=== PATIENT | male | born 1955 | race Two or more races ===

== ENCOUNTER 2020-08-28 10:47 | Inpatient (IN) | payer MEDICAID, OTHER ==
[~2020-08-28] VITALS: Ht 154.9 cm; Wt 74.6 kg
[2020-08-28 11:59] LABS: Basophils # (auto) 0 10 ^3/uL (0-0.2); Basophils % (auto) 0.2 % (0.0-2.0); Eosinophils # (auto) 0 10 ^3/uL (0-0.8); Hematocrit 36.6 % (41.0-53.0); Hemoglobin 12.1 g/dL (13.5-17.5); Lymphocytes # (auto) 1.6 10 ^3/uL (0.4-5.4); Lymphocytes % (auto) 12.2 % (10.0-50.0); Mean Corpuscular Hemoglobin 29.2 pg (28.0-32.0); Mean Corpuscular Volume 88.5 fL (80.0-100.0); Monocytes # (auto) 0.2 10 ^3/uL (0-1.3); Monocytes % (auto) 1.3 % (0.0-12.0); Neutrophils % (auto) 86.3 % (37.0-80.0); Nucleated Red Blood Cells % 0.2 %; Platelet Count (auto) 250 10^3/uL (140-450); Red Blood Cells 4.14 10^6/uL (4.5-5.90); Red Cell Distribution Width 15.2 % (11.8-14.3); White Blood Cell 12.8 10^3/uL (4.4-10.8)
[2020-08-28] MEDS ORDERED: SODIUM CHLORIDE 0.9% 1,000 ML IV ONE (12:00)
[2020-08-28 12:18] LABS: INR 1.02 (0.9-1.15); Partial Thromboplastin Time 34.2 sec (23.0-31.2)
[2020-08-28 12:20] LABS: Albumin 1.3 g/dL (3.4-5.0); BUN/Creatinine Ratio 12.6; Calcium 7.9 mg/dL (8.5-10.1); Potassium 3.5 mmol/L (3.5-5.1)
[2020-08-28 12:25] LABS: Lactic Acid w/Reflex 5.8 mmol/L (0.4-2.0)
[2020-08-28 12:27] LABS: Bilirubin, Total 0.4 mg/dL (0.2-1.0); Total Protein 6.3 g/dL (6.4-8.2)
[2020-08-28] MEDS ORDERED: DexAMETHasone SOD PHOS 10MG/1ML VIAL INJ IV ONE (12:45)
[2020-08-28] MEDS ORDERED: AZITHROMYCIN 500MG/ 250ML 250 ML IV ONE (12:45)
[2020-08-28] MEDS ORDERED: HYDROcodone-ACET 5/325MG TAB PO PRN (14:00)
[2020-08-28] MEDS ORDERED: NITROGLYCERIN 0.4 MG SL TAB SL PRN (14:00)
[2020-08-28] MEDS ORDERED: MORPHINE SULF INJ 2 MG/ML SYRINGE 1ML IV PRN ×2 (14:00)
[2020-08-28] MEDS ORDERED: ONDANSETRON HCL 4 MG/2 ML VIAL IV PRN (14:00)
[2020-08-28] MEDS ORDERED: DEXTROSE (50%) 50ML SYRG IV PRN (14:00)
[2020-08-28] MEDS ORDERED: REMDESIVIR PER PHARMACY 0 ML IV SCH (14:00)
[2020-08-28] MEDS ORDERED: ACETAMINOPHEN 500 MG TAB PO PRN (14:00)
[2020-08-28] MEDS ORDERED: FUROSEMIDE 40 MG/4 ML VIAL IV ONE (14:15)
[2020-08-28 14:40] LABS: HDL Cholesterol 54 mg/dL (40-59); LDL Cholesterol 130 mg/dL (< 100); Lactate Dehydrogenase 641 U/L (87-241); Triglycerides 334 mg/dL (< 150)
[2020-08-28 14:51] LABS: CRP High Sensitivity > 19.0 mg/dL (< 0.3)
[2020-08-28 14:53] LABS: Cholesterol 248 mg/dL (< 200)
[2020-08-28] MEDS: ACCU-CHEK COMFORT CURVE STRIP VI SCH ×2 (16:55→21:57)
[2020-08-28] MEDS: InsuLIN REG 1unit/0.01ml Soln (100units/ml) SC SCH ×2 (17:26→21:57)
[2020-08-28] MEDS: BUDESONIDE (INHALATION) 180 MCG IH IN SCH (22:00)
[2020-08-29] MEDS: BUDESONIDE (INHALATION) 180 MCG IH IN SCH ×2 (06:20→18:44)
[2020-08-29] MEDS: ACCU-CHEK COMFORT CURVE STRIP VI SCH ×4 (06:26→22:00)
[2020-08-29] MEDS: InsuLIN REG 1unit/0.01ml Soln (100units/ml) SC SCH ×4 (06:26→22:00)
[2020-08-29 06:42] LABS: Basophils # (auto) 0 10 ^3/uL (0-0.2); Basophils % (auto) 0.2 % (0.0-2.0); Eosinophils # (auto) 0 10 ^3/uL (0-0.8); Hematocrit 36.6 % (41.0-53.0); Hemoglobin 11.7 g/dL (13.5-17.5); Lymphocytes % (auto) 7.7 % (10.0-50.0); Mean Corpuscular Hemoglobin 28.7 pg (28.0-32.0); Mean Corpuscular Hgb Conc. 32.1 g/dL (32.0-36.0); Mean Corpuscular Volume 89.4 fL (80.0-100.0); Monocytes # (auto) 0.2 10 ^3/uL (0-1.3); Monocytes % (auto) 1.4 % (0.0-12.0); Neutrophils # (auto) 11.7 10 ^3/uL (1.6-8.6); Neutrophils % (auto) 90.7 % (37.0-80.0); Platelet Count (auto) 245 10^3/uL (140-450); Red Blood Cells 4.09 10^6/uL (4.5-5.90); Red Cell Distribution Width 15.7 % (11.8-14.3); White Blood Cell 12.9 10^3/uL (4.4-10.8)
[2020-08-29 07:15] LABS: BUN/Creatinine Ratio 17.5; Bilirubin, Total 0.4 mg/dL (0.2-1.0); Calcium 8.3 mg/dL (8.5-10.1); Total Protein 6.5 g/dL (6.4-8.2)
[2020-08-29 07:21] LABS: Albumin 1.1 g/dL (3.4-5.0)
[2020-08-29 07:23] LABS: Potassium 4.3 mmol/L (3.5-5.1)
[2020-08-29] MEDS ORDERED: cefTRIAXone 1GM/50ML D5W 50 ML IV SCH (09:00)
[2020-08-29] MEDS: ZINC SULFATE 220mg CAP or TAB PO SCH (10:45)
[2020-08-29] MEDS: DexAMETHasone SOD PHOS 10MG/1ML VIAL INJ IV SCH (10:45)
[2020-08-29] MEDS: CHOLECALCIFEROL (VITD3) 2,000 UNIT CAP/TAB PO SCH (10:46)
[2020-08-29] MEDS: ENOXAPARIN SOD 80 MG/0.8ML SYRINGE SC SCH (10:46)
[2020-08-29] MEDS: ASCORBIC ACID 1,000 MG TAB PO SCH (10:46)
[2020-08-29] MEDS: FAMOTIDINE 20 MG TAB PO SCH (10:46)
[2020-08-29] MEDS ORDERED: METF-371 PO (13:47)
[2020-08-29] MEDS ORDERED: LOSA-69 PO (13:47)
[2020-08-29] MEDS ORDERED: HYDR25TA5 PO (13:47)
[2020-08-29 14:36] LABS: Urine Bacteria FEW /hpf (None Seen); Urine Blood TRACE /uL (Negative); Urine Specific Gravity 1.012 (1.001-1.035); Urine Sperm PRESENT /hpf (None Seen); Urine WBC <1 /hpf (0 - 3)
[2020-08-29] MEDS ORDERED: REMDESIVIR 200 MG in NS 210ml LOADING DOSE ADULT IV ONE (15:00)
[2020-08-29 15:03] LABS: Amphetamine Screen, Urine NEGATIVE (NEGATIVE); Barbiturate Scree,Urine NEGATIVE (NEGATIVE); Benzodiazephine Screen, Urine NEGATIVE (NEGATIVE); Cannabinoid Screen, Urine NEGATIVE (NEGATIVE); Cocaine Screen, Urine NEGATIVE (NEGATIVE); Opiate Scree,Urine NEGATIVE (NEGATIVE); Phencyclidine Screen, Urine NEGATIVE (NEGATIVE)
[2020-08-29 15:06] LABS: Alcohol, Urine < 3.0 mg/dL (0-10)
[2020-08-29] MEDS: PIPERACILLIN-TAZOB 2.25GM 50 ML IV SCH (19:09)
[2020-08-29] MEDS: INSULIN LANTUS (GLARGINE) 1 /0.01ml (100units/ml) SC SCH (22:00)
[2020-08-29] MEDS: ATORVASTATIN 20 MG TAB PO SCH (22:00)
[2020-08-29] MEDS: METOPROLOL TARTRATE 25 MG TAB PO SCH (22:00)
[2020-08-30] MEDS: PIPERACILLIN-TAZOB 2.25GM 50 ML IV SCH ×4 (00:22→19:30)
[2020-08-30] MEDS: BUDESONIDE (INHALATION) 180 MCG IH IN SCH ×2 (06:08→21:56)
[2020-08-30] MEDS: InsuLIN REG 1unit/0.01ml Soln (100units/ml) SC SCH ×4 (06:12→22:00)
[2020-08-30] MEDS: ACCU-CHEK COMFORT CURVE STRIP VI SCH ×4 (06:13→22:00)
[2020-08-30 06:29] LABS: Basophils # (auto) 0 10 ^3/uL (0-0.2); Basophils % (auto) 0.2 % (0.0-2.0); Eosinophils # (auto) 0 10 ^3/uL (0-0.8); Hemoglobin 11.9 g/dL (13.5-17.5); Lymphocytes # (auto) 0.7 10 ^3/uL (0.4-5.4); Lymphocytes % (auto) 4.7 % (10.0-50.0); Mean Corpuscular Hemoglobin 28.8 pg (28.0-32.0); Mean Corpuscular Hgb Conc. 32.2 g/dL (32.0-36.0); Mean Corpuscular Volume 89.4 fL (80.0-100.0); Monocytes # (auto) 0.2 10 ^3/uL (0-1.3); Monocytes % (auto) 1.5 % (0.0-12.0); Neutrophils # (auto) 14.1 10 ^3/uL (1.6-8.6); Neutrophils % (auto) 93.6 % (37.0-80.0); Nucleated Red Blood Cells % 0.1 %; Platelet Count (auto) 276 10^3/uL (140-450); Red Blood Cells 4.14 10^6/uL (4.5-5.90); Red Cell Distribution Width 15.4 % (11.8-14.3); White Blood Cell 15.1 10^3/uL (4.4-10.8)
[2020-08-30 06:41] LABS: Lactic Acid w/Reflex 3.2 mmol/L (0.4-2.0)
[2020-08-30 06:45] LABS: Potassium 3.8 mmol/L (3.5-5.1)
[2020-08-30 06:58] LABS: BUN/Creatinine Ratio 21.9; Bilirubin, Total 0.2 mg/dL (0.2-1.0); Calcium 8.3 mg/dL (8.5-10.1); Magnesium 2.8 mg/dL (1.6-2.6); Total Protein 6.4 g/dL (6.4-8.2)
[2020-08-30 07:29] LABS: Albumin 0.9 g/dL (3.4-5.0)
[2020-08-30] MEDS: DexAMETHasone SOD PHOS 10MG/1ML VIAL INJ IV SCH (10:27)
[2020-08-30] MEDS: ZINC SULFATE 220mg CAP or TAB PO SCH (10:27)
[2020-08-30] MEDS: METOPROLOL TARTRATE 25 MG TAB PO SCH ×2 (10:27→22:00)
[2020-08-30] MEDS: ASCORBIC ACID 1,000 MG TAB PO SCH (10:28)
[2020-08-30] MEDS: ENOXAPARIN SOD 80 MG/0.8ML SYRINGE SC SCH (10:28)
[2020-08-30] MEDS: FAMOTIDINE 20 MG TAB PO SCH (10:28)
[2020-08-30] MEDS: CHOLECALCIFEROL (VITD3) 2,000 UNIT CAP/TAB PO SCH (10:28)
[2020-08-30] MEDS: REMDESIVIR 100 MG in SODIUM CHL 0.9% 250 ML IV SCH (15:00)
[2020-08-30] MEDS: INSULIN LANTUS (GLARGINE) 1 /0.01ml (100units/ml) SC SCH (22:00)
[2020-08-30] MEDS: ATORVASTATIN 20 MG TAB PO SCH (22:00)
[2020-08-31] MEDS: PIPERACILLIN-TAZOB 2.25GM 50 ML IV SCH ×4 (00:07→18:00)
[2020-08-31] MEDS ORDERED: LORazepam 2MG/ML-1ML VIAL IV ONE ×2 (05:15→12:30)
[2020-08-31] MEDS ORDERED: LORazepam 2MG/ML-1ML VIAL ONE (05:18)
[2020-08-31] MEDS: InsuLIN REG 1unit/0.01ml Soln (100units/ml) SC SCH ×4 (06:27→22:39)
[2020-08-31] MEDS: ACCU-CHEK COMFORT CURVE STRIP VI SCH ×4 (06:27→22:37)
[2020-08-31 06:53] LABS: Basophils # (auto) 0 10 ^3/uL (0-0.2); Basophils % (auto) 0.3 % (0.0-2.0); Eosinophils # (auto) 0 10 ^3/uL (0-0.8); Hematocrit 33.2 % (41.0-53.0); Hemoglobin 10.5 g/dL (13.5-17.5); Lymphocytes # (auto) 0.4 10 ^3/uL (0.4-5.4); Lymphocytes % (auto) 3.2 % (10.0-50.0); Mean Corpuscular Hgb Conc. 31.7 g/dL (32.0-36.0); Mean Corpuscular Volume 88.3 fL (80.0-100.0); Monocytes # (auto) 0.3 10 ^3/uL (0-1.3); Monocytes % (auto) 2.4 % (0.0-12.0); Neutrophils # (auto) 12.3 10 ^3/uL (1.6-8.6); Neutrophils % (auto) 94.1 % (37.0-80.0); Nucleated Red Blood Cells % 0.3 %; Platelet Count (auto) 279 10^3/uL (140-450); Red Blood Cells 3.76 10^6/uL (4.5-5.90); White Blood Cell 13.1 10^3/uL (4.4-10.8)
[2020-08-31 07:24] LABS: Potassium 3.6 mmol/L (3.5-5.1)
[2020-08-31 07:46] LABS: BUN/Creatinine Ratio 26.1; Calcium 8.1 mg/dL (8.5-10.1); Phosphorus 3.9 mg/dL (2.5-4.90)
[2020-08-31] MEDS: BUDESONIDE (INHALATION) 180 MCG IH IN SCH ×2 (08:20→22:00)
[2020-08-31] MEDS: METOPROLOL TARTRATE 25 MG TAB PO SCH ×2 (10:00→22:00)
[2020-08-31] MEDS: ENOXAPARIN SOD 80 MG/0.8ML SYRINGE SC SCH (10:00)
[2020-08-31] MEDS: FAMOTIDINE 20 MG TAB PO SCH (10:00)
[2020-08-31] MEDS: DexAMETHasone SOD PHOS 10MG/1ML VIAL INJ IV SCH (10:00)
[2020-08-31] MEDS: ASCORBIC ACID 1,000 MG TAB PO SCH (10:00)
[2020-08-31] MEDS: ZINC SULFATE 220mg CAP or TAB PO SCH (10:00)
[2020-08-31] MEDS: CHOLECALCIFEROL (VITD3) 2,000 UNIT CAP/TAB PO SCH (10:00)
[2020-08-31] MEDS ORDERED: HALOPERIDOL LACTATE 5 MG/ML INJ VIAL IM ONE (12:30)
[2020-08-31] MEDS ORDERED: ETOMIDATE (2MG/ML) 20ML VIAL IV ONE ×2 (13:14→13:30)
[2020-08-31] MEDS ORDERED: MIDAZOLAM DRIP 50 mg/50mL 50 ML IV ONE ×2 (13:16→13:49)
[2020-08-31 13:35] VITALS: BP 148/96
[2020-08-31] MEDS ORDERED: PROPOFOL 100 ML IV ONE (13:38)
[2020-08-31] MEDS: fentaNYL Drip 2500mCg/250mlNS 250 ML IV SCH (14:00)
[2020-08-31] MEDS ORDERED: REMDESIVIR PER PHARMACY 0 ML IV SCH (14:00)
[2020-08-31] MEDS: MIDAZOLAM DRIP 50 mg/50mL 50 ML IV SCH (14:10)
[2020-08-31] MEDS: PROPOFOL 100 ML IV SCH (14:42)
[2020-08-31] MEDS: REMDESIVIR 100 MG in SODIUM CHL 0.9% 250 ML IV SCH (15:00)
[2020-08-31 18:44] VITALS: BP 133/86
[2020-08-31] MEDS ORDERED: NOREPINEPHRINE 8 MG/250ML KIT 250 ML IV ONE (19:28)
[2020-08-31] MEDS: NOREPINEPHRINE 8 MG/250ML KIT 250 ML IV SCH (19:52)
[2020-08-31] MEDS: INSULIN LANTUS (GLARGINE) 1 /0.01ml (100units/ml) SC SCH (22:38)
[2020-08-31] MEDS: ATORVASTATIN 20 MG TAB PO SCH (22:39)
[2020-09-01] VITALS (17 sets, daily range): BP systolic 91–136; BP diastolic 52–71
[2020-09-01] MEDS: PIPERACILLIN-TAZOB 2.25GM 50 ML IV SCH ×4 (01:00→17:52)
[2020-09-01 03:29] LABS: Urine Bacteria NONE SEEN /hpf (None Seen); Urine Blood 3+ /uL (Negative); Urine Hyaline Cast FEW /lpf (0 - 2); Urine Mucus FEW (None Seen); Urine Specific Gravity 1.019 (1.001-1.035); Urine WBC 28 /hpf (0 - 3)
[2020-09-01 03:35] LABS: Protein, Urine 571.6 mg/dL (0.0-11.9)
[2020-09-01 06:04] LABS: Basophils # (auto) 0 10 ^3/uL (0-0.2); Basophils % (auto) 0.3 % (0.0-2.0); Eosinophils # (auto) 0 10 ^3/uL (0-0.8); Hematocrit 32.3 % (41.0-53.0); Hemoglobin 10.3 g/dL (13.5-17.5); Lymphocytes # (auto) 0.7 10 ^3/uL (0.4-5.4); Lymphocytes % (auto) 5.2 % (10.0-50.0); Mean Corpuscular Hemoglobin 28.5 pg (28.0-32.0); Mean Corpuscular Hgb Conc. 32.1 g/dL (32.0-36.0); Monocytes # (auto) 0.4 10 ^3/uL (0-1.3); Monocytes % (auto) 3.1 % (0.0-12.0); Neutrophils # (auto) 11.4 10 ^3/uL (1.6-8.6); Neutrophils % (auto) 91.4 % (37.0-80.0); Nucleated Red Blood Cells % 0.3 %; Platelet Count (auto) 265 10^3/uL (140-450); Red Blood Cells 3.63 10^6/uL (4.5-5.90); Red Cell Distribution Width 15.1 % (11.8-14.3); White Blood Cell 12.5 10^3/uL (4.4-10.8)
[2020-09-01 06:22] LABS: Potassium 4.2 mmol/L (3.5-5.1)
[2020-09-01 06:29] LABS: Calcium 7.7 mg/dL (8.5-10.1)
[2020-09-01] MEDS: ACCU-CHEK COMFORT CURVE STRIP VI SCH ×4 (06:53→22:51)
[2020-09-01] MEDS: InsuLIN REG 1unit/0.01ml Soln (100units/ml) SC SCH ×4 (06:54→23:02)
[2020-09-01] MEDS ORDERED: Glucerna 1.2 Cal 1Liter BOTTLE GT SCH (09:15)
[2020-09-01] MEDS: BUDESONIDE (INHALATION) 180 MCG IH IN SCH (09:30)
[2020-09-01] MEDS: ASCORBIC ACID 1,000 MG TAB PO SCH (10:00)
[2020-09-01] MEDS: CHOLECALCIFEROL (VITD3) 2,000 UNIT CAP/TAB PO SCH (10:00)
[2020-09-01] MEDS: ZINC SULFATE 220mg CAP or TAB PO SCH (10:00)
[2020-09-01] MEDS: PANTOPRAZOLE 40 MG/10 ML VIAL INJ IV SCH (10:00)
[2020-09-01] MEDS: DexAMETHasone SOD PHOS 10MG/1ML VIAL INJ IV SCH (10:00)
[2020-09-01] MEDS: ENOXAPARIN SOD 80 MG/0.8ML SYRINGE SC SCH (10:00)
[2020-09-01] MEDS: MIDAZOLAM DRIP 50 mg/50mL 50 ML IV SCH ×2 (14:00→18:27)
[2020-09-01] MEDS: fentaNYL Drip 2500mCg/250mlNS 250 ML IV SCH (14:00)
[2020-09-01] MEDS: PROPOFOL 100 ML IV SCH (14:30)
[2020-09-01] MEDS: ATORVASTATIN 20 MG TAB PO SCH (22:57)
[2020-09-01] MEDS: INSULIN LANTUS (GLARGINE) 1 /0.01ml (100units/ml) SC SCH (23:03)
[2020-09-02 02:55] VITALS: BP 99/54
[2020-09-02] MEDS: MIDAZOLAM DRIP 50 mg/50mL 50 ML IV SCH (04:08)
[2020-09-02 05:11] LABS: Urine Amorphous Crystal MOD /hpf (None Seen); Urine Bacteria MANY /hpf (None Seen); Urine Blood 3+ /uL (Negative); Urine Mucus MODERATE (None Seen); Urine Specific Gravity 1.022 (1.001-1.035); Urine WBC 11 /hpf (0 - 3)
[2020-09-02 05:32] LABS: Protein, Urine 689.3 mg/dL (0.0-11.9)
[2020-09-02] MEDS: PIPERACILLIN-TAZOB 2.25GM 50 ML IV SCH ×4 (06:00→17:26)
[2020-09-02 06:20] VITALS: BP 95/56
[2020-09-02] MEDS: ACCU-CHEK COMFORT CURVE STRIP VI SCH ×4 (06:42→22:28)
[2020-09-02] MEDS: InsuLIN REG 1unit/0.01ml Soln (100units/ml) SC SCH ×4 (06:48→22:28)
[2020-09-02] MEDS: NOREPINEPHRINE 8 MG/250ML KIT 250 ML IV SCH ×2 (06:54→19:45)
[2020-09-02] MEDS: ENOXAPARIN SOD 80 MG/0.8ML SYRINGE SC SCH (09:02)
[2020-09-02] MEDS: PANTOPRAZOLE 40 MG/10 ML VIAL INJ IV SCH (09:02)
[2020-09-02] MEDS: DexAMETHasone SOD PHOS 10MG/1ML VIAL INJ IV SCH (09:02)
[2020-09-02] MEDS: ZINC SULFATE 220mg CAP or TAB PO SCH (09:18)
[2020-09-02] MEDS: CHOLECALCIFEROL (VITD3) 2,000 UNIT CAP/TAB PO SCH (09:18)
[2020-09-02] MEDS: ASCORBIC ACID 1,000 MG TAB PO SCH (09:18)
[2020-09-02 09:19] LABS: Hematocrit 33.4 % (41.0-53.0); Hemoglobin 10.6 g/dL (13.5-17.5); Mean Corpuscular Hemoglobin 28.5 pg (28.0-32.0); Mean Corpuscular Hgb Conc. 31.8 g/dL (32.0-36.0); Mean Corpuscular Volume 89.7 fL (80.0-100.0); Platelet Count (auto) 302 10^3/uL (140-450); Red Blood Cells 3.72 10^6/uL (4.5-5.90); Red Cell Distribution Width 15.3 % (11.8-14.3); White Blood Cell 18.7 10^3/uL (4.4-10.8)
[2020-09-02 09:40] LABS: Calcium 7.5 mg/dL (8.5-10.1); Potassium 4.1 mmol/L (3.5-5.1)
[2020-09-02 09:41] LABS: Basophils % (manual) 0 (0.0-2.0); Blast Cells 0; Eosinophils % (manual) 0 (0-7); Metamyelocytes % 0; Myelocytes % 0; Promyelocytes % 0; Reactive Lymphocytes 0
[2020-09-02 09:42] LABS: BUN/Creatinine Ratio 21.1
[2020-09-02] MEDS ORDERED: ACETAMINOPHEN 650 mg PER 20.3 mL UD ONE (09:56)
[2020-09-02 10:17] LABS: Band Neutrophils % (manual) 2; Lymphocytes % (manual) 12 (10.0-50.0); Monocytes % (manual) 1 (0-12)
[2020-09-02] MEDS: ACETAMINOPHEN 650 mg PER 20.3 mL UD PO PRN (10:26)
[2020-09-02 13:10] VITALS: BP 127/62
[2020-09-02] MEDS: fentaNYL Drip 2500mCg/250mlNS 250 ML IV SCH (14:00)
[2020-09-02] MEDS: PROPOFOL 100 ML IV SCH (14:30)
[2020-09-02] MEDS ORDERED: SODIUM CHLORIDE 0.9% 1,000 ML IV ONE (15:45)
[2020-09-02] MEDS ORDERED: REMDESIVIR PER PHARMACY 0 ML IV SCH (16:00)
[2020-09-02] MEDS: DOPamine 1600MCG/ML D5W 250 ML IV SCH (16:43)
[2020-09-02] MEDS ORDERED: LINEZOLID 600MG/300ML 300 ML IV ONE (18:00)
[2020-09-02 18:31] VITALS: BP 131/58
[2020-09-02] MEDS: REMDESIVIR 100 MG in SODIUM CHL 0.9% 250 ML IV SCH (20:00)
[2020-09-02] MEDS: INSULIN LANTUS (GLARGINE) 1 /0.01ml (100units/ml) SC SCH (22:28)
[2020-09-02 22:30] VITALS: BP 126/66
[2020-09-03] MEDS: PIPERACILLIN-TAZOB 2.25GM 50 ML IV SCH ×4 (00:13→18:00)
[2020-09-03 01:44] VITALS: BP 113/63
[2020-09-03] MEDS: LINEZOLID 600MG/300ML 300 ML IV SCH ×2 (03:51→16:00)
[2020-09-03 06:05] VITALS: BP 144/72
[2020-09-03 06:11] LABS: Hemoglobin 8.3 g/dL (13.5-17.5)
[2020-09-03 06:13] LABS: Hematocrit 25.6 % (41.0-53.0); Mean Corpuscular Hemoglobin 29.1 pg (28.0-32.0); Mean Corpuscular Hgb Conc. 32.3 g/dL (32.0-36.0); Platelet Count (auto) 308 10^3/uL (140-450); Red Blood Cells 2.84 10^6/uL (4.5-5.90); Red Cell Distribution Width 15.2 % (11.8-14.3); White Blood Cell 13.5 10^3/uL (4.4-10.8)
[2020-09-03 06:22] LABS: Potassium 3.8 mmol/L (3.5-5.1)
[2020-09-03 06:29] LABS: Albumin 1.2 g/dL (3.4-5.0); Bilirubin, Total 0.3 mg/dL (0.2-1.0); Calcium 7.3 mg/dL (8.5-10.1); Magnesium 3.3 mg/dL (1.6-2.6); Total Protein 5.6 g/dL (6.4-8.2)
[2020-09-03 06:35] LABS: INR 1.08 (0.9-1.15)
[2020-09-03] MEDS: ACCU-CHEK COMFORT CURVE STRIP VI SCH ×3 (06:35→17:22)
[2020-09-03] MEDS: InsuLIN REG 1unit/0.01ml Soln (100units/ml) SC SCH ×3 (06:36→17:21)
[2020-09-03 06:44] LABS: Basophils % (manual) 0 (0.0-2.0); Blast Cells 0; Eosinophils % (manual) 0 (0-7); Myelocytes % 0; Promyelocytes % 0; Reactive Lymphocytes 0
[2020-09-03 09:38] LABS: Band Neutrophils % (manual) 5; Lymphocytes % (manual) 11 (10.0-50.0); Metamyelocytes % 2; Monocytes % (manual) 3 (0-12)
[2020-09-03] MEDS: ENOXAPARIN SOD 80 MG/0.8ML SYRINGE SC SCH (10:00)
[2020-09-03] MEDS: PANTOPRAZOLE 40 MG/10 ML VIAL INJ IV SCH (10:00)
[2020-09-03] MEDS: DexAMETHasone SOD PHOS 10MG/1ML VIAL INJ IV SCH (10:00)
[2020-09-03] MEDS: ASCORBIC ACID 1,000 MG TAB PO SCH (10:00)
[2020-09-03] MEDS: CHOLECALCIFEROL (VITD3) 2,000 UNIT CAP/TAB PO SCH (10:00)
[2020-09-03] MEDS: ZINC SULFATE 220mg CAP or TAB PO SCH (10:00)
[2020-09-03 13:22] VITALS: BP 138/71
[2020-09-03] MEDS: fentaNYL Drip 2500mCg/250mlNS 250 ML IV SCH (14:00)
[2020-09-03] MEDS: MIDAZOLAM DRIP 50 mg/50mL 50 ML IV SCH (14:00)
[2020-09-03] MEDS ORDERED: DEXTROSE (50%) 50ML SYRG IV PRN (14:15)
[2020-09-03] MEDS: PROPOFOL 100 ML IV SCH ×3 (14:30→21:00)
[2020-09-03] MEDS: REMDESIVIR 100 MG in SODIUM CHL 0.9% 250 ML IV SCH ×2 (15:00→18:32)
[2020-09-03] MEDS: DOPamine 1600MCG/ML D5W 250 ML IV SCH (16:30)
[2020-09-03 19:30] VITALS: BP 137/70
[2020-09-03] MEDS: INSULIN LANTUS (GLARGINE) 1 /0.01ml (100units/ml) SC SCH (22:00)
[2020-09-03 22:16] VITALS: BP 152/77
[2020-09-04] MEDS: PIPERACILLIN-TAZOB 2.25GM 50 ML IV SCH ×4 (00:12→18:00)
[2020-09-04 02:04] VITALS: BP 127/77
[2020-09-04] MEDS: LINEZOLID 600MG/300ML 300 ML IV SCH ×2 (04:00→20:45)
[2020-09-04] MEDS: ACCU-CHEK COMFORT CURVE STRIP VI SCH ×4 (06:00→17:51)
[2020-09-04] MEDS: InsuLIN REG 1unit/0.01ml Soln (100units/ml) SC SCH ×4 (06:00→17:51)
[2020-09-04] MEDS: PROPOFOL 100 ML IV SCH ×2 (06:53→17:53)
[2020-09-04 07:42] LABS: Hematocrit 33.5 % (41.0-53.0); Hemoglobin 10.8 g/dL (13.5-17.5); Mean Corpuscular Hemoglobin 29.8 pg (28.0-32.0); Mean Corpuscular Hgb Conc. 32.1 g/dL (32.0-36.0); Mean Corpuscular Volume 92.7 fL (80.0-100.0); Platelet Count (auto) 308 10^3/uL (140-450); Red Blood Cells 3.62 10^6/uL (4.5-5.90); Red Cell Distribution Width 15.6 % (11.8-14.3); White Blood Cell 13.2 10^3/uL (4.4-10.8)
[2020-09-04 07:45] VITALS: BP 119/71
[2020-09-04 08:09] LABS: Potassium 3.6 mmol/L (3.5-5.1)
[2020-09-04 08:26] LABS: Albumin 1.1 g/dL (3.4-5.0); BUN/Creatinine Ratio 27.2; Bilirubin, Total 0.3 mg/dL (0.2-1.0); CRP High Sensitivity 4.73 mg/dL (< 0.3); Calcium 7.4 mg/dL (8.5-10.1); Total Protein 5.6 g/dL (6.4-8.2)
[2020-09-04 08:28] LABS: Band Neutrophils % (manual) 0; Basophils % (manual) 0 (0.0-2.0); Blast Cells 0; Myelocytes % 0; Promyelocytes % 0; Reactive Lymphocytes 0
[2020-09-04] MEDS: CHOLECALCIFEROL (VITD3) 2,000 UNIT CAP/TAB PO SCH (10:00)
[2020-09-04] MEDS: ENOXAPARIN SOD 80 MG/0.8ML SYRINGE SC SCH (10:00)
[2020-09-04] MEDS: DexAMETHasone SOD PHOS 10MG/1ML VIAL INJ IV SCH (10:00)
[2020-09-04] MEDS: ZINC SULFATE 220mg CAP or TAB PO SCH (10:00)
[2020-09-04] MEDS: ASCORBIC ACID 1,000 MG TAB PO SCH (10:00)
[2020-09-04] MEDS: PANTOPRAZOLE 40 MG/10 ML VIAL INJ IV SCH (10:00)
[2020-09-04 12:30] LABS: Eosinophils % (manual) 1 (0-7); Lymphocytes % (manual) 5 (10.0-50.0); Metamyelocytes % 2; Monocytes % (manual) 2 (0-12)
[2020-09-04] MEDS: MIDAZOLAM DRIP 50 mg/50mL 50 ML IV SCH (14:00)
[2020-09-04] MEDS: fentaNYL Drip 2500mCg/250mlNS 250 ML IV SCH (14:00)
[2020-09-04] MEDS: REMDESIVIR 100 MG in SODIUM CHL 0.9% 250 ML IV SCH (15:00)
[2020-09-04] MEDS: DOPamine 1600MCG/ML D5W 250 ML IV SCH (16:30)
[2020-09-04 18:20] VITALS: BP 104/60
[2020-09-05] MEDS: ACCU-CHEK COMFORT CURVE STRIP VI SCH ×5 (00:05→23:42)
[2020-09-05] MEDS: PIPERACILLIN-TAZOB 2.25GM 50 ML IV SCH ×5 (00:28→23:42)
[2020-09-05] MEDS: INSULIN LANTUS (GLARGINE) 1 /0.01ml (100units/ml) SC SCH ×2 (00:30→22:00)
[2020-09-05 03:19] VITALS: BP 104/60
[2020-09-05] MEDS: ACETAMINOPHEN 650 mg PER 20.3 mL UD PO PRN ×2 (03:37→04:50)
[2020-09-05] MEDS: LINEZOLID 600MG/300ML 300 ML IV SCH ×2 (04:00→16:00)
[2020-09-05] MEDS: InsuLIN REG 1unit/0.01ml Soln (100units/ml) SC SCH ×5 (06:00→23:41)
[2020-09-05 06:25] LABS: Potassium 3.3 mmol/L (3.5-5.1)
[2020-09-05 06:49] LABS: BUN/Creatinine Ratio 25.9; Bilirubin, Total 0.5 mg/dL (0.2-1.0); Calcium 7.5 mg/dL (8.5-10.1); Total Protein 5.6 g/dL (6.4-8.2)
[2020-09-05 07:02] VITALS: BP 123/60
[2020-09-05] MEDS: ZINC SULFATE 220mg CAP or TAB PO SCH (10:00)
[2020-09-05] MEDS: CHOLECALCIFEROL (VITD3) 2,000 UNIT CAP/TAB PO SCH (10:00)
[2020-09-05] MEDS: ASCORBIC ACID 1,000 MG TAB PO SCH (10:00)
[2020-09-05] MEDS: DexAMETHasone SOD PHOS 10MG/1ML VIAL INJ IV SCH (10:00)
[2020-09-05] MEDS: ENOXAPARIN SOD 80 MG/0.8ML SYRINGE SC SCH (10:00)
[2020-09-05] MEDS: PANTOPRAZOLE 40 MG/10 ML VIAL INJ IV SCH (10:00)
[2020-09-05] MEDS: fentaNYL Drip 2500mCg/250mlNS 250 ML IV SCH (14:00)
[2020-09-05] MEDS: MIDAZOLAM DRIP 50 mg/50mL 50 ML IV SCH (14:00)
[2020-09-05] MEDS: DOPamine 1600MCG/ML D5W 250 ML IV SCH (16:44)
[2020-09-05 18:48] VITALS: BP 128/75
[2020-09-05 22:21] VITALS: BP 152/75
[2020-09-06] MEDS: PROPOFOL 100 ML IV SCH (01:40)
[2020-09-06 01:56] VITALS: BP 132/77
[2020-09-06] MEDS: LINEZOLID 600MG/300ML 300 ML IV SCH ×2 (04:00→17:12)
[2020-09-06 06:01] VITALS: BP 126/71
[2020-09-06 06:03] LABS: Potassium 3.8 mmol/L (3.5-5.1)
[2020-09-06] MEDS: InsuLIN REG 1unit/0.01ml Soln (100units/ml) SC SCH ×3 (06:09→18:39)
[2020-09-06 06:10] LABS: BUN/Creatinine Ratio 28.5; Bilirubin, Total 0.4 mg/dL (0.2-1.0); Calcium 8.1 mg/dL (8.5-10.1); Total Protein 5.5 g/dL (6.4-8.2)
[2020-09-06] MEDS: ACCU-CHEK COMFORT CURVE STRIP VI SCH ×3 (06:22→18:39)
[2020-09-06] MEDS: PIPERACILLIN-TAZOB 2.25GM 50 ML IV SCH ×3 (06:22→18:34)
[2020-09-06] MEDS: CHOLECALCIFEROL (VITD3) 2,000 UNIT CAP/TAB PO SCH (10:45)
[2020-09-06] MEDS: DexAMETHasone SOD PHOS 10MG/1ML VIAL INJ IV SCH (10:45)
[2020-09-06] MEDS: ZINC SULFATE 220mg CAP or TAB PO SCH (10:45)
[2020-09-06] MEDS: ENOXAPARIN SOD 80 MG/0.8ML SYRINGE SC SCH (10:45)
[2020-09-06] MEDS: PANTOPRAZOLE 40 MG/10 ML VIAL INJ IV SCH (10:45)
[2020-09-06] MEDS: ASCORBIC ACID 1,000 MG TAB PO SCH (10:45)
[2020-09-06] MEDS: fentaNYL Drip 2500mCg/250mlNS 250 ML IV SCH (14:00)
[2020-09-06] MEDS: MIDAZOLAM DRIP 50 mg/50mL 50 ML IV SCH (14:00)
[2020-09-06 17:12] VITALS: BP 115/70
[2020-09-06 17:27] VITALS: BP 122/80
[2020-09-06 18:30] VITALS: BP 107/60
[2020-09-06 20:29] VITALS: BP 115/56
[2020-09-06] MEDS: INSULIN LANTUS (GLARGINE) 1 /0.01ml (100units/ml) SC SCH (23:13)
[2020-09-07 01:25] VITALS: BP 117/60
[2020-09-07] MEDS: PIPERACILLIN-TAZOB 2.25GM 50 ML IV SCH ×5 (01:54→23:42)
[2020-09-07] MEDS: InsuLIN REG 1unit/0.01ml Soln (100units/ml) SC SCH ×5 (02:07→23:42)
[2020-09-07] MEDS: LINEZOLID 600MG/300ML 300 ML IV SCH ×2 (04:26→15:37)
[2020-09-07 05:27] LABS: Basophils # (auto) 0 10 ^3/uL (0-0.2); Basophils % (auto) 0.2 % (0.0-2.0); Eosinophils # (auto) 0 10 ^3/uL (0-0.8); Eosinophils % (auto) 0.4 % (0.0-7.0); Hemoglobin 7.3 g/dL (13.5-17.5); Lymphocytes # (auto) 0.5 10 ^3/uL (0.4-5.4); Monocytes # (auto) 0.3 10 ^3/uL (0-1.3); Monocytes % (auto) 2.3 % (0.0-12.0); Nucleated Red Blood Cells % 0.1 %
[2020-09-07 05:31] LABS: Hematocrit 22.2 % (41.0-53.0); Lymphocytes % (auto) 3.8 % (10.0-50.0); Mean Corpuscular Hemoglobin 29.1 pg (28.0-32.0); Mean Corpuscular Hgb Conc. 32.8 g/dL (32.0-36.0); Mean Corpuscular Volume 88.6 fL (80.0-100.0); Neutrophils # (auto) 11.4 10 ^3/uL (1.6-8.6); Neutrophils % (auto) 93.3 % (37.0-80.0); Platelet Count (auto) 383 10^3/uL (140-450); Red Cell Distribution Width 15.2 % (11.8-14.3); White Blood Cell 12.2 10^3/uL (4.4-10.8)
[2020-09-07 05:44] LABS: INR 1.06 (0.9-1.15)
[2020-09-07 05:51] LABS: Anion Gap 9 (5-15); Blood Urea Nitrogen 77 mg/dL (7-18); Calcium 7.6 mg/dL (8.5-10.1); Carbon Dioxide 21 mmol/L (21-32); Chloride 110 mmol/L (98-107); Glucose 281 mg/dL (74-106); Magnesium 3.6 mg/dL (1.6-2.6); Potassium 3.5 mmol/L (3.5-5.1); Sodium 140 mmol/L (136-145)
[2020-09-07 06:00] LABS: GFR African American 35 mL/min; GFR Non-African American 29 mL/min; Lactate Dehydrogenase 387 U/L (87-241)
[2020-09-07] MEDS: ACCU-CHEK COMFORT CURVE STRIP VI SCH ×5 (06:11→23:42)
[2020-09-07 06:15] VITALS: BP 115/58
[2020-09-07 06:32] LABS: CRP High Sensitivity > 19.0 mg/dL (< 0.3)
[2020-09-07] MEDS: ZINC SULFATE 220mg CAP or TAB PO SCH (09:20)
[2020-09-07] MEDS: PANTOPRAZOLE 40 MG/10 ML VIAL INJ IV SCH (09:20)
[2020-09-07] MEDS: DexAMETHasone SOD PHOS 10MG/1ML VIAL INJ IV SCH ×2 (09:20→21:22)
[2020-09-07] MEDS: ENOXAPARIN SOD 80 MG/0.8ML SYRINGE SC SCH (09:21)
[2020-09-07] MEDS: ASCORBIC ACID 1,000 MG TAB PO SCH (09:21)
[2020-09-07] MEDS: CHOLECALCIFEROL (VITD3) 2,000 UNIT CAP/TAB PO SCH (09:21)
[2020-09-07] MEDS: fentaNYL Drip 2500mCg/250mlNS 250 ML IV SCH (12:42)
[2020-09-07] MEDS ORDERED: FUROSEMIDE 40 MG/4 ML VIAL IV ONE (12:45)
[2020-09-07] MEDS ORDERED: POTASSIUM CHL 10 Meq TABLET PO ONE (12:45)
[2020-09-07] MEDS ORDERED: POTASSIUM EFFERVESENT TAB 25 MEQ PO ONE (13:00)
[2020-09-07] MEDS: MIDAZOLAM DRIP 50 mg/50mL 50 ML IV SCH (14:00)
[2020-09-07] MEDS ORDERED: methylPREDNISolone SOD SUCC 40 MG/ML VL IV ONE (17:00)
[2020-09-07] MEDS ORDERED: diphenhdrAMINE HCL 50 MG/1 ML VL IV ONE (17:00)
[2020-09-07] MEDS ORDERED: ACETAMINOPHEN 650 mg PER 20.3 mL UD PO ONE (17:00)
[2020-09-07] MEDS ORDERED: TOCILIZUMAB 400 MG in SODIUM CHL 0.9% 80 ML IV ONE (17:30)
[2020-09-07] MEDS: FUROSEMIDE 40 MG/4 ML VIAL IV SCH (17:33)
[2020-09-07 19:25] VITALS: BP 119/15
[2020-09-07] MEDS: INSULIN LANTUS (GLARGINE) 1 /0.01ml (100units/ml) SC SCH (21:22)
[2020-09-07 22:20] VITALS: BP 151/78
[2020-09-08] MEDS: LINEZOLID 600MG/300ML 300 ML IV SCH ×2 (04:08→17:45)
[2020-09-08 04:21] LABS: Basophils # (auto) 0 10 ^3/uL (0-0.2); Eosinophils # (auto) 0 10 ^3/uL (0-0.8); Lymphocytes # (auto) 0.6 10 ^3/uL (0.4-5.4); Mean Corpuscular Volume 87.8 fL (80.0-100.0); Monocytes # (auto) 0.3 10 ^3/uL (0-1.3); Monocytes % (auto) 2.4 % (0.0-12.0); Neutrophils # (auto) 13.2 10 ^3/uL (1.6-8.6); Neutrophils % (auto) 92.9 % (37.0-80.0); White Blood Cell 14.2 10^3/uL (4.4-10.8)
[2020-09-08 04:24] LABS: Basophils % (auto) 0.3 % (0.0-2.0); Hematocrit 25.7 % (41.0-53.0); Hemoglobin 8.3 g/dL (13.5-17.5); Lymphocytes % (auto) 4.4 % (10.0-50.0); Mean Corpuscular Hemoglobin 28.3 pg (28.0-32.0); Mean Corpuscular Hgb Conc. 32.2 g/dL (32.0-36.0); Platelet Count (auto) 534 10^3/uL (140-450); Red Blood Cells 2.92 10^6/uL (4.5-5.90); Red Cell Distribution Width 15.2 % (11.8-14.3)
[2020-09-08 04:40] LABS: Potassium 3.7 mmol/L (3.5-5.1)
[2020-09-08 04:46] LABS: Albumin 1.3 g/dL (3.4-5.0); Bilirubin, Total 0.3 mg/dL (0.2-1.0); Calcium 7.9 mg/dL (8.5-10.1); Magnesium 3.4 mg/dL (1.6-2.6)
[2020-09-08] MEDS: PIPERACILLIN-TAZOB 2.25GM 50 ML IV SCH ×4 (05:27→22:57)
[2020-09-08] MEDS: FUROSEMIDE 40 MG/4 ML VIAL IV SCH ×2 (05:27→17:45)
[2020-09-08] MEDS: ACCU-CHEK COMFORT CURVE STRIP VI SCH ×4 (06:00→21:05)
[2020-09-08] MEDS: InsuLIN REG 1unit/0.01ml Soln (100units/ml) SC SCH ×4 (06:00→21:04)
[2020-09-08 06:20] VITALS: BP 155/84
[2020-09-08] MEDS ORDERED: ACETAMINOPHEN 650 mg PER 20.3 mL UD PO ONE (08:30)
[2020-09-08] MEDS ORDERED: methylPREDNISolone SOD SUCC 40 MG/ML VL IV ONE (08:30)
[2020-09-08] MEDS ORDERED: diphenhdrAMINE HCL 50 MG/1 ML VL IV ONE (08:30)
[2020-09-08] MEDS: DexAMETHasone SOD PHOS 10MG/1ML VIAL INJ IV SCH ×2 (08:37→20:45)
[2020-09-08] MEDS: ZINC SULFATE 220mg CAP or TAB PO SCH (08:37)
[2020-09-08] MEDS: PANTOPRAZOLE 40 MG/10 ML VIAL INJ IV SCH (08:37)
[2020-09-08] MEDS: ENOXAPARIN SOD 80 MG/0.8ML SYRINGE SC SCH (08:38)
[2020-09-08] MEDS: ASCORBIC ACID 1,000 MG TAB PO SCH (08:38)
[2020-09-08] MEDS: CHOLECALCIFEROL (VITD3) 2,000 UNIT CAP/TAB PO SCH (08:38)
[2020-09-08] MEDS: POTASSIUM EFFERVESENT TAB 25 MEQ PO SCH (08:38)
[2020-09-08] MEDS ORDERED: TOCILIZUMAB 400 MG in SODIUM CHL 0.9% 80 ML IV ONE (09:00)
[2020-09-08] MEDS ORDERED: POTASSIUM CHL 10 Meq TABLET PO SCH (10:00)
[2020-09-08] MEDS: hydrALAZINE HCL 20 MG/ML VL IV PRN ×2 (17:45→22:58)
[2020-09-08] MEDS: INSULIN LANTUS (GLARGINE) 1 /0.01ml (100units/ml) SC SCH (21:03)
[2020-09-09] MEDS: LINEZOLID 600MG/300ML 300 ML IV SCH ×2 (04:08→16:06)
[2020-09-09] MEDS: ACCU-CHEK COMFORT CURVE STRIP VI SCH ×3 (05:52→18:02)
[2020-09-09] MEDS: InsuLIN REG 1unit/0.01ml Soln (100units/ml) SC SCH ×3 (06:04→18:05)
[2020-09-09] MEDS: PIPERACILLIN-TAZOB 2.25GM 50 ML IV SCH ×3 (06:26→17:51)
[2020-09-09] MEDS: FUROSEMIDE 40 MG/4 ML VIAL IV SCH ×2 (06:27→17:51)
[2020-09-09 07:24] LABS: Hemoglobin 9.6 g/dL (13.5-17.5)
[2020-09-09 07:27] LABS: Hematocrit 30.2 % (41.0-53.0); Mean Corpuscular Hemoglobin 27.9 pg (28.0-32.0); Mean Corpuscular Hgb Conc. 31.9 g/dL (32.0-36.0); Mean Corpuscular Volume 87.4 fL (80.0-100.0); Platelet Count (auto) 601 10^3/uL (140-450); Red Blood Cells 3.45 10^6/uL (4.5-5.90); Red Cell Distribution Width 15.1 % (11.8-14.3)
[2020-09-09 07:30] LABS: Basophils % (manual) 0 (0.0-2.0); Blast Cells 0; Eosinophils % (manual) 0 (0-7); Promyelocytes % 0; Reactive Lymphocytes 0
[2020-09-09 08:12] LABS: Potassium 3.5 mmol/L (3.5-5.1)
[2020-09-09 08:16] LABS: BUN/Creatinine Ratio 28.1; Calcium 8.5 mg/dL (8.5-10.1)
[2020-09-09 08:31] LABS: Band Neutrophils % (manual) 4; Lymphocytes % (manual) 14 (10.0-50.0); Metamyelocytes % 3; Monocytes % (manual) 5 (0-12); Myelocytes % 4
[2020-09-09] MEDS: CHOLECALCIFEROL (VITD3) 2,000 UNIT CAP/TAB PO SCH (10:00)
[2020-09-09] MEDS: ASCORBIC ACID 1,000 MG TAB PO SCH (10:00)
[2020-09-09] MEDS: ZINC SULFATE 220mg CAP or TAB PO SCH (10:00)
[2020-09-09] MEDS: POTASSIUM EFFERVESENT TAB 25 MEQ PO SCH (10:00)
[2020-09-09] MEDS: ENOXAPARIN SOD 80 MG/0.8ML SYRINGE SC SCH (10:19)
[2020-09-09] MEDS: PANTOPRAZOLE 40 MG/10 ML VIAL INJ IV SCH (10:19)
[2020-09-09] MEDS: DexAMETHasone SOD PHOS 10MG/1ML VIAL INJ IV SCH (10:19)
[2020-09-09] MEDS ORDERED: FLUCONAZOLE 200MG/100ML 100 ML IV ONE (15:00)
[2020-09-09] MEDS ORDERED: ACETAMINOPHEN 650 mg PER 20.3 mL UD PO ONE (18:30)
[2020-09-09] MEDS ORDERED: diphenhdrAMINE HCL 50 MG/1 ML VL IV ONE (18:30)
[2020-09-09] MEDS ORDERED: methylPREDNISolone SOD SUCC 40 MG/ML VL IV ONE (18:30)
[2020-09-09] MEDS ORDERED: TOCILIZUMAB 400 MG in SODIUM CHL 0.9% 80 ML IV ONE (19:00)
[2020-09-09] MEDS ORDERED: METOPROLOL TARTRATE 25 MG TAB PO SCH (22:00)
[2020-09-09] MEDS ORDERED: ATORVASTATIN 20 MG TAB PO SCH (22:00)
[2020-09-09] MEDS: INSULIN LANTUS (GLARGINE) 1 /0.01ml (100units/ml) SC SCH (22:32)
[2020-09-10] MEDS: PIPERACILLIN-TAZOB 2.25GM 50 ML IV SCH ×3 (00:01→12:00)
[2020-09-10] MEDS: ACCU-CHEK COMFORT CURVE STRIP VI SCH ×5 (00:03→23:18)
[2020-09-10] MEDS: InsuLIN REG 1unit/0.01ml Soln (100units/ml) SC SCH ×5 (00:22→23:18)
[2020-09-10] MEDS: LINEZOLID 600MG/300ML 300 ML IV SCH (03:43)
[2020-09-10] MEDS: FUROSEMIDE 40 MG/4 ML VIAL IV SCH ×2 (05:48→20:30)
[2020-09-10 08:19] LABS: Hemoglobin 10.3 g/dL (13.5-17.5)
[2020-09-10 08:26] LABS: Potassium 3.8 mmol/L (3.5-5.1)
[2020-09-10 08:32] LABS: Hematocrit 32.2 % (41.0-53.0); Mean Corpuscular Hemoglobin 28.2 pg (28.0-32.0); Mean Corpuscular Hgb Conc. 31.9 g/dL (32.0-36.0); Mean Corpuscular Volume 88.3 fL (80.0-100.0); Platelet Count (auto) 687 10^3/uL (140-450); Red Blood Cells 3.64 10^6/uL (4.5-5.90); Red Cell Distribution Width 15.1 % (11.8-14.3)
[2020-09-10 08:47] LABS: Basophils % (manual) 0 (0.0-2.0); Blast Cells 0; Eosinophils % (manual) 0 (0-7); Metamyelocytes % 0; Promyelocytes % 0; Reactive Lymphocytes 0
[2020-09-10 08:52] LABS: BUN/Creatinine Ratio 30.2; Calcium 8.6 mg/dL (8.5-10.1); Magnesium 3.1 mg/dL (1.6-2.6)
[2020-09-10] MEDS ORDERED: DexAMETHasone SOD PHOS 10MG/1ML VIAL INJ IV SCH (10:00)
[2020-09-10] MEDS ORDERED: ASPirin-EC 81 mg tab PO ONE (10:30)
[2020-09-10 12:00] LABS: Band Neutrophils % (manual) 3; Lymphocytes % (manual) 7 (10.0-50.0); Monocytes % (manual) 6 (0-12); Myelocytes % 1
[2020-09-10] MEDS: PANTOPRAZOLE 40 MG/10 ML VIAL INJ IV SCH (12:06)
[2020-09-10] MEDS: FLUCONAZOLE 200MG/100ML 100 ML IV SCH (12:06)
[2020-09-10] MEDS: ENOXAPARIN SOD 80 MG/0.8ML SYRINGE SC SCH (12:07)
[2020-09-10] MEDS: ASCORBIC ACID 1,000 MG TAB PO SCH (12:08)
[2020-09-10] MEDS: POTASSIUM EFFERVESENT TAB 25 MEQ PO SCH (12:08)
[2020-09-10] MEDS: CHOLECALCIFEROL (VITD3) 2,000 UNIT CAP/TAB PO SCH (12:09)
[2020-09-10] MEDS: ZINC SULFATE 220mg CAP or TAB PO SCH (12:09)
[2020-09-10] MEDS ORDERED: CARVEDILOL 12.5 MG TAB PO ONE (15:15)
[2020-09-10] MEDS ORDERED: FLUCONAZOLE 200MG/100ML 100 ML IV ONE (15:30)
[2020-09-10] MEDS: hydrALAZINE HCL 20 MG/ML VL IV PRN (17:00)
[2020-09-10] MEDS: CARVEDILOL 12.5 MG TAB PO SCH (21:27)
[2020-09-10] MEDS: ATORVASTATIN 20 MG TAB PO SCH (21:30)
[2020-09-10] MEDS: INSULIN LANTUS (GLARGINE) 1 /0.01ml (100units/ml) SC SCH (21:34)
[2020-09-10] MEDS ORDERED: METOPROLOL TARTRATE 25 MG TAB PO SCH (22:00)
[2020-09-11] MEDS: FUROSEMIDE 40 MG/4 ML VIAL IV SCH (05:51)
[2020-09-11] MEDS: InsuLIN REG 1unit/0.01ml Soln (100units/ml) SC SCH ×3 (06:18→19:53)
[2020-09-11] MEDS: ACCU-CHEK COMFORT CURVE STRIP VI SCH ×4 (06:18→23:55)
[2020-09-11 06:53] LABS: Hemoglobin 11.3 g/dL (13.5-17.5); Mean Corpuscular Hgb Conc. 32.1 g/dL (32.0-36.0)
[2020-09-11 06:58] LABS: Hematocrit 35.1 % (41.0-53.0); Mean Corpuscular Hemoglobin 28.3 pg (28.0-32.0); Mean Corpuscular Volume 88.1 fL (80.0-100.0); Red Blood Cells 3.99 10^6/uL (4.5-5.90); Red Cell Distribution Width 15.5 % (11.8-14.3); White Blood Cell 16.4 10^3/uL (4.4-10.8)
[2020-09-11 07:11] LABS: Potassium 3.8 mmol/L (3.5-5.1)
[2020-09-11 07:23] LABS: BUN/Creatinine Ratio 34.4; CRP High Sensitivity 1.79 mg/dL (< 0.3); Calcium 8.7 mg/dL (8.5-10.1)
[2020-09-11 08:00] LABS: Platelet Count (auto) 751 10^3/uL (140-450)
[2020-09-11 08:02] LABS: Band Neutrophils % (manual) 0; Basophils % (manual) 0 (0.0-2.0); Blast Cells 0; Eosinophils % (manual) 0 (0-7); Myelocytes % 0; Promyelocytes % 0; Reactive Lymphocytes 0
[2020-09-11 08:30] LABS: Lymphocytes % (manual) 5 (10.0-50.0); Metamyelocytes % 1; Monocytes % (manual) 4 (0-12)
[2020-09-11] MEDS ORDERED: FLUCONAZOLE 200MG/100ML 100 ML IV SCH (10:00)
[2020-09-11] MEDS: PANTOPRAZOLE 40 MG/10 ML VIAL INJ IV SCH (10:00)
[2020-09-11] MEDS: FLUCONAZOLE 200MG/100ML 100 ML IV SCH (10:00)
[2020-09-11] MEDS: ENOXAPARIN SOD 80 MG/0.8ML SYRINGE SC SCH (10:00)
[2020-09-11 14:00] VITALS: BP 133/95
[2020-09-11] MEDS: SOD CHL 0.45% 1,000 ML IV SCH ×2 (14:22→23:56)
[2020-09-11] MEDS: CHOLECALCIFEROL (VITD3) 2,000 UNIT CAP/TAB PO SCH (15:19)
[2020-09-11] MEDS: ASPirin-EC 81 mg tab PO SCH (15:20)
[2020-09-11] MEDS: CARVEDILOL 12.5 MG TAB PO SCH ×2 (15:20→21:36)
[2020-09-11] MEDS: ASCORBIC ACID 1,000 MG TAB PO SCH (15:20)
[2020-09-11] MEDS: ZINC SULFATE 220mg CAP or TAB PO SCH (15:21)
[2020-09-11 17:00] VITALS: BP 122/91
[2020-09-11] MEDS: ATORVASTATIN 20 MG TAB PO SCH (21:36)
[2020-09-11 21:40] VITALS: BP 143/85
[2020-09-11] MEDS: INSULIN LANTUS (GLARGINE) 1 /0.01ml (100units/ml) SC SCH (21:55)
[2020-09-12] MEDS: InsuLIN REG 1unit/0.01ml Soln (100units/ml) SC SCH ×4 (00:01→17:14)
[2020-09-12 05:11] VITALS: BP 136/85
[2020-09-12] MEDS: ACCU-CHEK COMFORT CURVE STRIP VI SCH ×3 (05:50→17:14)
[2020-09-12 06:41] LABS: INR 1.18 (0.9-1.15)
[2020-09-12 06:44] LABS: Hemoglobin 10.9 g/dL (13.5-17.5)
[2020-09-12 06:48] LABS: Hematocrit 34.4 % (41.0-53.0); Mean Corpuscular Hemoglobin 28.3 pg (28.0-32.0); Mean Corpuscular Hgb Conc. 31.7 g/dL (32.0-36.0); Mean Corpuscular Volume 89.3 fL (80.0-100.0); Platelet Count (auto) 605 10^3/uL (140-450); Red Blood Cells 3.86 10^6/uL (4.5-5.90); Red Cell Distribution Width 15.7 % (11.8-14.3); White Blood Cell 13.5 10^3/uL (4.4-10.8)
[2020-09-12 06:54] LABS: Potassium 3.3 mmol/L (3.5-5.1)
[2020-09-12 07:07] LABS: Albumin 1.8 g/dL (3.4-5.0); BUN/Creatinine Ratio 37.7; Bilirubin, Total 0.3 mg/dL (0.2-1.0); Calcium 8.4 mg/dL (8.5-10.1); Magnesium 3.1 mg/dL (1.6-2.6); Total Protein 6.2 g/dL (6.4-8.2)
[2020-09-12 07:31] LABS: Basophils % (manual) 0 (0.0-2.0); Blast Cells 0; Metamyelocytes % 0; Promyelocytes % 0; Reactive Lymphocytes 0
[2020-09-12 07:59] VITALS: BP 128/80
[2020-09-12] MEDS: POTASSIUM CHL 20MEQ/100ML 100 ML IV SCH ×2 (11:04→17:12)
[2020-09-12] MEDS: PANTOPRAZOLE 40 MG/10 ML VIAL INJ IV SCH (11:04)
[2020-09-12] MEDS: FLUCONAZOLE 200MG/100ML 100 ML IV SCH (11:04)
[2020-09-12] MEDS: ZINC SULFATE 220mg CAP or TAB PO SCH (11:04)
[2020-09-12] MEDS: ASPirin-EC 81 mg tab PO SCH (11:05)
[2020-09-12] MEDS: ASCORBIC ACID 1,000 MG TAB PO SCH (11:05)
[2020-09-12] MEDS: CARVEDILOL 12.5 MG TAB PO SCH ×2 (11:05→22:00)
[2020-09-12] MEDS: ENOXAPARIN SOD 80 MG/0.8ML SYRINGE SC SCH (11:06)
[2020-09-12] MEDS: CHOLECALCIFEROL (VITD3) 2,000 UNIT CAP/TAB PO SCH (11:06)
[2020-09-12 12:15] LABS: Band Neutrophils % (manual) 2; Eosinophils % (manual) 1 (0-7); Lymphocytes % (manual) 13 (10.0-50.0); Monocytes % (manual) 4 (0-12); Myelocytes % 2
[2020-09-12 12:38] VITALS: BP 145/89
[2020-09-12 17:00] VITALS: BP 142/80
[2020-09-12] MEDS ORDERED: POTASSIUM CHL 20MEQ/100ML 100 ML IV ONE (17:12)
[2020-09-12] MEDS: SOD CHL 0.45% 1,000 ML IV SCH ×2 (17:13→17:15)
[2020-09-12] MEDS ORDERED: Ensure Enlive Chocolate 8oz Bottle NG SCH (18:00)
[2020-09-12] MEDS: INSULIN LANTUS (GLARGINE) 1 /0.01ml (100units/ml) SC SCH (21:53)
[2020-09-12] MEDS: ENSURE CLEAR Apple 8oz Carton NG SCH (21:54)
[2020-09-12] MEDS: ATORVASTATIN 20 MG TAB PO SCH (21:54)
[2020-09-12 22:00] VITALS: BP 121/78
[2020-09-12] MEDS ORDERED: ENSURE CLEAR Apple 8oz Carton PO SCH (22:00)
[2020-09-13] MEDS: ACCU-CHEK COMFORT CURVE STRIP VI SCH ×4 (00:54→18:00)
[2020-09-13] MEDS: SOD CHL 0.45% 1,000 ML IV SCH ×3 (02:45→15:00)
[2020-09-13] MEDS: InsuLIN REG 1unit/0.01ml Soln (100units/ml) SC SCH ×4 (05:42→18:00)
[2020-09-13 05:56] VITALS: BP 155/97
[2020-09-13] MEDS: ENSURE CLEAR Apple 8oz Carton NG SCH ×4 (06:00→21:26)
[2020-09-13 06:45] LABS: Calcium 7.9 mg/dL (8.5-10.1); Potassium 3.9 mmol/L (3.5-5.1)
[2020-09-13 06:47] LABS: BUN/Creatinine Ratio 38.6
[2020-09-13 07:14] LABS: Basophils # (auto) 0 10 ^3/uL (0-0.2); Eosinophils # (auto) 0.2 10 ^3/uL (0-0.8); Eosinophils % (auto) 1.9 % (0.0-7.0); Hemoglobin 10.9 g/dL (13.5-17.5); Nucleated Red Blood Cells % 0.9 %; Red Cell Distribution Width 15.6 % (11.8-14.3)
[2020-09-13 07:15] LABS: Basophils % (auto) 0.2 % (0.0-2.0); Hematocrit 34.1 % (41.0-53.0); Lymphocytes # (auto) 2.2 10 ^3/uL (0.4-5.4); Lymphocytes % (auto) 17.8 % (10.0-50.0); Mean Corpuscular Hemoglobin 28.8 pg (28.0-32.0); Mean Corpuscular Hgb Conc. 31.9 g/dL (32.0-36.0); Mean Corpuscular Volume 90.3 fL (80.0-100.0); Monocytes # (auto) 0.4 10 ^3/uL (0-1.3); Monocytes % (auto) 3.1 % (0.0-12.0); Neutrophils # (auto) 9.7 10 ^3/uL (1.6-8.6); Platelet Count (auto) 543 10^3/uL (140-450); Red Blood Cells 3.77 10^6/uL (4.5-5.90); White Blood Cell 12.6 10^3/uL (4.4-10.8)
[2020-09-13 08:49] VITALS: BP 154/87
[2020-09-13] MEDS: ZINC SULFATE 220mg CAP or TAB PO SCH (10:00)
[2020-09-13] MEDS: ASPirin-EC 81 mg tab PO SCH (10:00)
[2020-09-13] MEDS: DOPamine 1600MCG/ML D5W 250 ML IV SCH ×2 (10:00→21:31)
[2020-09-13] MEDS: FLUCONAZOLE 200MG/100ML 100 ML IV SCH (12:27)
[2020-09-13] MEDS: CHOLECALCIFEROL (VITD3) 2,000 UNIT CAP/TAB PO SCH (12:29)
[2020-09-13] MEDS: ASCORBIC ACID 1,000 MG TAB PO SCH (12:30)
[2020-09-13] MEDS: CARVEDILOL 12.5 MG TAB PO SCH ×2 (12:31→22:00)
[2020-09-13] MEDS: ENOXAPARIN SOD 80 MG/0.8ML SYRINGE SC SCH (12:32)
[2020-09-13] MEDS: PANTOPRAZOLE 40 MG/10 ML VIAL INJ IV SCH (12:34)
[2020-09-13 13:00] VITALS: BP 154/95
[2020-09-13 16:40] VITALS: BP 126/75
[2020-09-13] MEDS: FREE WATER GT SCH ×2 (18:00→21:26)
[2020-09-13] MEDS: INSULIN LANTUS (GLARGINE) 1 /0.01ml (100units/ml) SC SCH (21:40)
[2020-09-13 22:00] VITALS: BP 139/79
[2020-09-13] MEDS: ATORVASTATIN 20 MG TAB PO SCH (22:00)
[2020-09-14] MEDS: InsuLIN REG 1unit/0.01ml Soln (100units/ml) SC SCH ×5 (00:23→23:22)
[2020-09-14] MEDS: ACCU-CHEK COMFORT CURVE STRIP VI SCH ×5 (00:26→22:00)
[2020-09-14] MEDS: FREE WATER GT SCH ×6 (02:00→23:20)
[2020-09-14] MEDS: SOD CHL 0.45% 1,000 ML IV SCH ×2 (03:30→16:00)
[2020-09-14] MEDS: ENSURE CLEAR Apple 8oz Carton NG SCH ×3 (06:00→22:00)
[2020-09-14 06:23] LABS: Calcium 8.1 mg/dL (8.5-10.1); Potassium 3.2 mmol/L (3.5-5.1)
[2020-09-14 06:27] LABS: BUN/Creatinine Ratio 38.8
[2020-09-14] MEDS: POTASSIUM CHL 20MEQ/100ML 100 ML IV SCH ×2 (08:15→10:15)
[2020-09-14 09:34] VITALS: BP 137/74
[2020-09-14] MEDS: ZINC SULFATE 220mg CAP or TAB PO SCH (10:00)
[2020-09-14] MEDS: ENOXAPARIN SOD 80 MG/0.8ML SYRINGE SC SCH (10:00)
[2020-09-14] MEDS: FLUCONAZOLE 200MG/100ML 100 ML IV SCH (10:00)
[2020-09-14] MEDS: CARVEDILOL 12.5 MG TAB PO SCH ×2 (10:00→23:20)
[2020-09-14] MEDS: CHOLECALCIFEROL (VITD3) 2,000 UNIT CAP/TAB PO SCH (10:00)
[2020-09-14] MEDS: ASCORBIC ACID 1,000 MG TAB PO SCH (10:00)
[2020-09-14] MEDS: PANTOPRAZOLE 40 MG/10 ML VIAL INJ IV SCH (11:00)
[2020-09-14 13:00] VITALS: BP 109/65
[2020-09-14 22:00] VITALS: BP 135/84
[2020-09-14] MEDS: ATORVASTATIN 20 MG TAB PO SCH (23:20)
[2020-09-14] MEDS: INSULIN LANTUS (GLARGINE) 1 /0.01ml (100units/ml) SC SCH (23:21)
[2020-09-15] MEDS: FREE WATER GT SCH ×6 (02:27→22:19)
[2020-09-15] MEDS: SODIUM CHLORIDE 0.9% 1,000 ML IV SCH ×2 (02:59→22:45)
[2020-09-15] MEDS: ACCU-CHEK COMFORT CURVE STRIP VI SCH ×3 (06:00→18:00)
[2020-09-15 06:51] LABS: BUN/Creatinine Ratio 33.3; Calcium 7.6 mg/dL (8.5-10.1); Potassium 3.7 mmol/L (3.5-5.1)
[2020-09-15] MEDS: InsuLIN REG 1unit/0.01ml Soln (100units/ml) SC SCH ×3 (06:51→18:00)
[2020-09-15] MEDS: PANTOPRAZOLE 40 MG/10 ML VIAL INJ IV SCH (08:19)
[2020-09-15] MEDS: ENOXAPARIN SOD 80 MG/0.8ML SYRINGE SC SCH ×2 (08:19→22:19)
[2020-09-15] MEDS: CHOLECALCIFEROL (VITD3) 2,000 UNIT CAP/TAB PO SCH (08:19)
[2020-09-15] MEDS: ASCORBIC ACID 1,000 MG TAB PO SCH (08:19)
[2020-09-15] MEDS: FLUCONAZOLE 200MG/100ML 100 ML IV SCH (08:20)
[2020-09-15] MEDS: ENSURE CLEAR Apple 8oz Carton NG SCH ×4 (08:21→22:19)
[2020-09-15] MEDS: ZINC SULFATE 220mg CAP or TAB PO SCH (08:44)
[2020-09-15] MEDS: CARVEDILOL 12.5 MG TAB PO SCH ×2 (08:47→23:10)
[2020-09-15 09:00] VITALS: BP 104/64
[2020-09-15] MEDS: DOPamine 1600MCG/ML D5W 250 ML IV SCH (11:43)
[2020-09-15 16:00] VITALS: BP 116/62
[2020-09-15] MEDS: ATORVASTATIN 20 MG TAB PO SCH (22:19)
[2020-09-15] MEDS: INSULIN LANTUS (GLARGINE) 1 /0.01ml (100units/ml) SC SCH (22:20)
[2020-09-16 00:21] VITALS: BP 117/75
[2020-09-16] MEDS: ACCU-CHEK COMFORT CURVE STRIP VI SCH ×4 (00:23→18:32)
[2020-09-16] MEDS: InsuLIN REG 1unit/0.01ml Soln (100units/ml) SC SCH ×4 (00:27→18:31)
[2020-09-16] MEDS: SODIUM CHLORIDE 0.9% 1,000 ML IV SCH ×2 (00:40→18:45)
[2020-09-16] MEDS: FREE WATER GT SCH ×6 (02:19→22:00)
[2020-09-16] MEDS: ENSURE CLEAR Apple 8oz Carton NG SCH ×4 (06:15→22:00)
[2020-09-16 07:49] VITALS: BP 116/63
[2020-09-16] MEDS: FLUCONAZOLE 200MG/100ML 100 ML IV SCH (12:36)
[2020-09-16] MEDS: PANTOPRAZOLE 40 MG/10 ML VIAL INJ IV SCH (12:36)
[2020-09-16] MEDS: ENOXAPARIN SOD 80 MG/0.8ML SYRINGE SC SCH ×2 (12:36→22:00)
[2020-09-16] MEDS: ZINC SULFATE 220mg CAP or TAB PO SCH (12:37)
[2020-09-16] MEDS: CARVEDILOL 12.5 MG TAB PO SCH ×2 (12:39→22:00)
[2020-09-16] MEDS: DOPamine 1600MCG/ML D5W 250 ML IV SCH (12:40)
[2020-09-16] MEDS: ASCORBIC ACID 1,000 MG TAB PO SCH (12:40)
[2020-09-16] MEDS: CHOLECALCIFEROL (VITD3) 2,000 UNIT CAP/TAB PO SCH (12:42)
[2020-09-16 15:51] VITALS: BP 92/54
[2020-09-16] MEDS: INSULIN LANTUS (GLARGINE) 1 /0.01ml (100units/ml) SC SCH (22:00)
[2020-09-16] MEDS: ATORVASTATIN 20 MG TAB PO SCH (22:00)
[2020-09-17] VITALS: BP 118/51
[2020-09-17] MEDS: ACCU-CHEK COMFORT CURVE STRIP VI SCH ×4 (00:04→18:00)
[2020-09-17] MEDS: DOPamine 1600MCG/ML D5W 250 ML IV SCH ×2 (00:53→11:43)
[2020-09-17] MEDS: FREE WATER GT SCH ×6 (02:12→22:00)
[2020-09-17] MEDS: InsuLIN REG 1unit/0.01ml Soln (100units/ml) SC SCH ×4 (05:56→18:00)
[2020-09-17] MEDS: ENSURE CLEAR Apple 8oz Carton NG SCH ×4 (06:00→22:00)
[2020-09-17] MEDS ORDERED: SODIUM CHLORIDE 0.9% 1,000 ML IV SCH ×3 (06:00→18:15)
[2020-09-17 06:11] LABS: Basophils # (auto) 0.1 10 ^3/uL (0-0.2); Basophils % (auto) 1.1 % (0.0-2.0); Eosinophils # (auto) 0.3 10 ^3/uL (0-0.8); Eosinophils % (auto) 4.1 % (0.0-7.0); Hemoglobin 8.6 g/dL (13.5-17.5); Lymphocytes # (auto) 1.2 10 ^3/uL (0.4-5.4); Lymphocytes % (auto) 14.5 % (10.0-50.0); Mean Corpuscular Hgb Conc. 33.1 g/dL (32.0-36.0); Mean Corpuscular Volume 90.7 fL (80.0-100.0); Monocytes # (auto) 0.3 10 ^3/uL (0-1.3); Monocytes % (auto) 3.8 % (0.0-12.0); Neutrophils # (auto) 6.5 10 ^3/uL (1.6-8.6); Neutrophils % (auto) 76.5 % (37.0-80.0); Platelet Count (auto) 180 10^3/uL (140-450); Red Blood Cells 2.87 10^6/uL (4.5-5.90); Red Cell Distribution Width 15.9 % (11.8-14.3); White Blood Cell 8.5 10^3/uL (4.4-10.8)
[2020-09-17 06:43] LABS: Potassium 3.2 mmol/L (3.5-5.1)
[2020-09-17 07:45] LABS: Albumin 1.7 g/dL (3.4-5.0); BUN/Creatinine Ratio 21.9; Bilirubin, Total 0.3 mg/dL (0.2-1.0); Calcium 7.3 mg/dL (8.5-10.1); Magnesium 1.5 mg/dL (1.6-2.6); Total Protein 4.6 g/dL (6.4-8.2)
[2020-09-17 08:00] VITALS: BP 111/60
[2020-09-17] MEDS: ENOXAPARIN SOD 80 MG/0.8ML SYRINGE SC SCH (10:00)
[2020-09-17] MEDS: ASCORBIC ACID 1,000 MG TAB PO SCH (11:36)
[2020-09-17] MEDS: ZINC SULFATE 220mg CAP or TAB PO SCH (11:36)
[2020-09-17] MEDS: CARVEDILOL 12.5 MG TAB PO SCH ×2 (11:39→22:00)
[2020-09-17] MEDS: PANTOPRAZOLE 40 MG/10 ML VIAL INJ IV SCH (11:43)
[2020-09-17] MEDS: CHOLECALCIFEROL (VITD3) 2,000 UNIT CAP/TAB PO SCH (11:44)
[2020-09-17] MEDS ORDERED: MAGNESIUM SULFATE 1GM/100ML 100 ML IV ONE (15:15)
[2020-09-17] MEDS ORDERED: SODIUM CHLORIDE 0.9% 500 ML IV ONE (16:15)
[2020-09-17 16:52] LABS: Basophils # (auto) 0.1 10 ^3/uL (0-0.2); Monocytes # (auto) 0.3 10 ^3/uL (0-1.3); Neutrophils # (auto) 5.3 10 ^3/uL (1.6-8.6)
[2020-09-17 16:54] LABS: Eosinophils # (auto) 0.2 10 ^3/uL (0-0.8); Eosinophils % (auto) 3.2 % (0.0-7.0); Hematocrit 20.2 % (41.0-53.0); Lymphocytes % (auto) 14.6 % (10.0-50.0); Mean Corpuscular Hgb Conc. 32.9 g/dL (32.0-36.0); Mean Corpuscular Volume 91.2 fL (80.0-100.0); Monocytes % (auto) 4.1 % (0.0-12.0); Neutrophils % (auto) 77.1 % (37.0-80.0); Nucleated Red Blood Cells % 0.6 %; Platelet Count (auto) 136 10^3/uL (140-450); Red Blood Cells 2.22 10^6/uL (4.5-5.90); Red Cell Distribution Width 16.2 % (11.8-14.3); White Blood Cell 6.8 10^3/uL (4.4-10.8)
[2020-09-17] MEDS ORDERED: POTASSIUM CHL 20 Meq TABLET PO ONE (17:15)
[2020-09-17 17:37] LABS: Hemoglobin 6.6 g/dL (13.5-17.5)
[2020-09-17] MEDS ORDERED: POTASSIUM CHLORIDE 40 MEQ, LIDOCAINE 1% (LOCAL ANESTH.) 4 ML in SODIUM CHL 0.9% 250 ML IV ONE (17:45)
[2020-09-17] MEDS: PANTOPRAZOLE 40mg/50ML NS AE 50 ML IV SCH ×2 (18:02→23:35)
[2020-09-17] MEDS: SODIUM CHLORIDE 0.9% 1,000 ML IV SCH (18:03)
[2020-09-17] MEDS: MAGNESIUM SULFATE 1GM/100ML 100 ML IV SCH ×4 (19:00→23:34)
[2020-09-17] MEDS: ATORVASTATIN 20 MG TAB PO SCH (22:00)
[2020-09-17] MEDS ORDERED: PANTOPRAZOLE 40 MG/10 ML VIAL INJ IV SCH (22:00)
[2020-09-17] MEDS: INSULIN LANTUS (GLARGINE) 1 /0.01ml (100units/ml) SC SCH (22:00)
[2020-09-18] VITALS (8 sets, daily range): BP systolic 96–121; BP diastolic 50–65
[2020-09-18] MEDS: ACCU-CHEK COMFORT CURVE STRIP VI SCH ×4 (00:03→22:14)
[2020-09-18] MEDS: SODIUM CHLORIDE 0.9% 1,000 ML IV SCH ×2 (00:58→08:57)
[2020-09-18] MEDS: FREE WATER GT SCH ×3 (02:00→10:00)
[2020-09-18] MEDS: PANTOPRAZOLE 40mg/50ML NS AE 50 ML IV SCH ×5 (04:40→23:33)
[2020-09-18] MEDS: ENSURE CLEAR Apple 8oz Carton NG SCH ×5 (05:49→22:00)
[2020-09-18] MEDS: InsuLIN REG 1unit/0.01ml Soln (100units/ml) SC SCH ×4 (05:50→22:00)
[2020-09-18] MEDS: ASCORBIC ACID 1,000 MG TAB PO SCH (10:00)
[2020-09-18] MEDS: CHOLECALCIFEROL (VITD3) 2,000 UNIT CAP/TAB PO SCH (10:00)
[2020-09-18] MEDS: ZINC SULFATE 220mg CAP or TAB PO SCH (10:00)
[2020-09-18] MEDS ORDERED: POTASSIUM CHL 20 Meq TABLET PO SCH (10:00)
[2020-09-18] MEDS: CARVEDILOL 12.5 MG TAB PO SCH (10:00)
[2020-09-18 12:08] LABS: BUN/Creatinine Ratio 15.9; Calcium 7.4 mg/dL (8.5-10.1); Magnesium 2.6 mg/dL (1.6-2.6); Potassium 3.5 mmol/L (3.5-5.1)
[2020-09-18 12:09] LABS: Hematocrit 33.8 % (41.0-53.0); Hemoglobin 11.2 g/dL (13.5-17.5)
[2020-09-18] MEDS: DOPamine 1600MCG/ML D5W 250 ML IV SCH (13:19)
[2020-09-18 14:31] LABS: Basophils # (auto) 0 10 ^3/uL (0-0.2); Basophils % (auto) 0.9 % (0.0-2.0); Eosinophils # (auto) 0.2 10 ^3/uL (0-0.8); Eosinophils % (auto) 3.8 % (0.0-7.0); Hematocrit 31.7 % (41.0-53.0); Hemoglobin 10.6 g/dL (13.5-17.5); Lymphocytes # (auto) 0.6 10 ^3/uL (0.4-5.4); Lymphocytes % (auto) 10.9 % (10.0-50.0); Mean Corpuscular Hemoglobin 29.8 pg (28.0-32.0); Mean Corpuscular Hgb Conc. 33.3 g/dL (32.0-36.0); Mean Corpuscular Volume 89.4 fL (80.0-100.0); Monocytes # (auto) 0.3 10 ^3/uL (0-1.3); Monocytes % (auto) 5.2 % (0.0-12.0); Neutrophils # (auto) 4.3 10 ^3/uL (1.6-8.6); Neutrophils % (auto) 79.2 % (37.0-80.0); Nucleated Red Blood Cells % 0.7 %; Platelet Count (auto) 106 10^3/uL (140-450); Red Blood Cells 3.55 10^6/uL (4.5-5.90); Red Cell Distribution Width 15.7 % (11.8-14.3); White Blood Cell 5.4 10^3/uL (4.4-10.8)
[2020-09-18] MEDS ORDERED: DEXTROSE (50%) 50ML SYRG IV PRN (17:15)
[2020-09-18] MEDS ORDERED: SODIUM CHLORIDE 0.9% 1,000 ML IV SCH (17:15)
[2020-09-18] MEDS: PIPERACILLIN-TAZOB 3.375GM 100 ML IV SCH ×2 (18:44→23:54)
[2020-09-18] MEDS: ERGOCALCIFEROL 50,000 UNIT(1.25MG) CAP PO SCH (18:44)
[2020-09-18] MEDS: ATORVASTATIN 20 MG TAB PO SCH (22:00)
[2020-09-18] MEDS ORDERED: CLINIMIX PER PHARMACY 0 ML IV SCH ×2 (22:45→23:30)
[2020-09-18] MEDS: D5W/SOD CHL 0.45% 1,000 ML IV SCH (22:49)
[2020-09-19] VITALS (31 sets, daily range): BP systolic 45–128; BP diastolic 22–72
[2020-09-19] MEDS: PANTOPRAZOLE 40mg/50ML NS AE 50 ML IV SCH ×4 (04:40→18:45)
[2020-09-19] MEDS: PIPERACILLIN-TAZOB 3.375GM 100 ML IV SCH ×3 (05:40→18:00)
[2020-09-19] MEDS: ENSURE CLEAR Apple 8oz Carton NG SCH ×4 (05:40→22:00)
[2020-09-19] MEDS: ACCU-CHEK COMFORT CURVE STRIP VI SCH ×3 (06:37→18:00)
[2020-09-19] MEDS: InsuLIN REG 1unit/0.01ml Soln (100units/ml) SC SCH ×3 (06:37→18:00)
[2020-09-19] MEDS ORDERED: CLINIMIX PER PHARMACY 0 ML IV SCH (06:45)
[2020-09-19] MEDS: ZINC SULFATE 220mg CAP or TAB PO SCH (09:19)
[2020-09-19] MEDS: CHOLECALCIFEROL (VITD3) 2,000 UNIT CAP/TAB PO SCH (09:20)
[2020-09-19] MEDS: ASCORBIC ACID 1,000 MG TAB PO SCH (09:20)
[2020-09-19 10:41] LABS: Basophils # (auto) 0 10 ^3/uL (0-0.2); Basophils % (auto) 0.7 % (0.0-2.0); Eosinophils # (auto) 0.2 10 ^3/uL (0-0.8); Eosinophils % (auto) 6.3 % (0.0-7.0); Hematocrit 31.7 % (41.0-53.0); Hemoglobin 10.5 g/dL (13.5-17.5); Lymphocytes # (auto) 0.3 10 ^3/uL (0.4-5.4); Lymphocytes % (auto) 7.8 % (10.0-50.0); Mean Corpuscular Hemoglobin 30.1 pg (28.0-32.0); Mean Corpuscular Hgb Conc. 33.1 g/dL (32.0-36.0); Mean Corpuscular Volume 90.9 fL (80.0-100.0); Monocytes # (auto) 0.2 10 ^3/uL (0-1.3); Monocytes % (auto) 5.1 % (0.0-12.0); Neutrophils # (auto) 2.9 10 ^3/uL (1.6-8.6); Neutrophils % (auto) 80.1 % (37.0-80.0); Nucleated Red Blood Cells % 1.9 %; Platelet Count (auto) 62 10^3/uL (140-450); Red Blood Cells 3.49 10^6/uL (4.5-5.90); Red Cell Distribution Width 16.6 % (11.8-14.3); White Blood Cell 3.7 10^3/uL (4.4-10.8)
[2020-09-19 11:01] LABS: Phosphorus 4.4 mg/dL (2.5-4.90)
[2020-09-19 11:05] LABS: Pre Albumin 18.9 mg/dL (20.0-40.0)
[2020-09-19 11:08] LABS: Albumin 1.4 g/dL (3.4-5.0); Calcium 7.1 mg/dL (8.5-10.1); Magnesium 2.1 mg/dL (1.6-2.6); Potassium 3.7 mmol/L (3.5-5.1)
[2020-09-19 11:12] LABS: BUN/Creatinine Ratio 11.3; Bilirubin, Total 0.4 mg/dL (0.2-1.0); Total Protein 4.2 g/dL (6.4-8.2)
[2020-09-19] MEDS: D5W/SOD CHL 0.45% 1,000 ML IV SCH (13:39)
[2020-09-19] MEDS ORDERED: NOREPINEPHRINE 8 MG/250ML KIT 250 ML IV SCH (15:00)
[2020-09-19] MEDS: MIDAZOLAM DRIP 50 mg/50mL 50 ML IV SCH (15:00)
[2020-09-19] MEDS ORDERED: DOPamine 1600MCG/ML D5W 250 ML IV ONE (15:19)
[2020-09-19] MEDS ORDERED: DOPamine 1600MCG/ML D5W 250 ML IV SCH (15:30)
[2020-09-19] MEDS ORDERED: MIDAZOLAM DRIP 50 mg/50mL 50 ML IV ONE (18:52)
[2020-09-19] MEDS: AMINO ACID INFUSION IN D10W 1,000 ML IV NR (20:00)
[2020-09-20] VITALS (76 sets, daily range): BP systolic 75–141; BP diastolic 30–67
[2020-09-20] MEDS: D5W/SOD CHL 0.45% 1,000 ML IV SCH (01:25)
[2020-09-20] MEDS: fentaNYL Drip 2500mCg/250mlNS 250 ML IV SCH (02:15)
[2020-09-20] MEDS: PHENYLEPHRINE IV 250 ML IV SCH ×3 (02:15→17:45)
[2020-09-20] MEDS: ATORVASTATIN 20 MG TAB PO SCH ×2 (02:40→22:00)
[2020-09-20] MEDS: PIPERACILLIN-TAZOB 3.375GM 100 ML IV SCH ×4 (02:41→22:00)
[2020-09-20] MEDS: PANTOPRAZOLE 40mg/50ML NS AE 50 ML IV SCH ×3 (02:41→09:40)
[2020-09-20] MEDS: ACCU-CHEK COMFORT CURVE STRIP VI SCH ×4 (02:41→18:18)
[2020-09-20] MEDS: InsuLIN REG 1unit/0.01ml Soln (100units/ml) SC SCH ×4 (02:44→18:27)
[2020-09-20 05:19] LABS: Hematocrit 37.6 % (41.0-53.0); Hemoglobin 11.7 g/dL (13.5-17.5); Mean Corpuscular Hemoglobin 29.8 pg (28.0-32.0); Mean Corpuscular Hgb Conc. 31.2 g/dL (32.0-36.0); Mean Corpuscular Volume 95.6 fL (80.0-100.0); Platelet Count (auto) 70 10^3/uL (140-450); Red Blood Cells 3.93 10^6/uL (4.5-5.90); Red Cell Distribution Width 17.7 % (11.8-14.3); White Blood Cell 3.8 10^3/uL (4.4-10.8)
[2020-09-20 05:42] LABS: INR 1.38 (0.9-1.15)
[2020-09-20] MEDS: ENSURE CLEAR Apple 8oz Carton NG SCH ×4 (05:47→22:00)
[2020-09-20 06:02] LABS: Basophils % (manual) 0 (0.0-2.0); Blast Cells 0; Reactive Lymphocytes 0
[2020-09-20 08:12] LABS: Band Neutrophils % (manual) 30; Eosinophils % (manual) 7 (0-7); Lymphocytes % (manual) 11 (10.0-50.0); Metamyelocytes % 15; Monocytes % (manual) 5 (0-12); Myelocytes % 3; Promyelocytes % 2
[2020-09-20] MEDS: NOREPINEPHRINE BITARTRATE 16 MG in SODIUM CHL 0.9% 250 ML IV SCH (09:00)
[2020-09-20] MEDS: DOPamine 3200MCG/ML 250 ML IV SCH (09:00)
[2020-09-20] MEDS: CHOLECALCIFEROL (VITD3) 2,000 UNIT CAP/TAB PO SCH (10:00)
[2020-09-20] MEDS: ASCORBIC ACID 1,000 MG TAB PO SCH (10:00)
[2020-09-20] MEDS: ZINC SULFATE 220mg CAP or TAB PO SCH (10:00)
[2020-09-20 10:03] LABS: Albumin 1.2 g/dL (3.4-5.0); Calcium 6.7 mg/dL (8.5-10.1); Magnesium 1.9 mg/dL (1.6-2.6); Potassium 4.2 mmol/L (3.5-5.1)
[2020-09-20 10:06] LABS: BUN/Creatinine Ratio 8.6; Bilirubin, Total 0.3 mg/dL (0.2-1.0); Total Protein 4.3 g/dL (6.4-8.2)
[2020-09-20] MEDS ORDERED: SODIUM BICARBONATE 8.4 % INJ 50ML VIAL IV ONE ×2 (11:45→23:30)
[2020-09-20] MEDS ORDERED: SODIUM CHLORIDE 0.9% 1,000 ML IV SCH (12:00)
[2020-09-20] MEDS: MIDAZOLAM DRIP 50 mg/50mL 50 ML IV SCH (15:00)
[2020-09-20 16:45] LABS: INR 1.33 (0.9-1.15); Partial Thromboplastin Time 45.1 sec (23.0-31.2)
[2020-09-20] MEDS: AMINO ACID INFUSION IN D10W 1,000 ML IV NR ×2 (19:49→20:00)
[2020-09-20] MEDS: PANTOPRAZOLE 40 MG/10 ML VIAL INJ IV SCH (22:00)
[2020-09-20] MEDS ORDERED: SODIUM BICARBONATE 8.4% INJ 50ML SYRINGE ONE (23:39)
[2020-09-21] VITALS (81 sets, daily range): BP systolic 96–178; BP diastolic 46–79
[2020-09-21] MEDS: InsuLIN REG 1unit/0.01ml Soln (100units/ml) SC SCH ×4 (00:40→16:54)
[2020-09-21] MEDS: SODIUM BICARBONATE 50ML VIAL 100 ML in SOD CHL 0.45% 1,000 ML IV SCH ×2 (00:50→14:45)
[2020-09-21] MEDS: fentaNYL Drip 2500mCg/250mlNS 250 ML IV SCH (02:15)
[2020-09-21] MEDS: PHENYLEPHRINE IV 250 ML IV SCH ×3 (03:15→19:55)
[2020-09-21] MEDS: ENSURE CLEAR Apple 8oz Carton NG SCH ×4 (06:00→22:00)
[2020-09-21] MEDS: PIPERACILLIN-TAZOB 3.375GM 100 ML IV SCH ×2 (06:00)
[2020-09-21] MEDS: ACCU-CHEK COMFORT CURVE STRIP VI SCH ×4 (06:00→16:53)
[2020-09-21] MEDS: NOREPINEPHRINE BITARTRATE 16 MG in SODIUM CHL 0.9% 250 ML IV SCH ×2 (08:15→23:27)
[2020-09-21] MEDS: DOPamine 3200MCG/ML 250 ML IV SCH (08:15)
[2020-09-21 09:18] LABS: Albumin 1.1 g/dL (3.4-5.0); BUN/Creatinine Ratio 9.2; Bilirubin, Total 0.2 mg/dL (0.2-1.0); Calcium 6.7 mg/dL (8.5-10.1); Magnesium 1.9 mg/dL (1.6-2.6); Phosphorus 5.1 mg/dL (2.5-4.90); Total Protein 4.1 g/dL (6.4-8.2)
[2020-09-21] MEDS: ZINC SULFATE 220mg CAP or TAB PO SCH (09:37)
[2020-09-21] MEDS: CHOLECALCIFEROL (VITD3) 2,000 UNIT CAP/TAB PO SCH (09:38)
[2020-09-21] MEDS: ASCORBIC ACID 1,000 MG TAB PO SCH (09:38)
[2020-09-21] MEDS: PANTOPRAZOLE 40 MG/10 ML VIAL INJ IV SCH ×2 (10:00→22:00)
[2020-09-21 10:10] LABS: Potassium 3.4 mmol/L (3.5-5.1)
[2020-09-21] MEDS: MIDAZOLAM DRIP 50 mg/50mL 50 ML IV SCH ×2 (12:00→18:42)
[2020-09-21] MEDS ORDERED: MEROPENEM 500MG IVPB 50 ML IV ONE (12:15)
[2020-09-21] MEDS ORDERED: POTASSIUM CHL 20MEQ/100ML 100 ML IV ONE (13:15)
[2020-09-21] MEDS: AMINO ACID INFUSION IN D10W 1,000 ML IV NR ×2 (20:17→20:18)
[2020-09-21] MEDS: ATORVASTATIN 20 MG TAB PO SCH (22:00)
[2020-09-21] MEDS: MEROPENEM 500MG IVPB 50 ML IV SCH (22:00)
[2020-09-21] MEDS: SODIUM CHLOR 0.9% PF (SALINE LOCK) 10ML VIAL/SYR IV SCH (22:00)
[2020-09-22] VITALS (92 sets, daily range): BP systolic 97–146; BP diastolic 45–89
[2020-09-22] MEDS: fentaNYL Drip 2500mCg/250mlNS 250 ML IV SCH (02:15)
[2020-09-22] MEDS: PHENYLEPHRINE IV 250 ML IV SCH (03:50)
[2020-09-22 05:39] LABS: Platelet Count (auto) 48 10^3/uL (140-450)
[2020-09-22 05:40] LABS: Hemoglobin 8.4 g/dL (13.5-17.5); Mean Corpuscular Hemoglobin 29.5 pg (28.0-32.0); Mean Corpuscular Hgb Conc. 33.8 g/dL (32.0-36.0); Mean Corpuscular Volume 87.4 fL (80.0-100.0); Red Blood Cells 2.86 10^6/uL (4.5-5.90); Red Cell Distribution Width 16.9 % (11.8-14.3); White Blood Cell 13.1 10^3/uL (4.4-10.8)
[2020-09-22 05:50] LABS: Basophils % (manual) 0 (0.0-2.0); Blast Cells 0; Metamyelocytes % 0; Myelocytes % 0; Promyelocytes % 0; Reactive Lymphocytes 0
[2020-09-22 05:54] LABS: Calcium 6.7 mg/dL (8.5-10.1)
[2020-09-22 05:58] LABS: BUN/Creatinine Ratio 10.8; Magnesium 1.6 mg/dL (1.6-2.6)
[2020-09-22 05:59] LABS: Lactic Acid w/Reflex 4.1 mmol/L (0.4-2.0)
[2020-09-22 06:00] LABS: Bilirubin, Total 0.3 mg/dL (0.2-1.0); Phosphorus 3.7 mg/dL (2.5-4.90); Total Protein 3.6 g/dL (6.4-8.2)
[2020-09-22] MEDS: ENSURE CLEAR Apple 8oz Carton NG SCH ×4 (06:00→22:00)
[2020-09-22] MEDS: ACCU-CHEK COMFORT CURVE STRIP VI SCH ×4 (06:01→17:10)
[2020-09-22] MEDS: SODIUM BICARBONATE 50ML VIAL 100 ML in SOD CHL 0.45% 1,000 ML IV SCH (06:01)
[2020-09-22] MEDS: InsuLIN REG 1unit/0.01ml Soln (100units/ml) SC SCH ×4 (06:05→17:10)
[2020-09-22 06:59] LABS: Band Neutrophils % (manual) 5; Eosinophils % (manual) 12 (0-7); Lymphocytes % (manual) 7 (10.0-50.0); Monocytes % (manual) 3 (0-12)
[2020-09-22] MEDS: POTASSIUM CHL 20MEQ/100ML 100 ML IV SCH ×2 (07:30→08:49)
[2020-09-22 07:36] LABS: Urine Amorphous Crystal FEW /hpf (None Seen); Urine Bacteria FEW /hpf (None Seen); Urine Blood 3+ /uL (Negative); Urine Mucus FEW (None Seen); Urine Specific Gravity 1.008 (1.001-1.035); Urine Sperm PRESENT /hpf (None Seen); Urine WBC 16 /hpf (0 - 3)
[2020-09-22] MEDS: DOPamine 3200MCG/ML 250 ML IV SCH (07:49)
[2020-09-22] MEDS ORDERED: MAGNESIUM SULFATE 1GM/100ML 100 ML IV ONE (08:30)
[2020-09-22] MEDS: MIDAZOLAM DRIP 50 mg/50mL 50 ML IV SCH ×5 (08:52→22:00)
[2020-09-22] MEDS: MEROPENEM 500MG IVPB 50 ML IV SCH ×2 (10:00→22:31)
[2020-09-22] MEDS: CHOLECALCIFEROL (VITD3) 2,000 UNIT CAP/TAB PO SCH (10:00)
[2020-09-22] MEDS: PANTOPRAZOLE 40 MG/10 ML VIAL INJ IV SCH ×2 (10:00→22:00)
[2020-09-22] MEDS: ZINC SULFATE 220mg CAP or TAB PO SCH (10:00)
[2020-09-22] MEDS: ASCORBIC ACID 1,000 MG TAB PO SCH (10:00)
[2020-09-22] MEDS: SODIUM CHLOR 0.9% PF (SALINE LOCK) 10ML VIAL/SYR IV SCH ×2 (10:00→22:31)
[2020-09-22] MEDS: SODIUM CHLORIDE 0.9% 1,000 ML IV SCH (12:22)
[2020-09-22] MEDS: NOREPINEPHRINE BITARTRATE 16 MG in SODIUM CHL 0.9% 250 ML IV SCH (15:54)
[2020-09-22] MEDS: AMINO ACID INFUSION IN D10W 1,000 ML IV NR ×2 (19:26→20:00)
[2020-09-22] MEDS: ATORVASTATIN 20 MG TAB PO SCH (22:32)
[2020-09-22 23:40] LABS: Urine Bacteria FEW /hpf (None Seen); Urine Blood 2+ /uL (Negative); Urine Specific Gravity 1.006 (1.001-1.035); Urine Sperm PRESENT /hpf (None Seen); Urine WBC 5 /hpf (0 - 3)
[2020-09-23] VITALS (99 sets, daily range): BP systolic 80–131; BP diastolic 44–74
[2020-09-23] MEDS: MIDAZOLAM DRIP 50 mg/50mL 50 ML IV SCH ×7 (01:13→23:00)
[2020-09-23] MEDS: fentaNYL Drip 2500mCg/250mlNS 250 ML IV SCH ×2 (02:15→12:30)
[2020-09-23] MEDS: SODIUM CHLORIDE 0.9% 1,000 ML IV SCH ×2 (03:40→16:36)
[2020-09-23 04:47] LABS: Hemoglobin 8.1 g/dL (13.5-17.5)
[2020-09-23 04:51] LABS: Hematocrit 23.7 % (41.0-53.0); Mean Corpuscular Hemoglobin 29.7 pg (28.0-32.0); Mean Corpuscular Hgb Conc. 34.3 g/dL (32.0-36.0); Mean Corpuscular Volume 86.6 fL (80.0-100.0); Platelet Count (auto) 49 10^3/uL (140-450); Red Blood Cells 2.74 10^6/uL (4.5-5.90); Red Cell Distribution Width 16.5 % (11.8-14.3); White Blood Cell 8.6 10^3/uL (4.4-10.8)
[2020-09-23 04:57] LABS: Basophils % (manual) 0 (0.0-2.0); Blast Cells 0; Myelocytes % 0; Promyelocytes % 0; Reactive Lymphocytes 0
[2020-09-23 05:04] LABS: INR 2.11 (0.9-1.15)
[2020-09-23 05:31] LABS: Band Neutrophils % (manual) 9; Eosinophils % (manual) 8 (0-7); Lymphocytes % (manual) 9 (10.0-50.0); Metamyelocytes % 1; Monocytes % (manual) 3 (0-12)
[2020-09-23 05:42] LABS: BUN/Creatinine Ratio 12.1; Bilirubin, Total 0.3 mg/dL (0.2-1.0); Calcium 6.7 mg/dL (8.5-10.1); Magnesium 1.9 mg/dL (1.6-2.6); Phosphorus 3.1 mg/dL (2.5-4.90); Total Protein 3.8 g/dL (6.4-8.2)
[2020-09-23] MEDS: ENSURE CLEAR Apple 8oz Carton NG SCH ×4 (05:53→22:00)
[2020-09-23] MEDS: ACCU-CHEK COMFORT CURVE STRIP VI SCH ×4 (05:53→18:15)
[2020-09-23 05:57] LABS: Albumin 0.9 g/dL (3.4-5.0)
[2020-09-23] MEDS: InsuLIN REG 1unit/0.01ml Soln (100units/ml) SC SCH ×4 (05:59→18:15)
[2020-09-23] MEDS: POTASSIUM CHL 20MEQ/100ML 100 ML IV SCH ×4 (08:30→16:30)
[2020-09-23] MEDS: PANTOPRAZOLE 40 MG/10 ML VIAL INJ IV SCH ×2 (10:00→22:00)
[2020-09-23] MEDS: ASCORBIC ACID 1,000 MG TAB PO SCH (10:00)
[2020-09-23] MEDS: SODIUM CHLOR 0.9% PF (SALINE LOCK) 10ML VIAL/SYR IV SCH ×2 (10:00→22:18)
[2020-09-23] MEDS: CHOLECALCIFEROL (VITD3) 2,000 UNIT CAP/TAB PO SCH (10:00)
[2020-09-23] MEDS: ZINC SULFATE 220mg CAP or TAB PO SCH (10:00)
[2020-09-23] MEDS: MEROPENEM 500MG IVPB 50 ML IV SCH ×2 (13:30→22:18)
[2020-09-23] MEDS ORDERED: FUROSEMIDE 40 MG/4 ML VIAL IV ONE (17:15)
[2020-09-23] MEDS: ALBUMIN 25% 50 ML IV SCH (18:15)
[2020-09-23] MEDS: AMINO ACID INFUSION IN D10W 1,000 ML IV NR ×2 (19:49→22:18)
[2020-09-23] MEDS: ATORVASTATIN 20 MG TAB PO SCH (22:18)
[2020-09-24] VITALS (99 sets, daily range): BP systolic 71–139; BP diastolic 43–64
[2020-09-24] MEDS: ACCU-CHEK COMFORT CURVE STRIP VI SCH ×4 (01:12→18:15)
[2020-09-24] MEDS: InsuLIN REG 1unit/0.01ml Soln (100units/ml) SC SCH ×4 (01:13→18:15)
[2020-09-24] MEDS: ALBUMIN 25% 50 ML IV SCH ×2 (01:23→09:15)
[2020-09-24] MEDS: MIDAZOLAM DRIP 50 mg/50mL 50 ML IV SCH ×3 (04:00→20:00)
[2020-09-24] MEDS: SODIUM CHLORIDE 0.9% 1,000 ML IV SCH (04:00)
[2020-09-24 04:45] LABS: Basophils # (auto) 0.1 10 ^3/uL (0-0.2); Basophils % (auto) 1.2 % (0.0-2.0); Hemoglobin 8.6 g/dL (13.5-17.5); Lymphocytes # (auto) 1.2 10 ^3/uL (0.4-5.4); Nucleated Red Blood Cells % 0.8 %; Platelet Count (auto) 48 10^3/uL (140-450)
[2020-09-24 04:52] LABS: Eosinophils % (auto) 11.9 % (0.0-7.0); Hematocrit 25.2 % (41.0-53.0); Lymphocytes % (auto) 14.6 % (10.0-50.0); Mean Corpuscular Hemoglobin 29.9 pg (28.0-32.0); Mean Corpuscular Volume 87.8 fL (80.0-100.0); Monocytes # (auto) 0.2 10 ^3/uL (0-1.3); Monocytes % (auto) 2.5 % (0.0-12.0); Neutrophils # (auto) 5.9 10 ^3/uL (1.6-8.6); Neutrophils % (auto) 69.8 % (37.0-80.0); Red Blood Cells 2.87 10^6/uL (4.5-5.90); Red Cell Distribution Width 16.6 % (11.8-14.3); White Blood Cell 8.5 10^3/uL (4.4-10.8)
[2020-09-24 05:03] LABS: Potassium 3.5 mmol/L (3.5-5.1)
[2020-09-24 05:12] LABS: Albumin 1.6 g/dL (3.4-5.0); BUN/Creatinine Ratio 12.6; Bilirubin, Total 0.2 mg/dL (0.2-1.0); Calcium 6.9 mg/dL (8.5-10.1); Magnesium 1.7 mg/dL (1.6-2.6); Phosphorus 3.4 mg/dL (2.5-4.90); Total Protein 4.5 g/dL (6.4-8.2)
[2020-09-24 05:21] LABS: INR 2.53 (0.9-1.15)
[2020-09-24] MEDS: ENSURE CLEAR Apple 8oz Carton NG SCH ×4 (06:00→22:00)
[2020-09-24] MEDS: NOREPINEPHRINE BITARTRATE 16 MG in SODIUM CHL 0.9% 250 ML IV SCH (08:15)
[2020-09-24] MEDS: ZINC SULFATE 220mg CAP or TAB PO SCH (10:00)
[2020-09-24] MEDS: ASCORBIC ACID 1,000 MG TAB PO SCH (10:00)
[2020-09-24] MEDS: MEROPENEM 500MG IVPB 50 ML IV SCH ×2 (10:00→22:00)
[2020-09-24] MEDS: SODIUM CHLOR 0.9% PF (SALINE LOCK) 10ML VIAL/SYR IV SCH ×2 (10:00→22:00)
[2020-09-24] MEDS: PANTOPRAZOLE 40 MG/10 ML VIAL INJ IV SCH ×2 (10:00→22:00)
[2020-09-24] MEDS: CHOLECALCIFEROL (VITD3) 2,000 UNIT CAP/TAB PO SCH (10:00)
[2020-09-24] MEDS ORDERED: MAGNESIUM SULFATE 1GM/100ML 100 ML IV ONE ×2 (10:15→15:00)
[2020-09-24] MEDS ORDERED: POTASSIUM EFFERVESENT TAB 25 MEQ GT ONE (10:15)
[2020-09-24] MEDS ORDERED: FUROSEMIDE 40 MG/4 ML VIAL IV ONE (10:15)
[2020-09-24] MEDS ORDERED: FUROSEMIDE 40 MG/4 ML VIAL ONE (10:17)
[2020-09-24] MEDS ORDERED: SODIUM BICARBONATE 8.4% INJ 50ML SYRINGE ONE (10:17)
[2020-09-24] MEDS ORDERED: SODIUM BICARBONATE 8.4 % INJ 50ML VIAL IV ONE (10:30)
[2020-09-24] MEDS: SODIUM BICARBONATE 50ML VIAL 75 ML in SOD CHL 0.45% 1,000 ML IV SCH (14:30)
[2020-09-24] MEDS: DOPamine 1600MCG/ML D5W 250 ML IV SCH (14:30)
[2020-09-24] MEDS: POTASSIUM CHL 20MEQ/100ML 100 ML IV SCH ×2 (15:00→18:30)
[2020-09-24 16:35] LABS: Creatinine, Urine 32 mg/dL (30.0-125.0); Sodium Urine 62 mmol/L (40-220)
[2020-09-24] MEDS: AMINO ACID INFUSION IN D10W 1,000 ML IV NR (19:49)
[2020-09-24] MEDS ORDERED: AMINO ACID INFUSION IN D10W 1,000 ML IV NR (20:00)
[2020-09-24] MEDS: ATORVASTATIN 20 MG TAB PO SCH (22:00)
[2020-09-25] VITALS (97 sets, daily range): BP systolic 95–154; BP diastolic 48–77
[2020-09-25] MEDS: ACCU-CHEK COMFORT CURVE STRIP VI SCH ×4 (00:08→18:00)
[2020-09-25] MEDS: InsuLIN REG 1unit/0.01ml Soln (100units/ml) SC SCH ×4 (00:09→18:00)
[2020-09-25] MEDS: SODIUM BICARBONATE 50ML VIAL 75 ML in SOD CHL 0.45% 1,000 ML IV SCH (01:22)
[2020-09-25] MEDS: ALBUMIN 25% 100 ML IV SCH ×3 (01:22→15:00)
[2020-09-25] MEDS: MIDAZOLAM DRIP 50 mg/50mL 50 ML IV SCH ×4 (01:23→22:07)
[2020-09-25] MEDS: fentaNYL Drip 2500mCg/250mlNS 250 ML IV SCH ×2 (03:38→22:07)
[2020-09-25] MEDS: SODIUM BICARBONATE 50ML VIAL 150 ML in SOD CHL 0.45% 1,000 ML IV SCH ×2 (04:00→18:50)
[2020-09-25] MEDS ORDERED: SODIUM BICARBONATE 8.4% INJ 50ML SYRINGE ONE (04:02)
[2020-09-25 04:56] LABS: Basophils # (auto) 0.1 10 ^3/uL (0-0.2); Eosinophils # (auto) 0.9 10 ^3/uL (0-0.8); Lymphocytes # (auto) 1.6 10 ^3/uL (0.4-5.4); Monocytes # (auto) 0.6 10 ^3/uL (0-1.3); Monocytes % (auto) 5.5 % (0.0-12.0); Neutrophils # (auto) 7.3 10 ^3/uL (1.6-8.6)
[2020-09-25 04:58] LABS: Eosinophils % (auto) 8.8 % (0.0-7.0); Hematocrit 26.4 % (41.0-53.0); Lymphocytes % (auto) 14.8 % (10.0-50.0); Mean Corpuscular Hgb Conc. 34.2 g/dL (32.0-36.0); Mean Corpuscular Volume 87.7 fL (80.0-100.0); Neutrophils % (auto) 69.9 % (37.0-80.0); Nucleated Red Blood Cells % 0.8 %; Platelet Count (auto) 52 10^3/uL (140-450); Red Blood Cells 3.02 10^6/uL (4.5-5.90); Red Cell Distribution Width 16.5 % (11.8-14.3); White Blood Cell 10.5 10^3/uL (4.4-10.8)
[2020-09-25 05:01] LABS: INR 1.97 (0.9-1.15)
[2020-09-25 05:08] LABS: Lactic Acid w/Reflex 2.3 mmol/L (0.4-2.0)
[2020-09-25 05:09] LABS: Potassium 4.2 mmol/L (3.5-5.1)
[2020-09-25 05:23] LABS: Albumin 2.1 g/dL (3.4-5.0); BUN/Creatinine Ratio 12.2; Bilirubin, Total 0.4 mg/dL (0.2-1.0); CRP High Sensitivity 5.72 mg/dL (< 0.3); Calcium 7.4 mg/dL (8.5-10.1); Magnesium 2.2 mg/dL (1.6-2.6); Phosphorus 3.6 mg/dL (2.5-4.90); Total Protein 5.1 g/dL (6.4-8.2)
[2020-09-25] MEDS: ENSURE CLEAR Apple 8oz Carton NG SCH (06:00)
[2020-09-25] MEDS: NOREPINEPHRINE BITARTRATE 16 MG in SODIUM CHL 0.9% 250 ML IV SCH (08:15)
[2020-09-25] MEDS ORDERED: POTASSIUM EFFERVESENT TAB 25 MEQ GT SCH (10:00)
[2020-09-25] MEDS: SODIUM CHLOR 0.9% PF (SALINE LOCK) 10ML VIAL/SYR IV SCH ×2 (10:22→22:01)
[2020-09-25] MEDS: MEROPENEM 500MG IVPB 50 ML IV SCH ×2 (10:22→22:00)
[2020-09-25] MEDS: ZINC SULFATE 220mg CAP or TAB PO SCH (10:23)
[2020-09-25] MEDS: ASCORBIC ACID 1,000 MG TAB PO SCH (10:23)
[2020-09-25] MEDS: CHOLECALCIFEROL (VITD3) 2,000 UNIT CAP/TAB PO SCH (10:24)
[2020-09-25] MEDS ORDERED: ENOXAPARIN SOD 30 MG/0.3 ML SYRINGE SC ONE (13:00)
[2020-09-25] MEDS ORDERED: PANTOPRAZOLE 40 MG TAB PO ONE (14:15)
[2020-09-25] MEDS: ERGOCALCIFEROL 50,000 UNIT(1.25MG) CAP PO SCH (17:15)
[2020-09-25] MEDS: DOPamine 1600MCG/ML D5W 250 ML IV SCH (18:30)
[2020-09-25] MEDS: FUROSEMIDE 100 MG/10ML VIAL IV SCH (18:33)
[2020-09-25] MEDS: PANTOPRAZOLE 40 MG TAB PO SCH (22:00)
[2020-09-25] MEDS: ATORVASTATIN 20 MG TAB PO SCH (22:01)
[2020-09-26] VITALS (92 sets, daily range): BP systolic 68–146; BP diastolic 38–73
[2020-09-26] MEDS: MIDAZOLAM DRIP 50 mg/50mL 50 ML IV SCH ×2 (03:00→23:04)
[2020-09-26] MEDS: SODIUM BICARBONATE 50ML VIAL 150 ML in SOD CHL 0.45% 1,000 ML IV SCH ×2 (03:20→17:14)
[2020-09-26 05:03] LABS: Basophils # (auto) 0.1 10 ^3/uL (0-0.2); Eosinophils # (auto) 0.9 10 ^3/uL (0-0.8); Lymphocytes # (auto) 1.3 10 ^3/uL (0.4-5.4); Platelet Count (auto) 59 10^3/uL (140-450)
[2020-09-26 05:04] LABS: Basophils % (auto) 1.1 % (0.0-2.0); Eosinophils % (auto) 9.9 % (0.0-7.0); Hematocrit 23.1 % (41.0-53.0); Hemoglobin 7.9 g/dL (13.5-17.5); Mean Corpuscular Hemoglobin 29.7 pg (28.0-32.0); Mean Corpuscular Hgb Conc. 34.4 g/dL (32.0-36.0); Mean Corpuscular Volume 86.4 fL (80.0-100.0); Monocytes # (auto) 0.2 10 ^3/uL (0-1.3); Monocytes % (auto) 2.5 % (0.0-12.0); Neutrophils # (auto) 6.7 10 ^3/uL (1.6-8.6); Neutrophils % (auto) 72.5 % (37.0-80.0); Red Blood Cells 2.67 10^6/uL (4.5-5.90); Red Cell Distribution Width 16.6 % (11.8-14.3); White Blood Cell 9.2 10^3/uL (4.4-10.8)
[2020-09-26] MEDS ORDERED: SODIUM BICARBONATE 8.4 % INJ 50ML VIAL IV ONE (05:11)
[2020-09-26 05:17] LABS: Albumin 1.9 g/dL (3.4-5.0); Calcium 7.2 mg/dL (8.5-10.1)
[2020-09-26 05:19] LABS: INR 2.06 (0.9-1.15)
[2020-09-26 05:22] LABS: BUN/Creatinine Ratio 12.3; Bilirubin, Total 0.4 mg/dL (0.2-1.0); Total Protein 4.4 g/dL (6.4-8.2)
[2020-09-26] MEDS: FUROSEMIDE 100 MG/10ML VIAL IV SCH ×2 (06:00→18:00)
[2020-09-26] MEDS: InsuLIN REG 1unit/0.01ml Soln (100units/ml) SC SCH ×5 (06:00→23:03)
[2020-09-26] MEDS: ACCU-CHEK COMFORT CURVE STRIP VI SCH ×5 (06:00→23:03)
[2020-09-26] MEDS: NOREPINEPHRINE BITARTRATE 16 MG in SODIUM CHL 0.9% 250 ML IV SCH (09:43)
[2020-09-26] MEDS: MEROPENEM 500MG IVPB 50 ML IV SCH ×2 (09:54→22:00)
[2020-09-26] MEDS: SODIUM CHLOR 0.9% PF (SALINE LOCK) 10ML VIAL/SYR IV SCH ×2 (09:54→22:00)
[2020-09-26] MEDS: ZINC SULFATE 220mg CAP or TAB PO SCH (09:55)
[2020-09-26] MEDS: PANTOPRAZOLE 40 MG TAB PO SCH ×2 (09:55→22:00)
[2020-09-26] MEDS ORDERED: ENOXAPARIN SOD 30 MG/0.3 ML SYRINGE SC SCH (10:00)
[2020-09-26] MEDS ORDERED: DOPamine 1600MCG/ML D5W 250 ML IV SCH (14:00)
[2020-09-26] MEDS: CHOLECALCIFEROL (VITD3) 2,000 UNIT CAP/TAB PO SCH (14:06)
[2020-09-26] MEDS: ASCORBIC ACID 1,000 MG TAB PO SCH (14:06)
[2020-09-26] MEDS ORDERED: PHYTONADIONE (VIT K)10 MG/ML 1ML VIAL SUBCUT ONE (15:45)
[2020-09-26] MEDS ORDERED: levoFLOXacin 750MG 150 ML IV ONE (15:45)
[2020-09-26] MEDS: DOPamine 1600MCG/ML D5W 250 ML IV SCH (20:00)
[2020-09-26] MEDS: ATORVASTATIN 20 MG TAB PO SCH (22:00)
[2020-09-27] VITALS (94 sets, daily range): BP systolic 92–165; BP diastolic 50–93
[2020-09-27] MEDS: fentaNYL Drip 2500mCg/250mlNS 250 ML IV SCH ×2 (03:30→22:30)
[2020-09-27 04:56] LABS: INR 1.86 (0.9-1.15)
[2020-09-27 05:00] LABS: Albumin 1.6 g/dL (3.4-5.0); Calcium 7.2 mg/dL (8.5-10.1); Potassium 3.9 mmol/L (3.5-5.1)
[2020-09-27 05:02] LABS: Hemoglobin 8.2 g/dL (13.5-17.5)
[2020-09-27 05:03] LABS: Basophils # (auto) 0.2 10 ^3/uL (0-0.2); Basophils % (auto) 1.5 % (0.0-2.0); Eosinophils # (auto) 0.7 10 ^3/uL (0-0.8); Eosinophils % (auto) 6.2 % (0.0-7.0); Hematocrit 23.9 % (41.0-53.0); Lymphocytes # (auto) 2.1 10 ^3/uL (0.4-5.4); Lymphocytes % (auto) 19.9 % (10.0-50.0); Mean Corpuscular Hemoglobin 29.4 pg (28.0-32.0); Mean Corpuscular Hgb Conc. 34.1 g/dL (32.0-36.0); Mean Corpuscular Volume 86.2 fL (80.0-100.0); Monocytes # (auto) 0.2 10 ^3/uL (0-1.3); Monocytes % (auto) 1.5 % (0.0-12.0); Neutrophils # (auto) 7.5 10 ^3/uL (1.6-8.6); Neutrophils % (auto) 70.9 % (37.0-80.0); Nucleated Red Blood Cells % 2.2 %; Platelet Count (auto) 84 10^3/uL (140-450); Red Blood Cells 2.78 10^6/uL (4.5-5.90); Red Cell Distribution Width 16.1 % (11.8-14.3); White Blood Cell 10.6 10^3/uL (4.4-10.8)
[2020-09-27] MEDS: SODIUM BICARBONATE 50ML VIAL 150 ML in SOD CHL 0.45% 1,000 ML IV SCH ×2 (05:05→13:30)
[2020-09-27 05:08] LABS: BUN/Creatinine Ratio 11.9; Bilirubin, Total 0.4 mg/dL (0.2-1.0); Total Protein 4.3 g/dL (6.4-8.2)
[2020-09-27] MEDS: FUROSEMIDE 100 MG/10ML VIAL IV SCH (05:48)
[2020-09-27] MEDS: ACCU-CHEK COMFORT CURVE STRIP VI SCH ×3 (05:48→18:00)
[2020-09-27] MEDS: InsuLIN REG 1unit/0.01ml Soln (100units/ml) SC SCH ×3 (05:49→18:00)
[2020-09-27] MEDS: NOREPINEPHRINE BITARTRATE 16 MG in SODIUM CHL 0.9% 250 ML IV SCH (07:59)
[2020-09-27] MEDS: PANTOPRAZOLE 40 MG TAB PO SCH ×2 (09:25→22:00)
[2020-09-27] MEDS: ZINC SULFATE 220mg CAP or TAB PO SCH (09:25)
[2020-09-27] MEDS: SODIUM CHLOR 0.9% PF (SALINE LOCK) 10ML VIAL/SYR IV SCH ×2 (09:25→22:00)
[2020-09-27] MEDS: MEROPENEM 500MG IVPB 50 ML IV SCH ×2 (09:25→22:00)
[2020-09-27] MEDS: CHOLECALCIFEROL (VITD3) 2,000 UNIT CAP/TAB PO SCH (09:26)
[2020-09-27] MEDS: DOPamine 1600MCG/ML D5W 250 ML IV SCH (14:42)
[2020-09-27] MEDS: FUROSEMIDE INJECTION 100 MG in D5W 5% 100 ML IV SCH ×3 (15:00→23:00)
[2020-09-27] MEDS ORDERED: levoFLOXacin 750MG 150 ML IV SCH (15:00)
[2020-09-27] MEDS: MIDAZOLAM DRIP 50 mg/50mL 50 ML IV SCH (23:30)
[2020-09-28] VITALS (96 sets, daily range): BP systolic 83–156; BP diastolic 48–82
[2020-09-28] MEDS: ACCU-CHEK COMFORT CURVE STRIP VI SCH ×5 (00:11→23:12)
[2020-09-28] MEDS: SODIUM BICARBONATE 50ML VIAL 150 ML in SOD CHL 0.45% 1,000 ML IV SCH ×2 (02:00→14:02)
[2020-09-28] MEDS: FUROSEMIDE INJECTION 100 MG in D5W 5% 100 ML IV SCH ×5 (02:02→20:59)
[2020-09-28] MEDS: InsuLIN REG 1unit/0.01ml Soln (100units/ml) SC SCH ×5 (06:00→23:14)
[2020-09-28 06:12] LABS: Hematocrit 23.7 % (41.0-53.0); Hemoglobin 8.1 g/dL (13.5-17.5); Mean Corpuscular Hemoglobin 29.6 pg (28.0-32.0); Mean Corpuscular Hgb Conc. 34.3 g/dL (32.0-36.0); Mean Corpuscular Volume 86.1 fL (80.0-100.0); Platelet Count (auto) 108 10^3/uL (140-450); Red Blood Cells 2.75 10^6/uL (4.5-5.90); Red Cell Distribution Width 16.4 % (11.8-14.3); White Blood Cell 9.8 10^3/uL (4.4-10.8)
[2020-09-28 06:32] LABS: Basophils % (manual) 0 (0.0-2.0); Blast Cells 0; Myelocytes % 0; Promyelocytes % 0; Reactive Lymphocytes 0
[2020-09-28 06:35] LABS: Potassium 3.5 mmol/L (3.5-5.1)
[2020-09-28 06:38] LABS: INR 1.23 (0.9-1.15)
[2020-09-28 06:47] LABS: Albumin 1.4 g/dL (3.4-5.0); BUN/Creatinine Ratio 12.2; Bilirubin, Total 0.5 mg/dL (0.2-1.0); Calcium 7.4 mg/dL (8.5-10.1)
[2020-09-28 07:18] LABS: Band Neutrophils % (manual) 1; Eosinophils % (manual) 12 (0-7); Lymphocytes % (manual) 15 (10.0-50.0); Metamyelocytes % 1; Monocytes % (manual) 5 (0-12)
[2020-09-28] MEDS: NOREPINEPHRINE BITARTRATE 16 MG in SODIUM CHL 0.9% 250 ML IV SCH (08:15)
[2020-09-28] MEDS: PANTOPRAZOLE 40 MG TAB PO SCH (10:00)
[2020-09-28] MEDS: MEROPENEM 500MG IVPB 50 ML IV SCH ×2 (10:39→20:57)
[2020-09-28] MEDS: SODIUM CHLOR 0.9% PF (SALINE LOCK) 10ML VIAL/SYR IV SCH ×2 (10:39→20:57)
[2020-09-28] MEDS: ZINC SULFATE 220mg CAP or TAB PO SCH (10:40)
[2020-09-28] MEDS: CHOLECALCIFEROL (VITD3) 2,000 UNIT CAP/TAB PO SCH (10:40)
[2020-09-28] MEDS: DOPamine 1600MCG/ML D5W 250 ML IV SCH (14:02)
[2020-09-28] MEDS: Glucerna Carbsteady SHAKE Stawberry 8oz PO SCH ×2 (18:10→20:58)
[2020-09-28] MEDS: MIDAZOLAM DRIP 50 mg/50mL 50 ML IV SCH (19:22)
[2020-09-28] MEDS: FAMOTIDINE (10MG/ML) 2ML VL IV SCH (20:57)
[2020-09-29] VITALS (100 sets, daily range): BP systolic 83–164; BP diastolic 8–85
[2020-09-29] MEDS: fentaNYL Drip 2500mCg/250mlNS 250 ML IV SCH ×2 (02:15→07:41)
[2020-09-29] MEDS: SODIUM BICARBONATE 50ML VIAL 150 ML in SOD CHL 0.45% 1,000 ML IV SCH ×2 (03:10→12:19)
[2020-09-29] MEDS: MIDAZOLAM DRIP 50 mg/50mL 50 ML IV SCH ×3 (03:11→19:55)
[2020-09-29] MEDS: FUROSEMIDE INJECTION 100 MG in D5W 5% 100 ML IV SCH ×5 (03:36→23:00)
[2020-09-29 05:10] LABS: Basophils # (auto) 0.1 10 ^3/uL (0-0.2); Basophils % (auto) 1.2 % (0.0-2.0); Eosinophils # (auto) 0.7 10 ^3/uL (0-0.8); Eosinophils % (auto) 6.5 % (0.0-7.0); Hematocrit 25.5 % (41.0-53.0); Hemoglobin 8.7 g/dL (13.5-17.5); Lymphocytes # (auto) 1.8 10 ^3/uL (0.4-5.4); Lymphocytes % (auto) 16.1 % (10.0-50.0); Mean Corpuscular Hemoglobin 29.2 pg (28.0-32.0); Mean Corpuscular Volume 85.8 fL (80.0-100.0); Monocytes # (auto) 0.4 10 ^3/uL (0-1.3); Monocytes % (auto) 3.7 % (0.0-12.0); Neutrophils # (auto) 8.1 10 ^3/uL (1.6-8.6); Neutrophils % (auto) 72.5 % (37.0-80.0); Nucleated Red Blood Cells % 1.1 %; Platelet Count (auto) 118 10^3/uL (140-450); Red Blood Cells 2.97 10^6/uL (4.5-5.90); Red Cell Distribution Width 16.6 % (11.8-14.3); White Blood Cell 11.2 10^3/uL (4.4-10.8)
[2020-09-29 05:30] LABS: Potassium 3.2 mmol/L (3.5-5.1)
[2020-09-29 05:45] LABS: BUN/Creatinine Ratio 11.5; Calcium 7.3 mg/dL (8.5-10.1)
[2020-09-29] MEDS: InsuLIN REG 1unit/0.01ml Soln (100units/ml) SC SCH ×3 (06:22→18:10)
[2020-09-29] MEDS: Glucerna Carbsteady SHAKE Stawberry 8oz PO SCH ×4 (06:22→21:55)
[2020-09-29] MEDS: ACCU-CHEK COMFORT CURVE STRIP VI SCH ×3 (06:22→18:09)
[2020-09-29] MEDS: NOREPINEPHRINE BITARTRATE 16 MG in SODIUM CHL 0.9% 250 ML IV SCH (08:15)
[2020-09-29] MEDS: MEROPENEM 500MG IVPB 50 ML IV SCH ×2 (10:36→21:54)
[2020-09-29] MEDS: SODIUM CHLOR 0.9% PF (SALINE LOCK) 10ML VIAL/SYR IV SCH ×2 (10:37→21:54)
[2020-09-29] MEDS: ZINC SULFATE 220mg CAP or TAB PO SCH (10:37)
[2020-09-29] MEDS: CHOLECALCIFEROL (VITD3) 2,000 UNIT CAP/TAB PO SCH (10:38)
[2020-09-29] MEDS: levoFLOXacin 500MG 100 ML IV SCH (12:19)
[2020-09-29] MEDS: POTASSIUM CHL 20MEQ/100ML 100 ML IV SCH ×3 (13:28→16:57)
[2020-09-29] MEDS: DOPamine 1600MCG/ML D5W 250 ML IV SCH (14:36)
[2020-09-30] VITALS (98 sets, daily range): BP systolic 76–139; BP diastolic 38–77
[2020-09-30] MEDS: ACCU-CHEK COMFORT CURVE STRIP VI SCH ×4 (00:09→18:13)
[2020-09-30 04:09] LABS: Hematocrit 25.7 % (41.0-53.0); Hemoglobin 8.8 g/dL (13.5-17.5); Mean Corpuscular Hemoglobin 29.3 pg (28.0-32.0); Mean Corpuscular Hgb Conc. 34.1 g/dL (32.0-36.0); Mean Corpuscular Volume 86.2 fL (80.0-100.0); Platelet Count (auto) 110 10^3/uL (140-450); Red Blood Cells 2.98 10^6/uL (4.5-5.90); Red Cell Distribution Width 16.5 % (11.8-14.3); White Blood Cell 13.3 10^3/uL (4.4-10.8)
[2020-09-30 04:16] LABS: Basophils % (manual) 0 (0.0-2.0); Blast Cells 0; Metamyelocytes % 0; Promyelocytes % 0; Reactive Lymphocytes 0
[2020-09-30 04:26] LABS: Potassium 3.6 mmol/L (3.5-5.1)
[2020-09-30 04:29] LABS: BUN/Creatinine Ratio 11.9
[2020-09-30 04:36] LABS: Band Neutrophils % (manual) 16; Eosinophils % (manual) 8 (0-7); Lymphocytes % (manual) 13 (10.0-50.0); Monocytes % (manual) 5 (0-12); Myelocytes % 3
[2020-09-30] MEDS: Glucerna Carbsteady SHAKE Stawberry 8oz PO SCH ×4 (05:49→22:05)
[2020-09-30] MEDS: FUROSEMIDE INJECTION 100 MG in D5W 5% 100 ML IV SCH ×3 (05:49→13:33)
[2020-09-30] MEDS: InsuLIN REG 1unit/0.01ml Soln (100units/ml) SC SCH ×4 (05:53→18:15)
[2020-09-30] MEDS: NOREPINEPHRINE BITARTRATE 16 MG in SODIUM CHL 0.9% 250 ML IV SCH ×2 (08:15→22:53)
[2020-09-30] MEDS: MEROPENEM 500MG IVPB 50 ML IV SCH ×2 (09:42→22:05)
[2020-09-30] MEDS: SODIUM CHLOR 0.9% PF (SALINE LOCK) 10ML VIAL/SYR IV SCH ×2 (09:43→22:05)
[2020-09-30] MEDS: CHOLECALCIFEROL (VITD3) 2,000 UNIT CAP/TAB PO SCH (10:22)
[2020-09-30] MEDS: ZINC SULFATE 220mg CAP or TAB PO SCH (10:22)
[2020-09-30] MEDS: DOPamine 1600MCG/ML D5W 250 ML IV SCH ×2 (13:33→15:01)
[2020-09-30] MEDS: FAMOTIDINE (10MG/ML) 2ML VL IV SCH (22:05)
[2020-09-30] MEDS: MIDAZOLAM DRIP 50 mg/50mL 50 ML IV SCH (22:06)
[2020-10-01] VITALS (97 sets, daily range): BP systolic 85–178; BP diastolic 30–80
[2020-10-01] MEDS: InsuLIN REG 1unit/0.01ml Soln (100units/ml) SC SCH ×4 (00:48→18:33)
[2020-10-01] MEDS: ACCU-CHEK COMFORT CURVE STRIP VI SCH ×4 (00:49→18:30)
[2020-10-01] MEDS: fentaNYL Drip 2500mCg/250mlNS 250 ML IV SCH (01:22)
[2020-10-01] MEDS: MIDAZOLAM DRIP 50 mg/50mL 50 ML IV SCH ×2 (05:00→19:55)
[2020-10-01 05:24] LABS: Basophils # (auto) 0.2 10 ^3/uL (0-0.2); Eosinophils # (auto) 1.5 10 ^3/uL (0-0.8); Hematocrit 27.7 % (41.0-53.0); Hemoglobin 9.4 g/dL (13.5-17.5); Lymphocytes # (auto) 2.4 10 ^3/uL (0.4-5.4); Lymphocytes % (auto) 14.6 % (10.0-50.0); Mean Corpuscular Hemoglobin 29.4 pg (28.0-32.0); Mean Corpuscular Hgb Conc. 33.8 g/dL (32.0-36.0); Monocytes # (auto) 0.3 10 ^3/uL (0-1.3); Monocytes % (auto) 2.1 % (0.0-12.0); Neutrophils # (auto) 11.9 10 ^3/uL (1.6-8.6); Neutrophils % (auto) 73.3 % (37.0-80.0); Nucleated Red Blood Cells % 0.7 %; Platelet Count (auto) 144 10^3/uL (140-450); Red Blood Cells 3.19 10^6/uL (4.5-5.90); Red Cell Distribution Width 16.6 % (11.8-14.3); White Blood Cell 16.2 10^3/uL (4.4-10.8)
[2020-10-01 05:40] LABS: INR 1.32 (0.9-1.15)
[2020-10-01 05:44] LABS: Calcium 7.2 mg/dL (8.5-10.1); Magnesium 1.9 mg/dL (1.6-2.6); Potassium 3.5 mmol/L (3.5-5.1)
[2020-10-01 05:46] LABS: BUN/Creatinine Ratio 12.5
[2020-10-01] MEDS: Glucerna Carbsteady SHAKE Stawberry 8oz PO SCH ×4 (06:00→22:07)
[2020-10-01] MEDS: MEROPENEM 500MG IVPB 50 ML IV SCH ×2 (09:30→22:05)
[2020-10-01] MEDS: ZINC SULFATE 220mg CAP or TAB PO SCH (09:30)
[2020-10-01] MEDS: SODIUM CHLOR 0.9% PF (SALINE LOCK) 10ML VIAL/SYR IV SCH ×2 (09:30→22:05)
[2020-10-01] MEDS: CHOLECALCIFEROL (VITD3) 2,000 UNIT CAP/TAB PO SCH (09:30)
[2020-10-01] MEDS: levoFLOXacin 500MG 100 ML IV SCH (14:00)
[2020-10-01] MEDS: ALBUMIN 25% 100 ML IV SCH ×2 (14:01→19:05)
[2020-10-01] MEDS: BUMETANIDE INJECTION 25 MG in GIVE UN-DILUTED 0 ML IV SCH (14:11)
[2020-10-01] MEDS: NOREPINEPHRINE BITARTRATE 16 MG in SODIUM CHL 0.9% 250 ML IV SCH (22:37)
[2020-10-02] VITALS (97 sets, daily range): BP systolic 92–139; BP diastolic 53–76
[2020-10-02] MEDS: fentaNYL Drip 2500mCg/250mlNS 250 ML IV SCH (02:15)
[2020-10-02] MEDS: ALBUMIN 25% 100 ML IV SCH ×3 (03:18→19:47)
[2020-10-02 05:02] LABS: Eosinophils # (auto) 1.2 10 ^3/uL (0-0.8); Hemoglobin 7.6 g/dL (13.5-17.5); Monocytes # (auto) 0.6 10 ^3/uL (0-1.3)
[2020-10-02 05:06] LABS: Basophils # (auto) 0.1 10 ^3/uL (0-0.2); Basophils % (auto) 0.6 % (0.0-2.0); Eosinophils % (auto) 8.7 % (0.0-7.0); Hematocrit 22.4 % (41.0-53.0); Lymphocytes % (auto) 14.2 % (10.0-50.0); Mean Corpuscular Hemoglobin 29.4 pg (28.0-32.0); Mean Corpuscular Hgb Conc. 33.7 g/dL (32.0-36.0); Mean Corpuscular Volume 87.1 fL (80.0-100.0); Monocytes % (auto) 4.3 % (0.0-12.0); Neutrophils % (auto) 72.2 % (37.0-80.0); Nucleated Red Blood Cells % 0.3 %; Platelet Count (auto) 134 10^3/uL (140-450); Red Blood Cells 2.58 10^6/uL (4.5-5.90); Red Cell Distribution Width 16.7 % (11.8-14.3); White Blood Cell 13.8 10^3/uL (4.4-10.8)
[2020-10-02 05:22] LABS: Potassium 3.7 mmol/L (3.5-5.1)
[2020-10-02 05:28] LABS: Albumin 2.8 g/dL (3.4-5.0); BUN/Creatinine Ratio 12.5; Bilirubin, Total 0.7 mg/dL (0.2-1.0); Calcium 7.9 mg/dL (8.5-10.1); Magnesium 1.9 mg/dL (1.6-2.6)
[2020-10-02] MEDS: ACCU-CHEK COMFORT CURVE STRIP VI SCH ×5 (05:42→23:40)
[2020-10-02] MEDS: InsuLIN REG 1unit/0.01ml Soln (100units/ml) SC SCH ×5 (05:43→23:41)
[2020-10-02] MEDS: Glucerna Carbsteady SHAKE Stawberry 8oz PO SCH ×4 (05:44→21:50)
[2020-10-02] MEDS: SODIUM CHLOR 0.9% PF (SALINE LOCK) 10ML VIAL/SYR IV SCH ×2 (10:00→21:50)
[2020-10-02] MEDS: MEROPENEM 500MG IVPB 50 ML IV SCH ×2 (10:00→21:49)
[2020-10-02] MEDS: CHOLECALCIFEROL (VITD3) 2,000 UNIT CAP/TAB PO SCH (10:00)
[2020-10-02] MEDS: ZINC SULFATE 220mg CAP or TAB PO SCH (10:00)
[2020-10-02] MEDS: BUMETANIDE INJECTION 25 MG in GIVE UN-DILUTED 0 ML IV SCH (13:00)
[2020-10-02] MEDS ORDERED: MAGNESIUM SULFATE 1GM/100ML 100 ML IV ONE (13:00)
[2020-10-02] MEDS: DOPamine 1600MCG/ML D5W 250 ML IV SCH (14:00)
[2020-10-02] MEDS ORDERED: POTASSIUM CHL 20MEQ/100ML 200 ML IV ONE (15:22)
[2020-10-02] MEDS: POTASSIUM CHL 20MEQ/100ML 100 ML IV SCH ×2 (16:00→17:00)
[2020-10-02] MEDS: ERGOCALCIFEROL 50,000 UNIT(1.25MG) CAP PO SCH (17:15)
[2020-10-02] MEDS: FAMOTIDINE (10MG/ML) 2ML VL IV SCH (21:49)
[2020-10-02] MEDS: ATORVASTATIN 20 MG TAB PO SCH (21:50)
[2020-10-03] VITALS (102 sets, daily range): BP systolic 81–160; BP diastolic 48–75
[2020-10-03] MEDS: fentaNYL Drip 2500mCg/250mlNS 250 ML IV SCH ×2 (04:34→21:16)
[2020-10-03] MEDS: MIDAZOLAM DRIP 50 mg/50mL 50 ML IV SCH (04:35)
[2020-10-03] MEDS: Glucerna Carbsteady SHAKE Stawberry 8oz PO SCH ×4 (05:38→21:24)
[2020-10-03] MEDS: InsuLIN REG 1unit/0.01ml Soln (100units/ml) SC SCH ×3 (05:38→18:00)
[2020-10-03] MEDS: ACCU-CHEK COMFORT CURVE STRIP VI SCH ×3 (05:38→18:00)
[2020-10-03 05:52] LABS: Lymphocytes # (auto) 2.5 10 ^3/uL (0.4-5.4); Mean Corpuscular Volume 86.8 fL (80.0-100.0); Nucleated Red Blood Cells % 0.2 %; Red Cell Distribution Width 16.6 % (11.8-14.3)
[2020-10-03 05:54] LABS: Basophils # (auto) 0.1 10 ^3/uL (0-0.2); Eosinophils # (auto) 1.2 10 ^3/uL (0-0.8); Eosinophils % (auto) 8.7 % (0.0-7.0); Hematocrit 24.9 % (41.0-53.0); Hemoglobin 8.3 g/dL (13.5-17.5); Lymphocytes % (auto) 18.6 % (10.0-50.0); Mean Corpuscular Hemoglobin 28.8 pg (28.0-32.0); Mean Corpuscular Hgb Conc. 33.2 g/dL (32.0-36.0); Monocytes # (auto) 0.7 10 ^3/uL (0-1.3); Monocytes % (auto) 5.3 % (0.0-12.0); Neutrophils # (auto) 8.9 10 ^3/uL (1.6-8.6); Neutrophils % (auto) 66.4 % (37.0-80.0); Platelet Count (auto) 162 10^3/uL (140-450); Red Blood Cells 2.87 10^6/uL (4.5-5.90); White Blood Cell 13.5 10^3/uL (4.4-10.8)
[2020-10-03 06:09] LABS: INR 1.28 (0.9-1.15)
[2020-10-03 06:29] LABS: Potassium 3.7 mmol/L (3.5-5.1)
[2020-10-03 06:39] LABS: Albumin 2.9 g/dL (3.4-5.0); BUN/Creatinine Ratio 12.2; Bilirubin, Total 1.2 mg/dL (0.2-1.0); Calcium 7.9 mg/dL (8.5-10.1); Total Protein 5.2 g/dL (6.4-8.2)
[2020-10-03] MEDS: SODIUM CHLOR 0.9% PF (SALINE LOCK) 10ML VIAL/SYR IV SCH ×2 (10:00→21:24)
[2020-10-03] MEDS: CHOLECALCIFEROL (VITD3) 2,000 UNIT CAP/TAB PO SCH (10:00)
[2020-10-03] MEDS: ZINC SULFATE 220mg CAP or TAB PO SCH (10:00)
[2020-10-03] MEDS: MEROPENEM 500MG IVPB 50 ML IV SCH ×2 (10:00→21:23)
[2020-10-03] MEDS: BUMETANIDE INJECTION 25 MG in GIVE UN-DILUTED 0 ML IV SCH (11:15)
[2020-10-03] MEDS: levoFLOXacin 500MG 100 ML IV SCH (12:00)
[2020-10-03] MEDS: DOPamine 1600MCG/ML D5W 250 ML IV SCH ×2 (14:00→22:34)
[2020-10-03] MEDS: ATORVASTATIN 20 MG TAB PO SCH (21:24)
[2020-10-04] VITALS (71 sets, daily range): BP systolic 83–130; BP diastolic 48–76
[2020-10-04] MEDS: ACCU-CHEK COMFORT CURVE STRIP VI SCH ×4 (06:00→18:00)
[2020-10-04] MEDS: Glucerna Carbsteady SHAKE Stawberry 8oz PO SCH ×4 (06:00→22:00)
[2020-10-04] MEDS: InsuLIN REG 1unit/0.01ml Soln (100units/ml) SC SCH ×4 (06:00→18:00)
[2020-10-04] MEDS: NOREPINEPHRINE 8 MG/250ML KIT 250 ML IV SCH ×2 (09:59→10:00)
[2020-10-04] MEDS: SODIUM CHLOR 0.9% PF (SALINE LOCK) 10ML VIAL/SYR IV SCH ×2 (10:00→22:00)
[2020-10-04] MEDS: CHOLECALCIFEROL (VITD3) 2,000 UNIT CAP/TAB PO SCH (10:00)
[2020-10-04] MEDS: BUMETANIDE INJECTION 25 MG in GIVE UN-DILUTED 0 ML IV SCH (10:00)
[2020-10-04] MEDS: MEROPENEM 500MG IVPB 50 ML IV SCH ×2 (10:00→22:00)
[2020-10-04] MEDS: ZINC SULFATE 220mg CAP or TAB PO SCH (10:00)
[2020-10-04] MEDS ORDERED: NOREPINEPHRINE 8 MG/250ML KIT 250 ML IV ONE (10:01)
[2020-10-04 10:18] LABS: Basophils # (auto) 0.2 10 ^3/uL (0-0.2); Basophils % (auto) 1.5 % (0.0-2.0); Eosinophils # (auto) 0.6 10 ^3/uL (0-0.8); Eosinophils % (auto) 3.8 % (0.0-7.0); Hematocrit 26.5 % (41.0-53.0); Hemoglobin 8.6 g/dL (13.5-17.5); Lymphocytes # (auto) 2.5 10 ^3/uL (0.4-5.4); Lymphocytes % (auto) 16.5 % (10.0-50.0); Mean Corpuscular Hemoglobin 28.5 pg (28.0-32.0); Mean Corpuscular Hgb Conc. 32.5 g/dL (32.0-36.0); Mean Corpuscular Volume 87.6 fL (80.0-100.0); Monocytes # (auto) 0.8 10 ^3/uL (0-1.3); Monocytes % (auto) 5.3 % (0.0-12.0); Neutrophils # (auto) 11.2 10 ^3/uL (1.6-8.6); Neutrophils % (auto) 72.9 % (37.0-80.0); Nucleated Red Blood Cells % 0.1 %; Platelet Count (auto) 184 10^3/uL (140-450); Red Blood Cells 3.03 10^6/uL (4.5-5.90); Red Cell Distribution Width 16.8 % (11.8-14.3); White Blood Cell 15.4 10^3/uL (4.4-10.8)
[2020-10-04 10:35] LABS: Calcium 7.6 mg/dL (8.5-10.1); Magnesium 1.8 mg/dL (1.6-2.6); Potassium 3.4 mmol/L (3.5-5.1)
[2020-10-04 10:39] LABS: BUN/Creatinine Ratio 12.9; Bilirubin, Total 0.9 mg/dL (0.2-1.0)
[2020-10-04] MEDS: ASPirin-EC 81 mg tab PO SCH (11:15)
[2020-10-04] MEDS: MIDAZOLAM DRIP 50 mg/50mL 50 ML IV SCH ×2 (15:00→18:15)
[2020-10-04] MEDS: CIPROFLOXACIN 400MG/200ML 200 ML IV SCH (16:00)
[2020-10-04] MEDS ORDERED: POTASSIUM CHL 20MEQ/100ML 100 ML IV ONE ×2 (17:35→19:00)
[2020-10-04] MEDS: ATORVASTATIN 20 MG TAB PO SCH (22:00)
[2020-10-04] MEDS: FAMOTIDINE (10MG/ML) 2ML VL IV SCH (22:00)
[2020-10-05] VITALS (98 sets, daily range): BP systolic 86–130; BP diastolic 50–83
[2020-10-05] MEDS: fentaNYL Drip 2500mCg/250mlNS 250 ML IV SCH ×2 (02:26→23:25)
[2020-10-05] MEDS: DOPamine 1600MCG/ML D5W 250 ML IV SCH (02:27)
[2020-10-05] MEDS: MIDAZOLAM DRIP 50 mg/50mL 50 ML IV SCH ×2 (02:29→15:14)
[2020-10-05] MEDS: Glucerna Carbsteady SHAKE Stawberry 8oz PO SCH ×4 (06:00→22:00)
[2020-10-05] MEDS: ACCU-CHEK COMFORT CURVE STRIP VI SCH ×4 (06:00→18:34)
[2020-10-05] MEDS: InsuLIN REG 1unit/0.01ml Soln (100units/ml) SC SCH ×4 (06:00→18:35)
[2020-10-05 06:40] LABS: Hematocrit 28.8 % (41.0-53.0); Hemoglobin 9.2 g/dL (13.5-17.5); Mean Corpuscular Volume 87.6 fL (80.0-100.0); Platelet Count (auto) 278 10^3/uL (140-450); Red Blood Cells 3.28 10^6/uL (4.5-5.90); Red Cell Distribution Width 16.9 % (11.8-14.3); White Blood Cell 21.9 10^3/uL (4.4-10.8)
[2020-10-05 06:58] LABS: INR 1.32 (0.9-1.15)
[2020-10-05 07:01] LABS: Basophils % (manual) 0 (0.0-2.0); Blast Cells 0; Myelocytes % 0; Promyelocytes % 0; Reactive Lymphocytes 0
[2020-10-05 07:02] LABS: Potassium 3.6 mmol/L (3.5-5.1)
[2020-10-05 07:08] LABS: Albumin 2.3 g/dL (3.4-5.0); BUN/Creatinine Ratio 13.7; Bilirubin, Total 0.8 mg/dL (0.2-1.0); Magnesium 1.8 mg/dL (1.6-2.6); Total Protein 5.4 g/dL (6.4-8.2)
[2020-10-05] MEDS: ASPirin-EC 81 mg tab PO SCH (08:18)
[2020-10-05] MEDS: ZINC SULFATE 220mg CAP or TAB PO SCH (08:18)
[2020-10-05] MEDS: CHOLECALCIFEROL (VITD3) 2,000 UNIT CAP/TAB PO SCH (08:18)
[2020-10-05] MEDS: BUMETANIDE INJECTION 25 MG in GIVE UN-DILUTED 0 ML IV SCH (08:20)
[2020-10-05] MEDS ORDERED: POTASSIUM EFFERVESENT TAB 25 MEQ GT ONE (08:45)
[2020-10-05] MEDS: CIPROFLOXACIN 400MG/200ML 200 ML IV SCH (09:22)
[2020-10-05] MEDS: MEROPENEM 500MG IVPB 50 ML IV SCH ×2 (09:22→22:00)
[2020-10-05] MEDS: SODIUM CHLOR 0.9% PF (SALINE LOCK) 10ML VIAL/SYR IV SCH ×2 (09:22→22:00)
[2020-10-05] MEDS: acetaZOLAMIDE SODIUM 500 MG VL IV SCH ×2 (10:00→22:00)
[2020-10-05 13:11] LABS: Band Neutrophils % (manual) 10; Eosinophils % (manual) 8 (0-7); Lymphocytes % (manual) 15 (10.0-50.0); Metamyelocytes % 1; Monocytes % (manual) 5 (0-12)
[2020-10-05] MEDS ORDERED: levoFLOXacin 250MG 50 ML IV ONE (15:15)
[2020-10-05] MEDS: NOREPINEPHRINE 8 MG/250ML KIT 250 ML IV SCH (15:16)
[2020-10-05] MEDS: ATORVASTATIN 20 MG TAB PO SCH (22:00)
[2020-10-06] VITALS (90 sets, daily range): BP systolic 78–123; BP diastolic 50–77
[2020-10-06] MEDS: DOPamine 1600MCG/ML D5W 250 ML IV SCH (04:00)
[2020-10-06] MEDS: MIDAZOLAM DRIP 50 mg/50mL 50 ML IV SCH ×3 (04:00→22:45)
[2020-10-06] MEDS: InsuLIN REG 1unit/0.01ml Soln (100units/ml) SC SCH ×4 (06:00→18:04)
[2020-10-06] MEDS: Glucerna Carbsteady SHAKE Stawberry 8oz PO SCH ×4 (06:00→22:00)
[2020-10-06] MEDS: ACCU-CHEK COMFORT CURVE STRIP VI SCH ×4 (06:00→18:03)
[2020-10-06 07:03] LABS: Hematocrit 28.2 % (41.0-53.0); Hemoglobin 9.3 g/dL (13.5-17.5); Mean Corpuscular Hemoglobin 28.8 pg (28.0-32.0); Mean Corpuscular Hgb Conc. 32.9 g/dL (32.0-36.0); Mean Corpuscular Volume 87.5 fL (80.0-100.0); Platelet Count (auto) 281 10^3/uL (140-450); Red Blood Cells 3.22 10^6/uL (4.5-5.90); Red Cell Distribution Width 16.8 % (11.8-14.3); White Blood Cell 21.6 10^3/uL (4.4-10.8)
[2020-10-06 07:07] LABS: Basophils % (manual) 0 (0.0-2.0); Blast Cells 0; Promyelocytes % 0; Reactive Lymphocytes 0
[2020-10-06 07:25] LABS: BUN/Creatinine Ratio 14.2; Calcium 7.7 mg/dL (8.5-10.1)
[2020-10-06] MEDS: BUMETANIDE INJECTION 25 MG in GIVE UN-DILUTED 0 ML IV SCH ×2 (07:44→09:37)
[2020-10-06] MEDS: ZINC SULFATE 220mg CAP or TAB PO SCH (08:13)
[2020-10-06] MEDS: ASPirin-EC 81 mg tab PO SCH (08:13)
[2020-10-06] MEDS: SODIUM CHLOR 0.9% PF (SALINE LOCK) 10ML VIAL/SYR IV SCH ×2 (09:37→22:00)
[2020-10-06] MEDS: levoFLOXacin 250MG 50 ML IV SCH (09:38)
[2020-10-06] MEDS: MEROPENEM 500MG IVPB 50 ML IV SCH ×2 (09:38→22:00)
[2020-10-06] MEDS: CHOLECALCIFEROL (VITD3) 2,000 UNIT CAP/TAB PO SCH (10:00)
[2020-10-06] MEDS: acetaZOLAMIDE SODIUM 500 MG VL IV SCH ×2 (10:00→22:00)
[2020-10-06 12:12] LABS: Band Neutrophils % (manual) 11; Eosinophils % (manual) 6 (0-7); Lymphocytes % (manual) 14 (10.0-50.0); Metamyelocytes % 1; Monocytes % (manual) 7 (0-12); Myelocytes % 1
[2020-10-06] MEDS: NOREPINEPHRINE 8 MG/250ML KIT 250 ML IV SCH (18:37)
[2020-10-06] MEDS: ATORVASTATIN 20 MG TAB PO SCH (22:00)
[2020-10-06] MEDS: FAMOTIDINE (10MG/ML) 2ML VL IV SCH (22:00)
[2020-10-07] VITALS (100 sets, daily range): BP systolic 85–151; BP diastolic 43–77
[2020-10-07] MEDS: fentaNYL Drip 2500mCg/250mlNS 250 ML IV SCH (02:15)
[2020-10-07] MEDS: ACCU-CHEK COMFORT CURVE STRIP VI SCH ×5 (06:00→23:52)
[2020-10-07] MEDS: InsuLIN REG 1unit/0.01ml Soln (100units/ml) SC SCH ×5 (06:00→23:54)
[2020-10-07] MEDS: Glucerna Carbsteady SHAKE Stawberry 8oz PO SCH ×4 (06:00→22:00)
[2020-10-07 06:18] LABS: Hematocrit 29.8 % (41.0-53.0); Hemoglobin 9.7 g/dL (13.5-17.5); Mean Corpuscular Hemoglobin 28.5 pg (28.0-32.0); Mean Corpuscular Hgb Conc. 32.5 g/dL (32.0-36.0); Mean Corpuscular Volume 87.6 fL (80.0-100.0); Platelet Count (auto) 338 10^3/uL (140-450); Red Cell Distribution Width 16.9 % (11.8-14.3); White Blood Cell 27.4 10^3/uL (4.4-10.8)
[2020-10-07 06:23] LABS: BUN/Creatinine Ratio 15.1; Calcium 7.2 mg/dL (8.5-10.1); Potassium 3.7 mmol/L (3.5-5.1)
[2020-10-07 06:24] LABS: Basophils % (manual) 0 (0.0-2.0); Blast Cells 0; Myelocytes % 0; Promyelocytes % 0; Reactive Lymphocytes 0
[2020-10-07 07:46] LABS: Band Neutrophils % (manual) 28; Eosinophils % (manual) 1 (0-7); Lymphocytes % (manual) 13 (10.0-50.0); Metamyelocytes % 2; Monocytes % (manual) 5 (0-12)
[2020-10-07] MEDS: BUMETANIDE INJECTION 25 MG in GIVE UN-DILUTED 0 ML IV SCH (09:00)
[2020-10-07] MEDS: ZINC SULFATE 220mg CAP or TAB PO SCH (10:00)
[2020-10-07] MEDS: levoFLOXacin 250MG 50 ML IV SCH (10:00)
[2020-10-07] MEDS: ASPirin-EC 81 mg tab PO SCH (10:00)
[2020-10-07] MEDS: MEROPENEM 500MG IVPB 50 ML IV SCH ×2 (10:00→22:30)
[2020-10-07] MEDS: SODIUM CHLOR 0.9% PF (SALINE LOCK) 10ML VIAL/SYR IV SCH ×2 (10:00→21:03)
[2020-10-07] MEDS: CHOLECALCIFEROL (VITD3) 2,000 UNIT CAP/TAB PO SCH (10:00)
[2020-10-07] MEDS ORDERED: MAGNESIUM SULFATE 1GM/100ML 100 ML IV ONE (11:15)
[2020-10-07] MEDS: DOPamine 1600MCG/ML D5W 250 ML IV SCH (14:00)
[2020-10-07] MEDS: CIPROFLOXACIN 400MG/200ML 200 ML IV SCH (20:13)
[2020-10-07] MEDS: NOREPINEPHRINE 8 MG/250ML KIT 250 ML IV SCH (22:00)
[2020-10-07] MEDS: ATORVASTATIN 20 MG TAB PO SCH (22:00)
[2020-10-07] MEDS: INSULIN LANTUS (GLARGINE) 1 /0.01ml (100units/ml) SC SCH (22:10)
[2020-10-08] VITALS (99 sets, daily range): BP systolic 80–147; BP diastolic 45–80
[2020-10-08] MEDS: fentaNYL Drip 2500mCg/250mlNS 250 ML IV SCH (02:15)
[2020-10-08] MEDS: InsuLIN REG 1unit/0.01ml Soln (100units/ml) SC SCH ×4 (06:00→23:37)
[2020-10-08] MEDS: Glucerna Carbsteady SHAKE Stawberry 8oz PO SCH ×4 (06:00→21:59)
[2020-10-08] MEDS: ACCU-CHEK COMFORT CURVE STRIP VI SCH ×4 (06:00→23:36)
[2020-10-08 07:15] LABS: Hematocrit 29.2 % (41.0-53.0); Hemoglobin 9.6 g/dL (13.5-17.5); Mean Corpuscular Hemoglobin 28.4 pg (28.0-32.0); Mean Corpuscular Volume 86.1 fL (80.0-100.0); Platelet Count (auto) 365 10^3/uL (140-450); Red Blood Cells 3.39 10^6/uL (4.5-5.90); Red Cell Distribution Width 16.2 % (11.8-14.3); White Blood Cell 26.9 10^3/uL (4.4-10.8)
[2020-10-08 07:19] LABS: Basophils % (manual) 0 (0.0-2.0); Blast Cells 0; Myelocytes % 0; Promyelocytes % 0; Reactive Lymphocytes 0
[2020-10-08 07:31] LABS: Calcium 7.6 mg/dL (8.5-10.1); Potassium 3.3 mmol/L (3.5-5.1)
[2020-10-08 07:33] LABS: BUN/Creatinine Ratio 15.7
[2020-10-08] MEDS: CIPROFLOXACIN 400MG/200ML 200 ML IV SCH ×2 (08:00→21:23)
[2020-10-08 09:14] LABS: INR 1.28 (0.9-1.15)
[2020-10-08] MEDS: ASPirin-EC 81 mg tab PO SCH (09:27)
[2020-10-08] MEDS: ZINC SULFATE 220mg CAP or TAB PO SCH (09:27)
[2020-10-08] MEDS: MEROPENEM 500MG IVPB 50 ML IV SCH ×2 (09:27→23:01)
[2020-10-08] MEDS: SODIUM CHLOR 0.9% PF (SALINE LOCK) 10ML VIAL/SYR IV SCH ×2 (09:27→21:59)
[2020-10-08] MEDS: CHOLECALCIFEROL (VITD3) 2,000 UNIT CAP/TAB PO SCH (09:28)
[2020-10-08] MEDS ORDERED: BUMETANIDE INJECTION 25 MG in GIVE UN-DILUTED 0 ML IV SCH (09:30)
[2020-10-08] MEDS: POTASSIUM CHL 20MEQ/100ML 100 ML IV SCH ×3 (09:30→13:46)
[2020-10-08] MEDS ORDERED: FLORASTOR (S. BOULARDII) 250 MG CAP PO ONE (12:17)
[2020-10-08] MEDS ORDERED: ENOXAPARIN SOD 100 MG/1 ML SYRINGE SC ONE (12:28)
[2020-10-08] MEDS ORDERED: SODIUM FERR GLUC 62.5MG/5ML 125 MG in SODIUM CHL 0.9% 100 ML IV ONE (12:30)
[2020-10-08 13:11] LABS: % Iron Saturation 36.6 % (20-55)
[2020-10-08 13:24] LABS: Band Neutrophils % (manual) 7; Eosinophils % (manual) 2 (0-7); Lymphocytes % (manual) 18 (10.0-50.0); Metamyelocytes % 1; Monocytes % (manual) 7 (0-12)
[2020-10-08] MEDS: LINEZOLID 600MG/300ML 300 ML IV SCH (14:00)
[2020-10-08] MEDS: FAMOTIDINE (10MG/ML) 2ML VL IV SCH (21:59)
[2020-10-08] MEDS: INSULIN LANTUS (GLARGINE) 1 /0.01ml (100units/ml) SC SCH (22:00)
[2020-10-08] MEDS: ATORVASTATIN 20 MG TAB PO SCH (22:00)
[2020-10-09] VITALS (85 sets, daily range): BP systolic 99–134; BP diastolic 53–78
[2020-10-09] MEDS: fentaNYL Drip 2500mCg/250mlNS 250 ML IV SCH (02:15)
[2020-10-09] MEDS: LINEZOLID 600MG/300ML 300 ML IV SCH ×2 (03:05→14:10)
[2020-10-09 04:43] LABS: Hematocrit 26.3 % (41.0-53.0); Hemoglobin 8.8 g/dL (13.5-17.5); Mean Corpuscular Hemoglobin 28.9 pg (28.0-32.0); Mean Corpuscular Hgb Conc. 33.4 g/dL (32.0-36.0); Mean Corpuscular Volume 86.4 fL (80.0-100.0); Platelet Count (auto) 326 10^3/uL (140-450); Red Blood Cells 3.04 10^6/uL (4.5-5.90); Red Cell Distribution Width 16.3 % (11.8-14.3); White Blood Cell 27.7 10^3/uL (4.4-10.8)
[2020-10-09 04:50] LABS: INR 1.34 (0.9-1.15)
[2020-10-09 05:03] LABS: Lactic Acid w/Reflex 3.1 mmol/L (0.4-2.0)
[2020-10-09 05:06] LABS: Potassium 3.7 mmol/L (3.5-5.1)
[2020-10-09 05:16] LABS: Blast Cells 0; Metamyelocytes % 0; Myelocytes % 0; Promyelocytes % 0; Reactive Lymphocytes 0
[2020-10-09 05:20] LABS: Bilirubin, Total 1.3 mg/dL (0.2-1.0); Calcium 7.4 mg/dL (8.5-10.1); Total Protein 5.8 g/dL (6.4-8.2)
[2020-10-09] MEDS: InsuLIN REG 1unit/0.01ml Soln (100units/ml) SC SCH ×3 (05:30→18:00)
[2020-10-09] MEDS: ACCU-CHEK COMFORT CURVE STRIP VI SCH ×3 (05:30→18:12)
[2020-10-09] MEDS: Glucerna Carbsteady SHAKE Stawberry 8oz PO SCH ×4 (05:31→22:00)
[2020-10-09] MEDS: CIPROFLOXACIN 400MG/200ML 200 ML IV SCH ×2 (08:00→20:00)
[2020-10-09 08:28] LABS: Band Neutrophils % (manual) 2; Basophils % (manual) 1 (0.0-2.0); Eosinophils % (manual) 2 (0-7); Lymphocytes % (manual) 15 (10.0-50.0); Monocytes % (manual) 3 (0-12)
[2020-10-09] MEDS: CHOLECALCIFEROL (VITD3) 2,000 UNIT CAP/TAB PO SCH (10:00)
[2020-10-09] MEDS ORDERED: CIPROFLOXACIN 400MG/200ML 200 ML IV SCH (10:00)
[2020-10-09] MEDS: FLORASTOR (S. BOULARDII) 250 MG CAP PO SCH (10:20)
[2020-10-09] MEDS: ENOXAPARIN SOD 100 MG/1 ML SYRINGE SC SCH (10:20)
[2020-10-09] MEDS: MEROPENEM 500MG IVPB 50 ML IV SCH ×2 (10:21→22:00)
[2020-10-09] MEDS: SODIUM CHLOR 0.9% PF (SALINE LOCK) 10ML VIAL/SYR IV SCH ×2 (10:21→22:00)
[2020-10-09] MEDS: ZINC SULFATE 220mg CAP or TAB PO SCH (10:21)
[2020-10-09] MEDS: SODIUM FERR GLUC 62.5MG/5ML 125 MG in SODIUM CHL 0.9% 100 ML IV SCH (12:00)
[2020-10-09] MEDS ORDERED: MICAFUNGIN SODIUM 100 MG in SODIUM CHL 0.9% 100 ML IV ONE (15:30)
[2020-10-09] MEDS ORDERED: SODIUM CHLORIDE 0.9% 500 ML IV ONE (15:30)
[2020-10-09] MEDS: ERGOCALCIFEROL 50,000 UNIT(1.25MG) CAP PO SCH (17:15)
[2020-10-09] MEDS: ATORVASTATIN 20 MG TAB PO SCH (22:00)
[2020-10-09] MEDS: BACITRACIN TOP OINT 1 UD PKG TOP SCH (22:00)
[2020-10-09] MEDS: INSULIN LANTUS (GLARGINE) 1 /0.01ml (100units/ml) SC SCH (22:00)
[2020-10-10] VITALS (54 sets, daily range): BP systolic 91–135; BP diastolic 50–73
[2020-10-10] MEDS: LINEZOLID 600MG/300ML 300 ML IV SCH ×2 (02:00→14:00)
[2020-10-10] MEDS: Glucerna Carbsteady SHAKE Stawberry 8oz PO SCH ×4 (06:00→22:00)
[2020-10-10] MEDS: ACCU-CHEK COMFORT CURVE STRIP VI SCH ×5 (06:00→23:40)
[2020-10-10] MEDS: InsuLIN REG 1unit/0.01ml Soln (100units/ml) SC SCH ×4 (06:00→18:00)
[2020-10-10 07:32] LABS: Hematocrit 24.8 % (41.0-53.0); Platelet Count (auto) 340 10^3/uL (140-450); Red Cell Distribution Width 15.9 % (11.8-14.3)
[2020-10-10 07:33] LABS: Hemoglobin 8.1 g/dL (13.5-17.5); Mean Corpuscular Hemoglobin 28.3 pg (28.0-32.0); Mean Corpuscular Hgb Conc. 32.7 g/dL (32.0-36.0); Mean Corpuscular Volume 86.5 fL (80.0-100.0); Red Blood Cells 2.87 10^6/uL (4.5-5.90); White Blood Cell 26.8 10^3/uL (4.4-10.8)
[2020-10-10 07:37] LABS: BUN/Creatinine Ratio 17.3; Calcium 7.3 mg/dL (8.5-10.1); Potassium 3.5 mmol/L (3.5-5.1)
[2020-10-10 07:40] LABS: Basophils % (manual) 0 (0.0-2.0); Bilirubin, Total 1.7 mg/dL (0.2-1.0); Blast Cells 0; Myelocytes % 0; Promyelocytes % 0; Reactive Lymphocytes 0; Total Protein 5.8 g/dL (6.4-8.2)
[2020-10-10 07:42] LABS: Lactic Acid w/Reflex 2.3 mmol/L (0.4-2.0)
[2020-10-10] MEDS: CIPROFLOXACIN 400MG/200ML 200 ML IV SCH ×2 (08:00→20:00)
[2020-10-10] MEDS: FLORASTOR (S. BOULARDII) 250 MG CAP PO SCH (10:00)
[2020-10-10] MEDS: ENOXAPARIN SOD 100 MG/1 ML SYRINGE SC SCH (10:00)
[2020-10-10] MEDS: ZINC SULFATE 220mg CAP or TAB PO SCH (10:00)
[2020-10-10] MEDS: MEROPENEM 500MG IVPB 50 ML IV SCH ×2 (10:00→22:00)
[2020-10-10] MEDS: CHOLECALCIFEROL (VITD3) 2,000 UNIT CAP/TAB PO SCH (10:00)
[2020-10-10] MEDS: SODIUM CHLOR 0.9% PF (SALINE LOCK) 10ML VIAL/SYR IV SCH ×2 (10:00→22:00)
[2020-10-10] MEDS: BACITRACIN TOP OINT 1 UD PKG TOP SCH ×2 (10:00→22:00)
[2020-10-10] MEDS ORDERED: MICAFUNGIN SODIUM 100 MG in SODIUM CHL 0.9% 100 ML IV SCH (10:00)
[2020-10-10 10:59] LABS: Band Neutrophils % (manual) 8; Eosinophils % (manual) 1 (0-7); Lymphocytes % (manual) 7 (10.0-50.0); Metamyelocytes % 1; Monocytes % (manual) 8 (0-12)
[2020-10-10] MEDS: SODIUM FERR GLUC 62.5MG/5ML 125 MG in SODIUM CHL 0.9% 100 ML IV SCH (12:00)
[2020-10-10] MEDS: MICAFUNGIN SODIUM 100 MG in SODIUM CHL 0.9% 100 ML IV SCH (13:00)
[2020-10-10] MEDS: FAMOTIDINE (10MG/ML) 2ML VL IV SCH (22:00)
[2020-10-10] MEDS: ATORVASTATIN 20 MG TAB PO SCH (22:00)
[2020-10-10] MEDS: INSULIN LANTUS (GLARGINE) 1 /0.01ml (100units/ml) SC SCH (23:40)
[2020-10-11] VITALS (53 sets, daily range): BP systolic 100–142; BP diastolic 47–75
[2020-10-11] MEDS: LINEZOLID 600MG/300ML 300 ML IV SCH ×2 (02:00→14:00)
[2020-10-11 06:05] LABS: Hemoglobin 7.8 g/dL (13.5-17.5); White Blood Cell 24.7 10^3/uL (4.4-10.8)
[2020-10-11 06:07] LABS: Hematocrit 23.3 % (41.0-53.0); Mean Corpuscular Hgb Conc. 33.4 g/dL (32.0-36.0); Mean Corpuscular Volume 86.8 fL (80.0-100.0); Platelet Count (auto) 305 10^3/uL (140-450); Red Blood Cells 2.69 10^6/uL (4.5-5.90)
[2020-10-11] MEDS: Glucerna Carbsteady SHAKE Stawberry 8oz PO SCH ×4 (06:24→22:00)
[2020-10-11] MEDS: ACCU-CHEK COMFORT CURVE STRIP VI SCH ×3 (06:25→18:17)
[2020-10-11] MEDS: InsuLIN REG 1unit/0.01ml Soln (100units/ml) SC SCH ×4 (06:39→18:00)
[2020-10-11 06:40] LABS: Basophils % (manual) 0 (0.0-2.0); Blast Cells 0; Eosinophils % (manual) 0 (0-7); Metamyelocytes % 0; Myelocytes % 0; Promyelocytes % 0; Reactive Lymphocytes 0
[2020-10-11 06:58] LABS: Albumin 1.9 g/dL (3.4-5.0); BUN/Creatinine Ratio 17.1; Calcium 6.9 mg/dL (8.5-10.1); Magnesium 1.9 mg/dL (1.6-2.6); Total Protein 5.8 g/dL (6.4-8.2)
[2020-10-11 07:16] LABS: Potassium 2.9 mmol/L (3.5-5.1)
[2020-10-11] MEDS: CIPROFLOXACIN 400MG/200ML 200 ML IV SCH ×2 (08:00→20:00)
[2020-10-11 08:39] LABS: Band Neutrophils % (manual) 1; Lymphocytes % (manual) 18 (10.0-50.0); Monocytes % (manual) 6 (0-12)
[2020-10-11] MEDS: ENOXAPARIN SOD 60 MG/0.6 ML SYRINGE SC SCH (10:00)
[2020-10-11] MEDS: SODIUM CHLOR 0.9% PF (SALINE LOCK) 10ML VIAL/SYR IV SCH ×2 (10:00→22:00)
[2020-10-11] MEDS: BACITRACIN TOP OINT 1 UD PKG TOP SCH ×2 (10:00→22:00)
[2020-10-11 10:26] LABS: Lactic Acid w/Reflex 3.5 mmol/L (0.4-2.0)
[2020-10-11] MEDS: POTASSIUM CHL 20MEQ/100ML 100 ML IV SCH ×2 (10:45→12:45)
[2020-10-11] MEDS: MEROPENEM 500MG IVPB 50 ML IV SCH ×2 (11:00→22:01)
[2020-10-11] MEDS: ZINC SULFATE 220mg CAP or TAB PO SCH (11:00)
[2020-10-11] MEDS: FLORASTOR (S. BOULARDII) 250 MG CAP PO SCH (11:00)
[2020-10-11] MEDS: CHOLECALCIFEROL (VITD3) 2,000 UNIT CAP/TAB PO SCH (11:01)
[2020-10-11] MEDS: SODIUM FERR GLUC 62.5MG/5ML 125 MG in SODIUM CHL 0.9% 100 ML IV SCH (12:00)
[2020-10-11] MEDS ORDERED: POTASSIUM CHL 20MEQ/100ML 100 ML IV SCH (12:30)
[2020-10-11] MEDS: MICAFUNGIN SODIUM 100 MG in SODIUM CHL 0.9% 100 ML IV SCH (13:00)
[2020-10-11] MEDS ORDERED: SODIUM CHLORIDE 0.9% 500 ML IV ONE (13:15)
[2020-10-11] MEDS ORDERED: MAGNESIUM SULFATE 1GM/100ML 100 ML IV ONE (15:30)
[2020-10-11] MEDS: INSULIN LANTUS (GLARGINE) 1 /0.01ml (100units/ml) SC SCH (22:00)
[2020-10-11] MEDS: ATORVASTATIN 20 MG TAB PO SCH (22:02)
[2020-10-12] VITALS (99 sets, daily range): BP systolic 101–137; BP diastolic 51–78
[2020-10-12] MEDS: LINEZOLID 600MG/300ML 300 ML IV SCH ×2 (02:00→13:37)
[2020-10-12 05:03] LABS: Hematocrit 21.1 % (41.0-53.0); Mean Corpuscular Hemoglobin 28.4 pg (28.0-32.0); Mean Corpuscular Hgb Conc. 32.5 g/dL (32.0-36.0); Mean Corpuscular Volume 87.5 fL (80.0-100.0); Platelet Count (auto) 255 10^3/uL (140-450); Red Blood Cells 2.41 10^6/uL (4.5-5.90); Red Cell Distribution Width 16.5 % (11.8-14.3); White Blood Cell 24.2 10^3/uL (4.4-10.8)
[2020-10-12 05:18] LABS: Albumin 1.6 g/dL (3.4-5.0); Calcium 6.3 mg/dL (8.5-10.1); Magnesium 1.8 mg/dL (1.6-2.6)
[2020-10-12 05:22] LABS: Lactic Acid w/Reflex 2.6 mmol/L (0.4-2.0)
[2020-10-12 05:24] LABS: Hemoglobin 6.9 g/dL (13.5-17.5)
[2020-10-12 05:25] LABS: Basophils % (manual) 0 (0.0-2.0); Blast Cells 0; Metamyelocytes % 0; Potassium 2.7 mmol/L (3.5-5.1); Promyelocytes % 0; Reactive Lymphocytes 0
[2020-10-12 05:33] LABS: BUN/Creatinine Ratio 17.3; Bilirubin, Total 1.7 mg/dL (0.2-1.0); Total Protein 5.3 g/dL (6.4-8.2)
[2020-10-12] MEDS: ACCU-CHEK COMFORT CURVE STRIP VI SCH ×4 (06:00→18:14)
[2020-10-12] MEDS: Glucerna Carbsteady SHAKE Stawberry 8oz PO SCH ×4 (06:00→21:45)
[2020-10-12] MEDS: InsuLIN REG 1unit/0.01ml Soln (100units/ml) SC SCH ×4 (06:00→18:14)
[2020-10-12 07:04] LABS: INR 1.32 (0.9-1.15)
[2020-10-12 07:40] LABS: Band Neutrophils % (manual) 11; Eosinophils % (manual) 2 (0-7); Lymphocytes % (manual) 9 (10.0-50.0); Monocytes % (manual) 2 (0-12); Myelocytes % 4
[2020-10-12] MEDS: CIPROFLOXACIN 400MG/200ML 200 ML IV SCH ×2 (08:37→20:12)
[2020-10-12 09:24] LABS: Hemoglobin 7.5 g/dL (13.5-17.5); Platelet Count (auto) 269 10^3/uL (140-450); Red Cell Distribution Width 16.3 % (11.8-14.3)
[2020-10-12 09:27] LABS: Hematocrit 22.5 % (41.0-53.0); Mean Corpuscular Hemoglobin 28.6 pg (28.0-32.0); Mean Corpuscular Hgb Conc. 33.3 g/dL (32.0-36.0); Mean Corpuscular Volume 85.8 fL (80.0-100.0); Red Blood Cells 2.62 10^6/uL (4.5-5.90); White Blood Cell 24.8 10^3/uL (4.4-10.8)
[2020-10-12 09:38] LABS: Basophils % (manual) 0 (0.0-2.0); Promyelocytes % 0; Reactive Lymphocytes 0
[2020-10-12] MEDS: CHOLECALCIFEROL (VITD3) 2,000 UNIT CAP/TAB PO SCH (10:00)
[2020-10-12 10:07] LABS: Albumin 1.7 g/dL (3.4-5.0); Calcium 6.9 mg/dL (8.5-10.1)
[2020-10-12 10:20] LABS: BUN/Creatinine Ratio 18.5; Bilirubin, Total 1.8 mg/dL (0.2-1.0); Total Protein 5.6 g/dL (6.4-8.2)
[2020-10-12] MEDS: MEROPENEM 500MG IVPB 50 ML IV SCH ×2 (10:22→21:44)
[2020-10-12] MEDS: SODIUM CHLOR 0.9% PF (SALINE LOCK) 10ML VIAL/SYR IV SCH ×2 (10:22→21:44)
[2020-10-12] MEDS: BACITRACIN TOP OINT 1 UD PKG TOP SCH ×2 (10:23→21:45)
[2020-10-12] MEDS: FLORASTOR (S. BOULARDII) 250 MG CAP PO SCH (10:23)
[2020-10-12] MEDS: ZINC SULFATE 220mg CAP or TAB PO SCH (10:23)
[2020-10-12] MEDS: ENOXAPARIN SOD 60 MG/0.6 ML SYRINGE SC SCH (10:23)
[2020-10-12 10:29] LABS: Potassium 2.9 mmol/L (3.5-5.1)
[2020-10-12] MEDS: SODIUM FERR GLUC 62.5MG/5ML 125 MG in SODIUM CHL 0.9% 100 ML IV SCH (11:25)
[2020-10-12 12:14] LABS: Band Neutrophils % (manual) 14; Blast Cells 1; Eosinophils % (manual) 2 (0-7); Lymphocytes % (manual) 12 (10.0-50.0); Metamyelocytes % 1; Monocytes % (manual) 2 (0-12); Myelocytes % 1
[2020-10-12] MEDS: MICAFUNGIN SODIUM 100 MG in SODIUM CHL 0.9% 100 ML IV SCH (12:49)
[2020-10-12] MEDS: POTASSIUM CHL 20MEQ/100ML 100 ML IV SCH ×3 (14:03→18:15)
[2020-10-12] MEDS: FAMOTIDINE (10MG/ML) 2ML VL IV SCH (21:44)
[2020-10-12] MEDS: ATORVASTATIN 20 MG TAB PO SCH (21:45)
[2020-10-12] MEDS: INSULIN LANTUS (GLARGINE) 1 /0.01ml (100units/ml) SC SCH (23:15)
[2020-10-13] VITALS (106 sets, daily range): BP systolic 101–165; BP diastolic 51–88
[2020-10-13] MEDS: LINEZOLID 600MG/300ML 300 ML IV SCH ×2 (02:00→13:56)
[2020-10-13 05:20] LABS: Hematocrit 21.1 % (41.0-53.0); Mean Corpuscular Hemoglobin 28.9 pg (28.0-32.0); Mean Corpuscular Hgb Conc. 33.2 g/dL (32.0-36.0); Mean Corpuscular Volume 87.3 fL (80.0-100.0); Platelet Count (auto) 233 10^3/uL (140-450); Red Blood Cells 2.42 10^6/uL (4.5-5.90); Red Cell Distribution Width 16.5 % (11.8-14.3); White Blood Cell 25.6 10^3/uL (4.4-10.8)
[2020-10-13 05:37] LABS: BUN/Creatinine Ratio 18.6; Calcium 7.1 mg/dL (8.5-10.1); Potassium 3.4 mmol/L (3.5-5.1)
[2020-10-13] MEDS: InsuLIN REG 1unit/0.01ml Soln (100units/ml) SC SCH ×4 (06:00→17:58)
[2020-10-13] MEDS: Glucerna Carbsteady SHAKE Stawberry 8oz PO SCH ×4 (06:00→22:00)
[2020-10-13] MEDS: ACCU-CHEK COMFORT CURVE STRIP VI SCH ×4 (06:00→18:00)
[2020-10-13 06:57] LABS: Basophils % (manual) 0 (0.0-2.0); Blast Cells 0; Metamyelocytes % 0; Promyelocytes % 0; Reactive Lymphocytes 0
[2020-10-13 08:25] LABS: Band Neutrophils % (manual) 19; Eosinophils % (manual) 1 (0-7); Lymphocytes % (manual) 12 (10.0-50.0); Monocytes % (manual) 3 (0-12); Myelocytes % 1
[2020-10-13] MEDS: CIPROFLOXACIN 400MG/200ML 200 ML IV SCH ×2 (08:27→20:00)
[2020-10-13] MEDS: CHOLECALCIFEROL (VITD3) 2,000 UNIT CAP/TAB PO SCH (10:00)
[2020-10-13] MEDS: ZINC SULFATE 220mg CAP or TAB PO SCH (10:14)
[2020-10-13] MEDS: MEROPENEM 500MG IVPB 50 ML IV SCH ×2 (10:14→22:00)
[2020-10-13] MEDS: FLORASTOR (S. BOULARDII) 250 MG CAP PO SCH (10:15)
[2020-10-13] MEDS: BACITRACIN TOP OINT 1 UD PKG TOP SCH ×2 (10:15→22:00)
[2020-10-13] MEDS: ENOXAPARIN SOD 60 MG/0.6 ML SYRINGE SC SCH (10:15)
[2020-10-13] MEDS: SODIUM CHLOR 0.9% PF (SALINE LOCK) 10ML VIAL/SYR IV SCH ×2 (10:15→22:00)
[2020-10-13] MEDS ORDERED: POTASSIUM CHL 20MEQ/100ML 100 ML IV ONE (11:00)
[2020-10-13] MEDS: MICAFUNGIN SODIUM 100 MG in SODIUM CHL 0.9% 100 ML IV SCH (12:56)
[2020-10-13] MEDS: SODIUM FERR GLUC 62.5MG/5ML 125 MG in SODIUM CHL 0.9% 100 ML IV SCH (12:58)
[2020-10-13] MEDS: INSULIN LANTUS (GLARGINE) 1 /0.01ml (100units/ml) SC SCH (22:00)
[2020-10-13] MEDS: ATORVASTATIN 20 MG TAB PO SCH (22:00)
[2020-10-14] VITALS (98 sets, daily range): BP systolic 120–188; BP diastolic 60–101
[2020-10-14] MEDS: ACCU-CHEK COMFORT CURVE STRIP VI SCH ×4 (00:23→18:00)
[2020-10-14] MEDS: LINEZOLID 600MG/300ML 300 ML IV SCH ×2 (02:00→14:21)
[2020-10-14] MEDS: Glucerna Carbsteady SHAKE Stawberry 8oz PO SCH ×4 (06:00→22:00)
[2020-10-14] MEDS: InsuLIN REG 1unit/0.01ml Soln (100units/ml) SC SCH ×4 (06:00→18:00)
[2020-10-14] MEDS: CIPROFLOXACIN 400MG/200ML 200 ML IV SCH ×2 (08:47→20:00)
[2020-10-14] MEDS: CHOLECALCIFEROL (VITD3) 2,000 UNIT CAP/TAB PO SCH (10:00)
[2020-10-14 10:05] LABS: Hematocrit 35.7 % (41.0-53.0); Mean Corpuscular Hemoglobin 29.4 pg (28.0-32.0); Mean Corpuscular Hgb Conc. 33.6 g/dL (32.0-36.0); Mean Corpuscular Volume 87.5 fL (80.0-100.0); Platelet Count (auto) 212 10^3/uL (140-450); Red Blood Cells 4.08 10^6/uL (4.5-5.90); Red Cell Distribution Width 15.6 % (11.8-14.3); White Blood Cell 25.4 10^3/uL (4.4-10.8)
[2020-10-14] MEDS: MEROPENEM 500MG IVPB 50 ML IV SCH ×2 (10:07→22:00)
[2020-10-14] MEDS: SODIUM CHLOR 0.9% PF (SALINE LOCK) 10ML VIAL/SYR IV SCH ×2 (10:07→22:00)
[2020-10-14] MEDS: ZINC SULFATE 220mg CAP or TAB PO SCH (10:08)
[2020-10-14] MEDS: FLORASTOR (S. BOULARDII) 250 MG CAP PO SCH (10:08)
[2020-10-14] MEDS: BACITRACIN TOP OINT 1 UD PKG TOP SCH ×2 (10:09→22:00)
[2020-10-14 10:13] LABS: Calcium 7.5 mg/dL (8.5-10.1); Potassium 3.1 mmol/L (3.5-5.1)
[2020-10-14 10:16] LABS: BUN/Creatinine Ratio 18.8
[2020-10-14 10:35] LABS: Basophils % (manual) 0 (0.0-2.0); Blast Cells 0; Metamyelocytes % 0; Myelocytes % 0; Promyelocytes % 0; Reactive Lymphocytes 0
[2020-10-14] MEDS: SODIUM FERR GLUC 62.5MG/5ML 125 MG in SODIUM CHL 0.9% 100 ML IV SCH (12:00)
[2020-10-14] MEDS: MICAFUNGIN SODIUM 100 MG in SODIUM CHL 0.9% 100 ML IV SCH (12:35)
[2020-10-14 15:03] LABS: Band Neutrophils % (manual) 8; Eosinophils % (manual) 2 (0-7); Lymphocytes % (manual) 8 (10.0-50.0); Monocytes % (manual) 8 (0-12)
[2020-10-14] MEDS ORDERED: POTASSIUM CHLORIDE 40 MEQ, LIDOCAINE 1% (LOCAL ANESTH.) 4 ML in SODIUM CHL 0.9% 250 ML IV ONE (17:15)
[2020-10-14] MEDS: POTASSIUM CHL 20MEQ/100ML 100 ML IV SCH ×2 (18:30→19:30)
[2020-10-14] MEDS: ATORVASTATIN 20 MG TAB PO SCH (22:00)
[2020-10-14] MEDS: FAMOTIDINE (10MG/ML) 2ML VL IV SCH (22:00)
[2020-10-14] MEDS: INSULIN LANTUS (GLARGINE) 1 /0.01ml (100units/ml) SC SCH (22:00)
[2020-10-15] VITALS (97 sets, daily range): BP systolic 124–166; BP diastolic 65–90
[2020-10-15] MEDS: LINEZOLID 600MG/300ML 300 ML IV SCH ×2 (02:00→14:12)
[2020-10-15 05:17] LABS: Potassium 3.4 mmol/L (3.5-5.1)
[2020-10-15 05:20] LABS: Hemoglobin 11.2 g/dL (13.5-17.5); Mean Corpuscular Hemoglobin 28.7 pg (28.0-32.0); Platelet Count (auto) 187 10^3/uL (140-450); Red Blood Cells 3.91 10^6/uL (4.5-5.90); Red Cell Distribution Width 15.6 % (11.8-14.3); White Blood Cell 25.8 10^3/uL (4.4-10.8)
[2020-10-15 05:23] LABS: Band Neutrophils % (manual) 0; Basophils % (manual) 0 (0.0-2.0); Blast Cells 0; Metamyelocytes % 0; Myelocytes % 0; Promyelocytes % 0; Reactive Lymphocytes 0
[2020-10-15 05:26] LABS: INR 1.23 (0.9-1.15)
[2020-10-15 05:35] LABS: Albumin 1.6 g/dL (3.4-5.0); BUN/Creatinine Ratio 18.7; Bilirubin, Total 4.7 mg/dL (0.2-1.0); Calcium 7.4 mg/dL (8.5-10.1); Magnesium 1.7 mg/dL (1.6-2.6); Total Protein 5.7 g/dL (6.4-8.2)
[2020-10-15] MEDS: ACCU-CHEK COMFORT CURVE STRIP VI SCH ×4 (05:47→17:45)
[2020-10-15] MEDS: InsuLIN REG 1unit/0.01ml Soln (100units/ml) SC SCH ×4 (05:48→17:44)
[2020-10-15] MEDS: Glucerna Carbsteady SHAKE Stawberry 8oz PO SCH ×4 (06:00→21:36)
[2020-10-15 06:52] LABS: Eosinophils % (manual) 1 (0-7); Lymphocytes % (manual) 19 (10.0-50.0); Monocytes % (manual) 5 (0-12)
[2020-10-15] MEDS: CIPROFLOXACIN 400MG/200ML 200 ML IV SCH ×2 (08:13→19:47)
[2020-10-15] MEDS: SODIUM CHLOR 0.9% PF (SALINE LOCK) 10ML VIAL/SYR IV SCH ×2 (09:56→21:40)
[2020-10-15] MEDS: ZINC SULFATE 220mg CAP or TAB PO SCH (09:56)
[2020-10-15] MEDS: MEROPENEM 500MG IVPB 50 ML IV SCH ×2 (09:56→21:40)
[2020-10-15] MEDS: BACITRACIN TOP OINT 1 UD PKG TOP SCH ×2 (09:57→21:42)
[2020-10-15] MEDS: CHOLECALCIFEROL (VITD3) 2,000 UNIT CAP/TAB PO SCH (09:57)
[2020-10-15] MEDS: FLORASTOR (S. BOULARDII) 250 MG CAP PO SCH (09:57)
[2020-10-15] MEDS ORDERED: POTASSIUM EFFERVESENT TAB 25 MEQ GT ONE (10:15)
[2020-10-15] MEDS: SODIUM FERR GLUC 62.5MG/5ML 125 MG in SODIUM CHL 0.9% 100 ML IV SCH (11:45)
[2020-10-15] MEDS ORDERED: MAGNESIUM SULFATE 1GM/100ML 100 ML IV ONE (13:15)
[2020-10-15] MEDS: MICAFUNGIN SODIUM 100 MG in SODIUM CHL 0.9% 100 ML IV SCH (13:16)
[2020-10-15] MEDS ORDERED: METOPROLOL TARTRATE 1MG/1ML-5ML VIAL IV ONE (14:30)
[2020-10-15] MEDS: DEXTROSE (50%) 50ML SYRG IV SCH (17:45)
[2020-10-15] MEDS: ATORVASTATIN 20 MG TAB PO SCH (21:36)
[2020-10-15] MEDS: INSULIN LANTUS (GLARGINE) 1 /0.01ml (100units/ml) SC SCH (21:41)
[2020-10-16] VITALS (81 sets, daily range): BP systolic 131–184; BP diastolic 71–107
[2020-10-16] MEDS: LINEZOLID 600MG/300ML 300 ML IV SCH (02:09)
[2020-10-16 05:14] LABS: Basophils # (auto) 0.2 10 ^3/uL (0-0.2); Eosinophils # (auto) 0.7 10 ^3/uL (0-0.8); Eosinophils % (auto) 3.4 % (0.0-7.0); Hematocrit 36.2 % (41.0-53.0); Hemoglobin 12.5 g/dL (13.5-17.5); Lymphocytes # (auto) 3.8 10 ^3/uL (0.4-5.4); Lymphocytes % (auto) 17.3 % (10.0-50.0); Mean Corpuscular Hgb Conc. 34.4 g/dL (32.0-36.0); Mean Corpuscular Volume 87.2 fL (80.0-100.0); Monocytes # (auto) 1.2 10 ^3/uL (0-1.3); Monocytes % (auto) 5.4 % (0.0-12.0); Neutrophils # (auto) 16.1 10 ^3/uL (1.6-8.6); Neutrophils % (auto) 72.9 % (37.0-80.0); Platelet Count (auto) 134 10^3/uL (140-450); Red Blood Cells 4.15 10^6/uL (4.5-5.90); Red Cell Distribution Width 15.8 % (11.8-14.3); White Blood Cell 22.1 10^3/uL (4.4-10.8)
[2020-10-16 05:24] LABS: Potassium 3.8 mmol/L (3.5-5.1)
[2020-10-16] MEDS: ACCU-CHEK COMFORT CURVE STRIP VI SCH ×4 (05:30→18:25)
[2020-10-16] MEDS: InsuLIN REG 1unit/0.01ml Soln (100units/ml) SC SCH ×4 (05:38→18:25)
[2020-10-16] MEDS: Glucerna Carbsteady SHAKE Stawberry 8oz PO SCH ×4 (05:39→22:00)
[2020-10-16 05:50] LABS: Albumin 1.7 g/dL (3.4-5.0); BUN/Creatinine Ratio 16.3; Bilirubin, Total 4.6 mg/dL (0.2-1.0); Calcium 7.5 mg/dL (8.5-10.1); Magnesium 1.7 mg/dL (1.6-2.6); Total Protein 6.2 g/dL (6.4-8.2)
[2020-10-16] MEDS: CIPROFLOXACIN 400MG/200ML 200 ML IV SCH (08:19)
[2020-10-16] MEDS: ZINC SULFATE 220mg CAP or TAB PO SCH (09:36)
[2020-10-16] MEDS: MEROPENEM 500MG IVPB 50 ML IV SCH (09:36)
[2020-10-16] MEDS: FLORASTOR (S. BOULARDII) 250 MG CAP PO SCH (09:36)
[2020-10-16] MEDS: CHOLECALCIFEROL (VITD3) 2,000 UNIT CAP/TAB PO SCH (09:36)
[2020-10-16] MEDS: BACITRACIN TOP OINT 1 UD PKG TOP SCH ×2 (09:37→22:00)
[2020-10-16] MEDS: SODIUM CHLOR 0.9% PF (SALINE LOCK) 10ML VIAL/SYR IV SCH ×2 (09:37→22:00)
[2020-10-16] MEDS: SODIUM FERR GLUC 62.5MG/5ML 125 MG in SODIUM CHL 0.9% 100 ML IV SCH (12:02)
[2020-10-16] MEDS ORDERED: METOPROLOL TARTRATE 1MG/1ML-5ML VIAL IV ONE (12:15)
[2020-10-16] MEDS: MICAFUNGIN SODIUM 100 MG in SODIUM CHL 0.9% 100 ML IV SCH (13:26)
[2020-10-16] MEDS ORDERED: METOPROLOL TARTRATE 25 MG TAB PO ONE (14:00)
[2020-10-16] MEDS ORDERED: amLODIPine BESYLATE 5 MG TAB PO ONE (16:15)
[2020-10-16] MEDS ORDERED: MAGNESIUM SULFATE 1GM/100ML 100 ML IV ONE (16:15)
[2020-10-16] MEDS: ERGOCALCIFEROL 50,000 UNIT(1.25MG) CAP PO SCH (17:15)
[2020-10-16] MEDS: levoFLOXacin 750MG 150 ML IV SCH (17:29)
[2020-10-16] MEDS: ENOXAPARIN SOD 30 MG/0.3 ML SYRINGE SC SCH (17:29)
[2020-10-16] MEDS: METOPROLOL TARTRATE 25 MG TAB NG SCH (22:00)
[2020-10-16] MEDS: FAMOTIDINE (10MG/ML) 2ML VL IV SCH (22:00)
[2020-10-16] MEDS: ATORVASTATIN 20 MG TAB PO SCH (22:00)
[2020-10-16] MEDS: SODIUM CHL 0.9% IV SCH (22:00)
[2020-10-16] MEDS: INSULIN LANTUS (GLARGINE) 1 /0.01ml (100units/ml) SC SCH (22:00)
[2020-10-16] MEDS ORDERED: METOPROLOL TARTRATE 25 MG TAB NG SCH (22:00)
[2020-10-16] MEDS: CEFTAZIDIME AVIBACTAM IV SCH (22:00)
[2020-10-17] VITALS (37 sets, daily range): BP systolic 118–157; BP diastolic 36–91
[2020-10-17 04:24] LABS: Basophils # (auto) 0.2 10 ^3/uL (0-0.2); Basophils % (auto) 0.8 % (0.0-2.0); Eosinophils # (auto) 0.9 10 ^3/uL (0-0.8); Eosinophils % (auto) 3.9 % (0.0-7.0); Hematocrit 35.1 % (41.0-53.0); Lymphocytes # (auto) 2.8 10 ^3/uL (0.4-5.4); Lymphocytes % (auto) 12.4 % (10.0-50.0); Mean Corpuscular Hemoglobin 29.9 pg (28.0-32.0); Mean Corpuscular Hgb Conc. 34.2 g/dL (32.0-36.0); Mean Corpuscular Volume 87.4 fL (80.0-100.0); Monocytes # (auto) 0.8 10 ^3/uL (0-1.3); Monocytes % (auto) 3.5 % (0.0-12.0); Neutrophils # (auto) 18.1 10 ^3/uL (1.6-8.6); Neutrophils % (auto) 79.4 % (37.0-80.0); Nucleated Red Blood Cells % 0.1 %; Platelet Count (auto) 106 10^3/uL (140-450); Red Blood Cells 4.02 10^6/uL (4.5-5.90); Red Cell Distribution Width 15.6 % (11.8-14.3); White Blood Cell 22.8 10^3/uL (4.4-10.8)
[2020-10-17 04:45] LABS: Albumin 1.6 g/dL (3.4-5.0); Calcium 7.5 mg/dL (8.5-10.1); Magnesium 1.8 mg/dL (1.6-2.6); Potassium 3.7 mmol/L (3.5-5.1)
[2020-10-17 04:47] LABS: INR 1.16 (0.9-1.15)
[2020-10-17 04:54] LABS: BUN/Creatinine Ratio 18.8; Bilirubin, Total 5.3 mg/dL (0.2-1.0); CRP High Sensitivity 9.8 mg/dL (< 0.3); Total Protein 6.2 g/dL (6.4-8.2)
[2020-10-17] MEDS: Glucerna Carbsteady SHAKE Stawberry 8oz PO SCH ×4 (05:29→22:00)
[2020-10-17] MEDS: CEFTAZIDIME AVIBACTAM IV SCH ×3 (05:57→22:50)
[2020-10-17] MEDS: SODIUM CHL 0.9% IV SCH ×3 (05:57→22:50)
[2020-10-17] MEDS: InsuLIN REG 1unit/0.01ml Soln (100units/ml) SC SCH ×5 (06:00→23:54)
[2020-10-17] MEDS: ACCU-CHEK COMFORT CURVE STRIP VI SCH ×5 (06:01→23:54)
[2020-10-17] MEDS: FLORASTOR (S. BOULARDII) 250 MG CAP PO SCH (10:00)
[2020-10-17] MEDS: CHOLECALCIFEROL (VITD3) 2,000 UNIT CAP/TAB PO SCH (10:00)
[2020-10-17] MEDS: BACITRACIN TOP OINT 1 UD PKG TOP SCH ×2 (10:00→22:48)
[2020-10-17] MEDS: METOPROLOL TARTRATE 25 MG TAB NG SCH ×2 (10:00→22:47)
[2020-10-17] MEDS: ENOXAPARIN SOD 30 MG/0.3 ML SYRINGE SC SCH (10:00)
[2020-10-17] MEDS: ZINC SULFATE 220mg CAP or TAB PO SCH (10:00)
[2020-10-17] MEDS: amLODIPine BESYLATE 5 MG TAB PO SCH (10:00)
[2020-10-17] MEDS: SODIUM CHLOR 0.9% PF (SALINE LOCK) 10ML VIAL/SYR IV SCH ×2 (10:00→22:47)
[2020-10-17] MEDS ORDERED: FUROSEMIDE 40 MG/4 ML VIAL IV ONE (11:00)
[2020-10-17] MEDS: ALBUMIN 25% 50 ML IV SCH ×2 (12:15→20:15)
[2020-10-17] MEDS ORDERED: MAGNESIUM SULFATE 1GM/100ML 100 ML IV ONE (12:15)
[2020-10-17] MEDS: SODIUM FERR GLUC 62.5MG/5ML 125 MG in SODIUM CHL 0.9% 100 ML IV SCH (18:04)
[2020-10-17] MEDS: levoFLOXacin 750MG 150 ML IV SCH (19:00)
[2020-10-17] MEDS: ATORVASTATIN 20 MG TAB PO SCH (22:48)
[2020-10-17] MEDS: INSULIN LANTUS (GLARGINE) 1 /0.01ml (100units/ml) SC SCH (22:49)
[2020-10-18] VITALS (37 sets, daily range): BP systolic 104–155; BP diastolic 54–100
[2020-10-18] MEDS: ALBUMIN 25% 50 ML IV SCH ×3 (04:47→19:57)
[2020-10-18 04:58] LABS: Basophils # (auto) 0.2 10 ^3/uL (0-0.2); Basophils % (auto) 1.1 % (0.0-2.0); Eosinophils # (auto) 0.9 10 ^3/uL (0-0.8); Eosinophils % (auto) 4.4 % (0.0-7.0); Hematocrit 30.8 % (41.0-53.0); Hemoglobin 10.1 g/dL (13.5-17.5); Lymphocytes # (auto) 3.1 10 ^3/uL (0.4-5.4); Lymphocytes % (auto) 15.9 % (10.0-50.0); Mean Corpuscular Hemoglobin 29.7 pg (28.0-32.0); Mean Corpuscular Hgb Conc. 32.8 g/dL (32.0-36.0); Mean Corpuscular Volume 90.5 fL (80.0-100.0); Monocytes # (auto) 0.9 10 ^3/uL (0-1.3); Monocytes % (auto) 4.7 % (0.0-12.0); Neutrophils # (auto) 14.6 10 ^3/uL (1.6-8.6); Neutrophils % (auto) 73.9 % (37.0-80.0); Platelet Count (auto) 73 10^3/uL (140-450); Red Cell Distribution Width 16.4 % (11.8-14.3); White Blood Cell 19.8 10^3/uL (4.4-10.8)
[2020-10-18 05:21] LABS: Potassium 3.9 mmol/L (3.5-5.1)
[2020-10-18] MEDS: ACCU-CHEK COMFORT CURVE STRIP VI SCH ×3 (05:23→17:55)
[2020-10-18] MEDS: Glucerna Carbsteady SHAKE Stawberry 8oz PO SCH ×4 (05:23→21:42)
[2020-10-18] MEDS: InsuLIN REG 1unit/0.01ml Soln (100units/ml) SC SCH ×3 (05:23→17:54)
[2020-10-18 05:41] LABS: Albumin 1.8 g/dL (3.4-5.0); Bilirubin, Direct 2.5 mg/dL (0-0.2); Bilirubin, Total 3.8 mg/dL (0.2-1.0); Magnesium 1.7 mg/dL (1.6-2.6); Total Protein 6.1 g/dL (6.4-8.2)
[2020-10-18] MEDS: CEFTAZIDIME AVIBACTAM IV SCH (09:23)
[2020-10-18] MEDS: SODIUM CHL 0.9% IV SCH ×3 (09:23→21:41)
[2020-10-18] MEDS: SODIUM CHLOR 0.9% PF (SALINE LOCK) 10ML VIAL/SYR IV SCH ×2 (09:30→21:40)
[2020-10-18] MEDS: amLODIPine BESYLATE 5 MG TAB PO SCH (09:31)
[2020-10-18] MEDS: FLORASTOR (S. BOULARDII) 250 MG CAP PO SCH (09:31)
[2020-10-18] MEDS: METOPROLOL TARTRATE 25 MG TAB NG SCH ×2 (09:31→21:41)
[2020-10-18] MEDS: CHOLECALCIFEROL (VITD3) 2,000 UNIT CAP/TAB PO SCH (09:32)
[2020-10-18] MEDS: ENOXAPARIN SOD 30 MG/0.3 ML SYRINGE SC SCH (09:32)
[2020-10-18] MEDS: BACITRACIN TOP OINT 1 UD PKG TOP SCH ×2 (09:32→21:42)
[2020-10-18] MEDS ORDERED: MAGNESIUM SULFATE 1GM/100ML 100 ML IV ONE (11:30)
[2020-10-18] MEDS ORDERED: POTASSIUM CHL 20MEQ/100ML 100 ML IV ONE (11:30)
[2020-10-18] MEDS: SODIUM FERR GLUC 62.5MG/5ML 125 MG in SODIUM CHL 0.9% 100 ML IV SCH (11:34)
[2020-10-18] MEDS: MEROPENEM VABORBACTAM IV SCH ×2 (14:53→21:41)
[2020-10-18] MEDS ORDERED: SODIUM CHL 0.9% IV SCH (15:00)
[2020-10-18] MEDS ORDERED: MEROPENEM VABORBACTAM IV SCH (15:00)
[2020-10-18] MEDS: levoFLOXacin 750MG 150 ML IV SCH (17:02)
[2020-10-18] MEDS: FAMOTIDINE (10MG/ML) 2ML VL IV SCH (21:40)
[2020-10-18] MEDS: ATORVASTATIN 20 MG TAB PO SCH (21:42)
[2020-10-19] VITALS (56 sets, daily range): BP systolic 86–219; BP diastolic 43–183
[2020-10-19] MEDS: ALBUMIN 25% 50 ML IV SCH (03:30)
[2020-10-19] MEDS ORDERED: NOREPINEPHRINE 8 MG/250ML KIT 250 ML IV ONE (04:39)
[2020-10-19] MEDS ORDERED: NOREPINEPHRINE 8 MG/250ML KIT 250 ML IV SCH (04:45)
[2020-10-19] MEDS: Glucerna Carbsteady SHAKE Stawberry 8oz PO SCH ×4 (05:22→22:00)
[2020-10-19] MEDS: SODIUM CHL 0.9% IV SCH ×3 (05:23→22:00)
[2020-10-19] MEDS: MEROPENEM VABORBACTAM IV SCH ×3 (05:23→22:00)
[2020-10-19] MEDS: InsuLIN REG 1unit/0.01ml Soln (100units/ml) SC SCH ×4 (05:52→18:00)
[2020-10-19] MEDS: ACCU-CHEK COMFORT CURVE STRIP VI SCH ×4 (05:52→18:24)
[2020-10-19 05:59] LABS: Basophils # (auto) 0.2 10 ^3/uL (0-0.2); Basophils % (auto) 1.1 % (0.0-2.0); Eosinophils # (auto) 0.7 10 ^3/uL (0-0.8); Hemoglobin 8.5 g/dL (13.5-17.5); Lymphocytes # (auto) 1.8 10 ^3/uL (0.4-5.4)
[2020-10-19 06:01] LABS: Eosinophils % (auto) 4.3 % (0.0-7.0); Hematocrit 25.4 % (41.0-53.0); Lymphocytes % (auto) 10.7 % (10.0-50.0); Mean Corpuscular Hemoglobin 29.8 pg (28.0-32.0); Mean Corpuscular Hgb Conc. 33.3 g/dL (32.0-36.0); Mean Corpuscular Volume 89.3 fL (80.0-100.0); Monocytes % (auto) 5.6 % (0.0-12.0); Neutrophils # (auto) 13.6 10 ^3/uL (1.6-8.6); Neutrophils % (auto) 78.3 % (37.0-80.0); Platelet Count (auto) 57 10^3/uL (140-450); Red Blood Cells 2.84 10^6/uL (4.5-5.90); Red Cell Distribution Width 16.2 % (11.8-14.3); White Blood Cell 17.3 10^3/uL (4.4-10.8)
[2020-10-19 06:12] LABS: Potassium 3.4 mmol/L (3.5-5.1)
[2020-10-19 07:09] LABS: Albumin 1.9 g/dL (3.4-5.0); Bilirubin, Direct 1.9 mg/dL (0-0.2); Bilirubin, Total 2.5 mg/dL (0.2-1.0); Total Protein 5.5 g/dL (6.4-8.2)
[2020-10-19] MEDS: SODIUM CHLOR 0.9% PF (SALINE LOCK) 10ML VIAL/SYR IV SCH ×2 (10:00→22:00)
[2020-10-19] MEDS: FLORASTOR (S. BOULARDII) 250 MG CAP PO SCH (10:00)
[2020-10-19] MEDS: amLODIPine BESYLATE 5 MG TAB PO SCH (10:00)
[2020-10-19] MEDS: METOPROLOL TARTRATE 25 MG TAB NG SCH ×2 (10:00→22:00)
[2020-10-19] MEDS: CHOLECALCIFEROL (VITD3) 2,000 UNIT CAP/TAB PO SCH (10:00)
[2020-10-19] MEDS: ENOXAPARIN SOD 30 MG/0.3 ML SYRINGE SC SCH (10:01)
[2020-10-19] MEDS: BACITRACIN TOP OINT 1 UD PKG TOP SCH ×2 (10:02→22:00)
[2020-10-19] MEDS: SODIUM FERR GLUC 62.5MG/5ML 125 MG in SODIUM CHL 0.9% 100 ML IV SCH (12:17)
[2020-10-19] MEDS: levoFLOXacin 750MG 150 ML IV SCH (17:00)
[2020-10-19] MEDS: DEXTROSE (50%) 50ML SYRG IV SCH (18:24)
[2020-10-19] MEDS ORDERED: EPINEPHrine HCL 0.5 ML NEB ONE (19:27)
[2020-10-19] MEDS ORDERED: EPINEPHrine HCL 0.5 ML NEB NEB ONE (19:30)
[2020-10-19] MEDS: ALBUTEROL SULF 2.5 MG/0.5ML(0.5%) NEB SOLN NEB PRN (21:45)
[2020-10-19] MEDS: ATORVASTATIN 20 MG TAB PO SCH (22:00)
[2020-10-20] VITALS (86 sets, daily range): BP systolic 89–156; BP diastolic 51–89
[2020-10-20] MEDS ORDERED: LORazepam 2MG/ML-1ML VIAL ONE (01:08)
[2020-10-20 05:57] LABS: Basophils # (auto) 0.2 10 ^3/uL (0-0.2); Basophils % (auto) 1.1 % (0.0-2.0); Lymphocytes # (auto) 1.4 10 ^3/uL (0.4-5.4); Mean Corpuscular Hemoglobin 29.8 pg (28.0-32.0)
[2020-10-20] MEDS: Glucerna Carbsteady SHAKE Stawberry 8oz PO SCH ×4 (06:00→22:00)
[2020-10-20] MEDS: InsuLIN REG 1unit/0.01ml Soln (100units/ml) SC SCH ×4 (06:00→18:00)
[2020-10-20 06:02] LABS: Eosinophils # (auto) 1.4 10 ^3/uL (0-0.8); Eosinophils % (auto) 8.2 % (0.0-7.0); Hematocrit 24.9 % (41.0-53.0); Hemoglobin 8.4 g/dL (13.5-17.5); Lymphocytes % (auto) 8.3 % (10.0-50.0); Mean Corpuscular Hgb Conc. 33.7 g/dL (32.0-36.0); Mean Corpuscular Volume 88.4 fL (80.0-100.0); Monocytes # (auto) 1.1 10 ^3/uL (0-1.3); Monocytes % (auto) 6.6 % (0.0-12.0); Neutrophils # (auto) 12.4 10 ^3/uL (1.6-8.6); Neutrophils % (auto) 75.8 % (37.0-80.0); Platelet Count (auto) 56 10^3/uL (140-450); Red Blood Cells 2.82 10^6/uL (4.5-5.90); Red Cell Distribution Width 16.3 % (11.8-14.3); White Blood Cell 16.4 10^3/uL (4.4-10.8)
[2020-10-20] MEDS: ACCU-CHEK COMFORT CURVE STRIP VI SCH ×4 (06:13→18:07)
[2020-10-20 06:17] LABS: INR 1.19 (0.9-1.15); Partial Thromboplastin Time 67.7 sec (23.0-31.2)
[2020-10-20] MEDS: ALBUTEROL SULF 2.5 MG/0.5ML(0.5%) NEB SOLN NEB PRN ×3 (06:25→21:02)
[2020-10-20 06:39] LABS: BUN/Creatinine Ratio 23.3; Calcium 7.5 mg/dL (8.5-10.1); Phosphorus 2.3 mg/dL (2.5-4.90)
[2020-10-20 06:50] LABS: Bilirubin, Total 1.6 mg/dL (0.2-1.0); Magnesium 1.8 mg/dL (1.6-2.6); Total Protein 5.6 g/dL (6.4-8.2)
[2020-10-20 07:56] LABS: Potassium 3.2 mmol/L (3.5-5.1)
[2020-10-20] MEDS: SODIUM CHLOR 0.9% PF (SALINE LOCK) 10ML VIAL/SYR IV SCH ×2 (10:00→22:00)
[2020-10-20] MEDS: FLORASTOR (S. BOULARDII) 250 MG CAP PO SCH (10:10)
[2020-10-20] MEDS: CHOLECALCIFEROL (VITD3) 2,000 UNIT CAP/TAB PO SCH (10:10)
[2020-10-20] MEDS: amLODIPine BESYLATE 5 MG TAB PO SCH (10:10)
[2020-10-20] MEDS: METOPROLOL TARTRATE 25 MG TAB NG SCH ×2 (10:10→22:00)
[2020-10-20] MEDS: ENOXAPARIN SOD 30 MG/0.3 ML SYRINGE SC SCH (10:10)
[2020-10-20] MEDS: BACITRACIN TOP OINT 1 UD PKG TOP SCH ×2 (10:10→22:00)
[2020-10-20] MEDS: SODIUM FERR GLUC 62.5MG/5ML 125 MG in SODIUM CHL 0.9% 100 ML IV SCH (12:15)
[2020-10-20] MEDS: MEROPENEM VABORBACTAM IV SCH ×3 (14:00→22:00)
[2020-10-20] MEDS: SODIUM CHL 0.9% IV SCH ×3 (14:00→22:00)
[2020-10-20] MEDS ORDERED: POTASSIUM EFFERVESENT TAB 25 MEQ GT ONE (15:30)
[2020-10-20] MEDS: levoFLOXacin 750MG 150 ML IV SCH (17:00)
[2020-10-20] MEDS: FAMOTIDINE (10MG/ML) 2ML VL IV SCH (22:00)
[2020-10-20] MEDS: ATORVASTATIN 20 MG TAB PO SCH (22:00)
[2020-10-21] VITALS (55 sets, daily range): BP systolic 84–140; BP diastolic 29–101
[2020-10-21] MEDS: SODIUM CHL 0.9% IV SCH ×3 (05:59→22:23)
[2020-10-21] MEDS: MEROPENEM VABORBACTAM IV SCH ×3 (05:59→22:23)
[2020-10-21] MEDS: Glucerna Carbsteady SHAKE Stawberry 8oz PO SCH ×4 (06:00→22:24)
[2020-10-21] MEDS: InsuLIN REG 1unit/0.01ml Soln (100units/ml) SC SCH ×4 (06:00→18:00)
[2020-10-21] MEDS: ACCU-CHEK COMFORT CURVE STRIP VI SCH ×4 (06:06→18:19)
[2020-10-21] MEDS: ALBUTEROL SULF 2.5 MG/0.5ML(0.5%) NEB SOLN NEB PRN (07:05)
[2020-10-21] MEDS: BACITRACIN TOP OINT 1 UD PKG TOP SCH ×2 (10:00→22:25)
[2020-10-21] MEDS: METOPROLOL TARTRATE 25 MG TAB NG SCH ×3 (11:12→23:24)
[2020-10-21] MEDS: SODIUM CHLOR 0.9% PF (SALINE LOCK) 10ML VIAL/SYR IV SCH ×2 (11:12→22:23)
[2020-10-21] MEDS: CHOLECALCIFEROL (VITD3) 2,000 UNIT CAP/TAB PO SCH (11:13)
[2020-10-21] MEDS: amLODIPine BESYLATE 5 MG TAB PO SCH (11:13)
[2020-10-21] MEDS: ENOXAPARIN SOD 30 MG/0.3 ML SYRINGE SC SCH (11:13)
[2020-10-21] MEDS: FLORASTOR (S. BOULARDII) 250 MG CAP PO SCH (11:13)
[2020-10-21] MEDS: SODIUM FERR GLUC 62.5MG/5ML 125 MG in SODIUM CHL 0.9% 100 ML IV SCH (14:35)
[2020-10-21] MEDS ORDERED: MAGNESIUM SULFATE 1GM/100ML 100 ML IV ONE (15:45)
[2020-10-21] MEDS: levoFLOXacin 750MG 150 ML IV SCH (19:59)
[2020-10-21] MEDS: ATORVASTATIN 20 MG TAB PO SCH (22:25)
[2020-10-22] VITALS (38 sets, daily range): BP systolic 94–135; BP diastolic 46–71
[2020-10-22 04:53] LABS: Basophils # (auto) 0.2 10 ^3/uL (0-0.2); Eosinophils # (auto) 1.8 10 ^3/uL (0-0.8); Hemoglobin 8.2 g/dL (13.5-17.5); Red Blood Cells 2.74 10^6/uL (4.5-5.90)
[2020-10-22 04:57] LABS: Basophils % (auto) 0.9 % (0.0-2.0); Eosinophils % (auto) 7.7 % (0.0-7.0); Lymphocytes # (auto) 3.5 10 ^3/uL (0.4-5.4); Lymphocytes % (auto) 14.6 % (10.0-50.0); Mean Corpuscular Hemoglobin 29.9 pg (28.0-32.0); Mean Corpuscular Hgb Conc. 34.2 g/dL (32.0-36.0); Mean Corpuscular Volume 87.4 fL (80.0-100.0); Monocytes # (auto) 2.4 10 ^3/uL (0-1.3); Neutrophils # (auto) 15.9 10 ^3/uL (1.6-8.6); Neutrophils % (auto) 66.8 % (37.0-80.0); Platelet Count (auto) 62 10^3/uL (140-450); Red Cell Distribution Width 16.5 % (11.8-14.3); White Blood Cell 23.8 10^3/uL (4.4-10.8)
[2020-10-22 05:01] LABS: Magnesium 1.9 mg/dL (1.6-2.6); Potassium 3.1 mmol/L (3.5-5.1)
[2020-10-22] MEDS: ACCU-CHEK COMFORT CURVE STRIP VI SCH ×4 (06:00→17:30)
[2020-10-22] MEDS: Glucerna Carbsteady SHAKE Stawberry 8oz PO SCH ×4 (06:00→22:00)
[2020-10-22] MEDS: SODIUM CHL 0.9% IV SCH ×3 (06:00→22:00)
[2020-10-22] MEDS: InsuLIN REG 1unit/0.01ml Soln (100units/ml) SC SCH ×4 (06:00→17:30)
[2020-10-22] MEDS: MEROPENEM VABORBACTAM IV SCH ×3 (06:00→22:00)
[2020-10-22] MEDS: ALBUTEROL SULF 2.5 MG/0.5ML(0.5%) NEB SOLN NEB PRN (06:20)
[2020-10-22] MEDS: POTASSIUM CHL 20MEQ/100ML 100 ML IV SCH ×3 (09:08→11:19)
[2020-10-22] MEDS: SODIUM CHLOR 0.9% PF (SALINE LOCK) 10ML VIAL/SYR IV SCH ×2 (10:20→22:00)
[2020-10-22] MEDS: amLODIPine BESYLATE 5 MG TAB PO SCH (10:21)
[2020-10-22] MEDS: FLORASTOR (S. BOULARDII) 250 MG CAP PO SCH (10:21)
[2020-10-22] MEDS: BACITRACIN TOP OINT 1 UD PKG TOP SCH ×2 (10:21→22:00)
[2020-10-22] MEDS: CHOLECALCIFEROL (VITD3) 2,000 UNIT CAP/TAB PO SCH (10:21)
[2020-10-22] MEDS: ENOXAPARIN SOD 30 MG/0.3 ML SYRINGE SC SCH (10:21)
[2020-10-22] MEDS: SODIUM FERR GLUC 62.5MG/5ML 125 MG in SODIUM CHL 0.9% 100 ML IV SCH (11:49)
[2020-10-22] MEDS: LORazepam 2MG/ML-1ML VIAL IV PRN ×2 (11:57→16:48)
[2020-10-22] MEDS ORDERED: MAGNESIUM SULFATE 1GM/100ML 100 ML IV ONE (15:00)
[2020-10-22] MEDS ORDERED: POTASSIUM CHL 20MEQ/100ML 100 ML IV SCH (15:00)
[2020-10-22] MEDS: levoFLOXacin 750MG 150 ML IV SCH (17:20)
[2020-10-22] MEDS: METOPROLOL TARTRATE 25 MG TAB NG SCH (22:00)
[2020-10-22] MEDS: ATORVASTATIN 20 MG TAB PO SCH (22:00)
[2020-10-22] MEDS: FAMOTIDINE (10MG/ML) 2ML VL IV SCH (22:00)
[2020-10-23] VITALS (33 sets, daily range): BP systolic 107–138; BP diastolic 51–69
[2020-10-23 05:41] LABS: Hemoglobin 7.6 g/dL (13.5-17.5); Mean Corpuscular Hemoglobin 29.6 pg (28.0-32.0); Red Cell Distribution Width 16.3 % (11.8-14.3)
[2020-10-23 05:43] LABS: Hematocrit 22.3 % (41.0-53.0); Platelet Count (auto) 71 10^3/uL (140-450); Red Blood Cells 2.56 10^6/uL (4.5-5.90); White Blood Cell 25.6 10^3/uL (4.4-10.8)
[2020-10-23] MEDS: MEROPENEM VABORBACTAM IV SCH (06:00)
[2020-10-23] MEDS: SODIUM CHL 0.9% IV SCH ×3 (06:00→21:22)
[2020-10-23] MEDS: ACCU-CHEK COMFORT CURVE STRIP VI SCH ×5 (06:00→23:50)
[2020-10-23] MEDS: Glucerna Carbsteady SHAKE Stawberry 8oz PO SCH ×4 (06:00→21:23)
[2020-10-23] MEDS: InsuLIN REG 1unit/0.01ml Soln (100units/ml) SC SCH ×5 (06:00→23:51)
[2020-10-23 06:06] LABS: Potassium 3.2 mmol/L (3.5-5.1)
[2020-10-23 06:35] LABS: Band Neutrophils % (manual) 0; Basophils % (manual) 0 (0.0-2.0); Blast Cells 0; Metamyelocytes % 0; Reactive Lymphocytes 0
[2020-10-23 08:09] LABS: Eosinophils % (manual) 9 (0-7); Lymphocytes % (manual) 11 (10.0-50.0); Monocytes % (manual) 10 (0-12); Myelocytes % 1; Promyelocytes % 1
[2020-10-23] MEDS: FLORASTOR (S. BOULARDII) 250 MG CAP PO SCH (09:56)
[2020-10-23] MEDS: METOPROLOL TARTRATE 25 MG TAB NG SCH ×2 (09:56→21:23)
[2020-10-23] MEDS: SODIUM CHLOR 0.9% PF (SALINE LOCK) 10ML VIAL/SYR IV SCH ×2 (09:56→21:22)
[2020-10-23] MEDS: amLODIPine BESYLATE 5 MG TAB PO SCH (09:56)
[2020-10-23] MEDS: ENOXAPARIN SOD 30 MG/0.3 ML SYRINGE SC SCH (09:57)
[2020-10-23] MEDS: CHOLECALCIFEROL (VITD3) 2,000 UNIT CAP/TAB PO SCH (09:57)
[2020-10-23] MEDS: BACITRACIN TOP OINT 1 UD PKG TOP SCH ×2 (09:57→21:24)
[2020-10-23] MEDS: POTASSIUM CHL 20MEQ/100ML 100 ML IV SCH ×2 (10:09→12:44)
[2020-10-23] MEDS: SODIUM FERR GLUC 62.5MG/5ML 125 MG in SODIUM CHL 0.9% 100 ML IV SCH (12:00)
[2020-10-23] MEDS: CEFTAZIDIME AVIBACTAM IV SCH ×2 (14:07→21:22)
[2020-10-23] MEDS: ALBUTEROL SULF 2.5 MG/0.5ML(0.5%) NEB SOLN NEB PRN ×2 (14:40→22:08)
[2020-10-23] MEDS: levoFLOXacin 750MG 150 ML IV SCH (16:49)
[2020-10-23] MEDS: ERGOCALCIFEROL 50,000 UNIT(1.25MG) CAP PO SCH (17:42)
[2020-10-23] MEDS: ATORVASTATIN 20 MG TAB PO SCH (21:23)
[2020-10-24] VITALS (27 sets, daily range): BP systolic 85–129; BP diastolic 45–83
[2020-10-24 04:02] LABS: Hematocrit 22.1 % (41.0-53.0); Red Blood Cells 2.51 10^6/uL (4.5-5.90); White Blood Cell 29.5 10^3/uL (4.4-10.8)
[2020-10-24 04:06] LABS: Hemoglobin 7.4 g/dL (13.5-17.5); Mean Corpuscular Hemoglobin 29.4 pg (28.0-32.0); Mean Corpuscular Hgb Conc. 33.4 g/dL (32.0-36.0); Mean Corpuscular Volume 87.9 fL (80.0-100.0); Platelet Count (auto) 27 10^3/uL (140-450); Red Cell Distribution Width 16.4 % (11.8-14.3)
[2020-10-24 04:22] LABS: Potassium 3.7 mmol/L (3.5-5.1)
[2020-10-24 04:32] LABS: INR 1.2 (0.9-1.15)
[2020-10-24 04:44] LABS: Basophils % (manual) 0 (0.0-2.0); Blast Cells 0; Myelocytes % 0; Promyelocytes % 0; Reactive Lymphocytes 0
[2020-10-24 04:45] LABS: Albumin 1.7 g/dL (3.4-5.0); BUN/Creatinine Ratio 12.7; Bilirubin, Total 1.5 mg/dL (0.2-1.0); Calcium 8.1 mg/dL (8.5-10.1)
[2020-10-24 05:33] LABS: Band Neutrophils % (manual) 15; Eosinophils % (manual) 3 (0-7); Lymphocytes % (manual) 8 (10.0-50.0); Metamyelocytes % 1; Monocytes % (manual) 3 (0-12)
[2020-10-24] MEDS: InsuLIN REG 1unit/0.01ml Soln (100units/ml) SC SCH ×4 (05:46→23:44)
[2020-10-24] MEDS: Glucerna Carbsteady SHAKE Stawberry 8oz PO SCH ×4 (05:46→21:48)
[2020-10-24] MEDS: ACCU-CHEK COMFORT CURVE STRIP VI SCH ×4 (05:46→23:44)
[2020-10-24] MEDS: CEFTAZIDIME AVIBACTAM IV SCH ×3 (06:43→21:47)
[2020-10-24] MEDS: SODIUM CHL 0.9% IV SCH ×3 (06:43→21:47)
[2020-10-24] MEDS ORDERED: FUROSEMIDE 20 MG/2 ML VIAL IV ONE (09:00)
[2020-10-24] MEDS: SODIUM CHLOR 0.9% PF (SALINE LOCK) 10ML VIAL/SYR IV SCH ×2 (10:03→21:48)
[2020-10-24] MEDS: FLORASTOR (S. BOULARDII) 250 MG CAP PO SCH (10:04)
[2020-10-24] MEDS: BACITRACIN TOP OINT 1 UD PKG TOP SCH ×2 (10:04→21:48)
[2020-10-24] MEDS: ENOXAPARIN SOD 30 MG/0.3 ML SYRINGE SC SCH (10:04)
[2020-10-24] MEDS: CHOLECALCIFEROL (VITD3) 2,000 UNIT CAP/TAB PO SCH (10:04)
[2020-10-24] MEDS: METOPROLOL TARTRATE 25 MG TAB NG SCH ×2 (11:45→21:48)
[2020-10-24] MEDS: SODIUM FERR GLUC 62.5MG/5ML 125 MG in SODIUM CHL 0.9% 100 ML IV SCH (12:00)
[2020-10-24] MEDS: amLODIPine BESYLATE 5 MG TAB PO SCH (15:14)
[2020-10-24] MEDS: levoFLOXacin 750MG 150 ML IV SCH (17:58)
[2020-10-24] MEDS: FAMOTIDINE (10MG/ML) 2ML VL IV SCH (21:47)
[2020-10-24] MEDS: ATORVASTATIN 20 MG TAB PO SCH (21:48)
[2020-10-25] VITALS (57 sets, daily range): BP systolic 65–259; BP diastolic 39–124
[2020-10-25 04:39] LABS: Hemoglobin 7.2 g/dL (13.5-17.5)
[2020-10-25 04:42] LABS: Hematocrit 21.5 % (41.0-53.0); Mean Corpuscular Hemoglobin 30.1 pg (28.0-32.0); Mean Corpuscular Hgb Conc. 33.6 g/dL (32.0-36.0); Mean Corpuscular Volume 89.7 fL (80.0-100.0); Red Blood Cells 2.39 10^6/uL (4.5-5.90); Red Cell Distribution Width 16.9 % (11.8-14.3); White Blood Cell 25.6 10^3/uL (4.4-10.8)
[2020-10-25 04:53] LABS: INR 1.26 (0.9-1.15)
[2020-10-25 04:54] LABS: Platelet Count (auto) 5 10^3/uL (140-450)
[2020-10-25 04:56] LABS: Band Neutrophils % (manual) 0; Basophils % (manual) 0 (0.0-2.0); Blast Cells 0; Metamyelocytes % 0; Myelocytes % 0; Promyelocytes % 0; Reactive Lymphocytes 0
[2020-10-25 05:01] LABS: Albumin 1.6 g/dL (3.4-5.0); Potassium 3.5 mmol/L (3.5-5.1)
[2020-10-25 05:17] LABS: BUN/Creatinine Ratio 15.4; Bilirubin, Total 1.2 mg/dL (0.2-1.0); Total Protein 5.9 g/dL (6.4-8.2)
[2020-10-25] MEDS: ACCU-CHEK COMFORT CURVE STRIP VI SCH ×3 (05:31→18:18)
[2020-10-25] MEDS: InsuLIN REG 1unit/0.01ml Soln (100units/ml) SC SCH ×3 (05:31→18:00)
[2020-10-25] MEDS: CEFTAZIDIME AVIBACTAM IV SCH ×3 (05:31→22:57)
[2020-10-25] MEDS: SODIUM CHL 0.9% IV SCH ×3 (05:31→22:57)
[2020-10-25] MEDS: Glucerna Carbsteady SHAKE Stawberry 8oz PO SCH ×4 (05:32→22:57)
[2020-10-25] MEDS: ALBUTEROL SULF 2.5 MG/0.5ML(0.5%) NEB SOLN NEB PRN (06:25)
[2020-10-25 08:17] LABS: Eosinophils % (manual) 10 (0-7); Lymphocytes % (manual) 15 (10.0-50.0); Monocytes % (manual) 6 (0-12)
[2020-10-25] MEDS: METOPROLOL TARTRATE 25 MG TAB NG SCH ×3 (10:00→22:57)
[2020-10-25] MEDS: ENOXAPARIN SOD 30 MG/0.3 ML SYRINGE SC SCH (10:00)
[2020-10-25] MEDS: SODIUM CHLOR 0.9% PF (SALINE LOCK) 10ML VIAL/SYR IV SCH ×2 (10:07→22:57)
[2020-10-25] MEDS: CHOLECALCIFEROL (VITD3) 2,000 UNIT CAP/TAB PO SCH (10:08)
[2020-10-25] MEDS: BACITRACIN TOP OINT 1 UD PKG TOP SCH ×2 (10:08→22:58)
[2020-10-25] MEDS: FLORASTOR (S. BOULARDII) 250 MG CAP PO SCH (10:08)
[2020-10-25] MEDS: SODIUM FERR GLUC 62.5MG/5ML 125 MG in SODIUM CHL 0.9% 100 ML IV SCH (12:25)
[2020-10-25] MEDS: amLODIPine BESYLATE 5 MG TAB PO SCH (12:55)
[2020-10-25] MEDS: levoFLOXacin 750MG 150 ML IV SCH (18:17)
[2020-10-25] MEDS: FREE WATER GT SCH ×2 (18:30→23:01)
[2020-10-25] MEDS ORDERED: ETOMIDATE (2MG/ML) 20ML VIAL IV ONE ×2 (21:13→21:30)
[2020-10-25] MEDS ORDERED: SUCCINYLCHOLINE CHLORIDE 20 MG/ML 10ML VIAL IV ONE ×2 (21:13→21:30)
[2020-10-25] MEDS ORDERED: NOREPINEPHRINE 8 MG/250ML KIT 250 ML IV ONE (22:20)
[2020-10-25] MEDS: MIDAZOLAM DRIP 50 mg/50mL 50 ML IV SCH (22:56)
[2020-10-25] MEDS: ATORVASTATIN 20 MG TAB PO SCH (22:58)
[2020-10-25] MEDS: NOREPINEPHRINE 8 MG/250ML KIT 250 ML IV SCH (23:00)
[2020-10-25] MEDS: PROPOFOL 100 ML IV SCH (23:32)
[2020-10-26] VITALS (106 sets, daily range): BP systolic 81–166; BP diastolic 40–70
[2020-10-26] MEDS: ACCU-CHEK COMFORT CURVE STRIP VI SCH ×5 (00:01→17:32)
[2020-10-26] MEDS: InsuLIN REG 1unit/0.01ml Soln (100units/ml) SC SCH ×5 (00:14→23:37)
[2020-10-26 04:00] LABS: Hematocrit 19.3 % (41.0-53.0); Mean Corpuscular Volume 91.9 fL (80.0-100.0)
[2020-10-26 04:02] LABS: Mean Corpuscular Hgb Conc. 32.6 g/dL (32.0-36.0); Red Cell Distribution Width 17.4 % (11.8-14.3)
[2020-10-26 04:14] LABS: Hemoglobin 6.3 g/dL (13.5-17.5)
[2020-10-26 04:15] LABS: Platelet Count (auto) 8 10^3/uL (140-450)
[2020-10-26 04:16] LABS: Basophils % (manual) 0 (0.0-2.0); Blast Cells 0; Myelocytes % 0; Promyelocytes % 0; Reactive Lymphocytes 0
[2020-10-26 04:20] LABS: Potassium 3.2 mmol/L (3.5-5.1)
[2020-10-26 04:25] LABS: BUN/Creatinine Ratio 15.6; Calcium 7.6 mg/dL (8.5-10.1)
[2020-10-26] MEDS: FREE WATER GT SCH ×4 (05:22→23:36)
[2020-10-26] MEDS: Glucerna Carbsteady SHAKE Stawberry 8oz PO SCH ×4 (05:23→22:52)
[2020-10-26] MEDS: SODIUM CHL 0.9% IV SCH ×3 (05:24→22:52)
[2020-10-26] MEDS: CEFTAZIDIME AVIBACTAM IV SCH ×3 (05:24→22:52)
[2020-10-26] MEDS ORDERED: POTASSIUM CHL 20MEQ/100ML 100 ML IV ONE (06:30)
[2020-10-26 07:17] LABS: Band Neutrophils % (manual) 6; Eosinophils % (manual) 1 (0-7); Lymphocytes % (manual) 24 (10.0-50.0); Metamyelocytes % 1; Monocytes % (manual) 4 (0-12)
[2020-10-26] MEDS: PROPOFOL 100 ML IV SCH ×2 (08:30→18:39)
[2020-10-26] MEDS: METOPROLOL TARTRATE 25 MG TAB NG SCH ×2 (09:22→22:53)
[2020-10-26] MEDS: SODIUM CHLOR 0.9% PF (SALINE LOCK) 10ML VIAL/SYR IV SCH ×2 (09:23→22:52)
[2020-10-26] MEDS: amLODIPine BESYLATE 5 MG TAB PO SCH (09:23)
[2020-10-26] MEDS: ENOXAPARIN SOD 30 MG/0.3 ML SYRINGE SC SCH (09:24)
[2020-10-26] MEDS: FLORASTOR (S. BOULARDII) 250 MG CAP PO SCH (10:27)
[2020-10-26] MEDS: BACITRACIN TOP OINT 1 UD PKG TOP SCH ×2 (10:28→22:53)
[2020-10-26] MEDS: CHOLECALCIFEROL (VITD3) 2,000 UNIT CAP/TAB PO SCH (10:28)
[2020-10-26] MEDS: SODIUM FERR GLUC 62.5MG/5ML 125 MG in SODIUM CHL 0.9% 100 ML IV SCH (13:06)
[2020-10-26] MEDS: MIDAZOLAM DRIP 50 mg/50mL 50 ML IV SCH (16:01)
[2020-10-26] MEDS: levoFLOXacin 750MG 150 ML IV SCH (17:31)
[2020-10-26] MEDS: FAMOTIDINE (10MG/ML) 2ML VL IV SCH (22:52)
[2020-10-26] MEDS: ATORVASTATIN 20 MG TAB PO SCH (22:53)
[2020-10-26] MEDS: NOREPINEPHRINE 8 MG/250ML KIT 250 ML IV SCH (23:00)
[2020-10-27] VITALS (102 sets, daily range): BP systolic 82–177; BP diastolic 45–100
[2020-10-27 04:28] LABS: Hemoglobin 7.6 g/dL (13.5-17.5)
[2020-10-27 04:30] LABS: Hematocrit 22.3 % (41.0-53.0); Mean Corpuscular Hemoglobin 31.1 pg (28.0-32.0); Mean Corpuscular Hgb Conc. 34.2 g/dL (32.0-36.0); Red Blood Cells 2.45 10^6/uL (4.5-5.90); Red Cell Distribution Width 15.4 % (11.8-14.3); White Blood Cell 22.7 10^3/uL (4.4-10.8)
[2020-10-27 04:42] LABS: Calcium 7.4 mg/dL (8.5-10.1)
[2020-10-27 04:44] LABS: BUN/Creatinine Ratio 17.4
[2020-10-27 05:59] LABS: Potassium 2.8 mmol/L (3.5-5.1)
[2020-10-27] MEDS: InsuLIN REG 1unit/0.01ml Soln (100units/ml) SC SCH ×3 (06:00→18:00)
[2020-10-27] MEDS: CEFTAZIDIME AVIBACTAM IV SCH ×3 (06:21→22:00)
[2020-10-27] MEDS: FREE WATER GT SCH ×3 (06:21→18:00)
[2020-10-27] MEDS: SODIUM CHL 0.9% IV SCH ×3 (06:21→22:00)
[2020-10-27] MEDS: ACCU-CHEK COMFORT CURVE STRIP VI SCH ×3 (06:22→18:00)
[2020-10-27] MEDS: Glucerna Carbsteady SHAKE Stawberry 8oz PO SCH ×4 (06:22→22:00)
[2020-10-27 06:30] LABS: Platelet Count (auto) 4 10^3/uL (140-450)
[2020-10-27 06:31] LABS: Basophils % (manual) 0 (0.0-2.0); Blast Cells 0; Metamyelocytes % 0; Promyelocytes % 0; Reactive Lymphocytes 0
[2020-10-27 07:26] LABS: White Blood Cell 32.7 10^3/uL (4.4-10.8)
[2020-10-27 08:06] LABS: Band Neutrophils % (manual) 1; Eosinophils % (manual) 8 (0-7); Lymphocytes % (manual) 9 (10.0-50.0); Monocytes % (manual) 3 (0-12); Myelocytes % 2
[2020-10-27] MEDS: METOPROLOL TARTRATE 25 MG TAB NG SCH ×2 (09:38→22:00)
[2020-10-27] MEDS: amLODIPine BESYLATE 5 MG TAB PO SCH (09:38)
[2020-10-27] MEDS: ENOXAPARIN SOD 30 MG/0.3 ML SYRINGE SC SCH (09:39)
[2020-10-27] MEDS: BACITRACIN TOP OINT 1 UD PKG TOP SCH ×2 (09:39→22:00)
[2020-10-27] MEDS: POTASSIUM CHL 20MEQ/100ML 100 ML IV SCH ×4 (10:00→15:30)
[2020-10-27] MEDS: FLORASTOR (S. BOULARDII) 250 MG CAP PO SCH (10:10)
[2020-10-27] MEDS: SODIUM CHLOR 0.9% PF (SALINE LOCK) 10ML VIAL/SYR IV SCH ×2 (10:10→22:00)
[2020-10-27] MEDS: CHOLECALCIFEROL (VITD3) 2,000 UNIT CAP/TAB PO SCH (10:10)
[2020-10-27] MEDS: SODIUM FERR GLUC 62.5MG/5ML 125 MG in SODIUM CHL 0.9% 100 ML IV SCH (12:00)
[2020-10-27] MEDS: MIDAZOLAM DRIP 50 mg/50mL 50 ML IV SCH (15:43)
[2020-10-27] MEDS: PROPOFOL 100 ML IV SCH (15:43)
[2020-10-27] MEDS: levoFLOXacin 750MG 150 ML IV SCH (17:00)
[2020-10-27] MEDS: DexAMETHasone SOD PHOS 4 MG/1ML SDV INJ IV SCH (22:00)
[2020-10-27] MEDS: ATORVASTATIN 20 MG TAB PO SCH (22:00)
[2020-10-27] MEDS: NOREPINEPHRINE 8 MG/250ML KIT 250 ML IV SCH (22:41)
[2020-10-28] VITALS (87 sets, daily range): BP systolic 94–143; BP diastolic 49–77
[2020-10-28 05:06] LABS: Hemoglobin 7.6 g/dL (13.5-17.5); White Blood Cell 28.9 10^3/uL (4.4-10.8)
[2020-10-28 05:09] LABS: Hematocrit 22.3 % (41.0-53.0); Mean Corpuscular Hemoglobin 30.6 pg (28.0-32.0); Mean Corpuscular Volume 90.1 fL (80.0-100.0); Red Blood Cells 2.48 10^6/uL (4.5-5.90); Red Cell Distribution Width 15.6 % (11.8-14.3)
[2020-10-28] MEDS: FREE WATER GT SCH ×5 (05:21→23:04)
[2020-10-28] MEDS: Glucerna Carbsteady SHAKE Stawberry 8oz PO SCH ×4 (05:22→22:00)
[2020-10-28 05:29] LABS: Platelet Count (auto) 4 10^3/uL (140-450)
[2020-10-28] MEDS: CEFTAZIDIME AVIBACTAM IV SCH ×3 (05:30→22:00)
[2020-10-28] MEDS: SODIUM CHL 0.9% IV SCH ×3 (05:30→22:00)
[2020-10-28 05:31] LABS: Basophils % (manual) 0 (0.0-2.0); Blast Cells 0; Promyelocytes % 0; Reactive Lymphocytes 0
[2020-10-28 05:35] LABS: BUN/Creatinine Ratio 20.5; Calcium 7.2 mg/dL (8.5-10.1); Potassium 3.8 mmol/L (3.5-5.1)
[2020-10-28] MEDS: DexAMETHasone SOD PHOS 4 MG/1ML SDV INJ IV SCH ×3 (05:40→22:00)
[2020-10-28] MEDS: ACCU-CHEK COMFORT CURVE STRIP VI SCH ×5 (05:41→23:04)
[2020-10-28] MEDS: InsuLIN REG 1unit/0.01ml Soln (100units/ml) SC SCH ×5 (05:41→23:04)
[2020-10-28 06:43] LABS: Band Neutrophils % (manual) 24; Eosinophils % (manual) 5 (0-7); Lymphocytes % (manual) 9 (10.0-50.0); Metamyelocytes % 1; Monocytes % (manual) 6 (0-12); Myelocytes % 1
[2020-10-28] MEDS: METOPROLOL TARTRATE 25 MG TAB NG SCH ×2 (10:00→22:00)
[2020-10-28] MEDS: ENOXAPARIN SOD 30 MG/0.3 ML SYRINGE SC SCH (10:00)
[2020-10-28] MEDS: amLODIPine BESYLATE 5 MG TAB PO SCH (10:00)
[2020-10-28] MEDS: SODIUM CHLOR 0.9% PF (SALINE LOCK) 10ML VIAL/SYR IV SCH ×2 (10:09→22:00)
[2020-10-28] MEDS: FLORASTOR (S. BOULARDII) 250 MG CAP PO SCH (10:10)
[2020-10-28] MEDS: BACITRACIN TOP OINT 1 UD PKG TOP SCH ×2 (10:10→22:00)
[2020-10-28] MEDS: CHOLECALCIFEROL (VITD3) 2,000 UNIT CAP/TAB PO SCH (10:10)
[2020-10-28] MEDS ORDERED: diphenhdrAMINE HCL 50 MG/1 ML VL IV ONE (10:45)
[2020-10-28] MEDS: diphenhdrAMINE HCL 50 MG/1 ML VL IV SCH (11:03)
[2020-10-28] MEDS: IV IMMUNE GLOBULIN(IVIG) 10% 20G/200ML IV SCH (11:04)
[2020-10-28] MEDS: SODIUM FERR GLUC 62.5MG/5ML 125 MG in SODIUM CHL 0.9% 100 ML IV SCH (12:36)
[2020-10-28] MEDS: PROPOFOL 100 ML IV SCH (17:13)
[2020-10-28] MEDS: MIDAZOLAM DRIP 50 mg/50mL 50 ML IV SCH (17:14)
[2020-10-28] MEDS: levoFLOXacin 750MG 150 ML IV SCH (17:54)
[2020-10-28] MEDS: FAMOTIDINE (10MG/ML) 2ML VL IV SCH (22:00)
[2020-10-28] MEDS: ATORVASTATIN 20 MG TAB PO SCH (22:00)
[2020-10-28] MEDS: NOREPINEPHRINE 8 MG/250ML KIT 250 ML IV SCH (23:00)
[2020-10-29] VITALS (69 sets, daily range): BP systolic 94–120; BP diastolic 51–70
[2020-10-29 04:14] LABS: Hematocrit 18.6 % (41.0-53.0); Mean Corpuscular Hgb Conc. 33.6 g/dL (32.0-36.0); Platelet Count (auto) 25 10^3/uL (140-450); Red Blood Cells 2.04 10^6/uL (4.5-5.90); Red Cell Distribution Width 15.9 % (11.8-14.3)
[2020-10-29 04:16] LABS: Mean Corpuscular Hemoglobin 30.6 pg (28.0-32.0); Mean Corpuscular Volume 90.9 fL (80.0-100.0); White Blood Cell 22.5 10^3/uL (4.4-10.8)
[2020-10-29 04:35] LABS: Hemoglobin 6.3 g/dL (13.5-17.5)
[2020-10-29 04:36] LABS: Basophils % (manual) 0 (0.0-2.0); Blast Cells 0; Eosinophils % (manual) 0 (0-7); Myelocytes % 0; Promyelocytes % 0; Reactive Lymphocytes 0
[2020-10-29 04:43] LABS: Potassium 3.8 mmol/L (3.5-5.1)
[2020-10-29 04:47] LABS: BUN/Creatinine Ratio 24.6; Calcium 6.7 mg/dL (8.5-10.1)
[2020-10-29 04:59] LABS: Band Neutrophils % (manual) 31; Lymphocytes % (manual) 13 (10.0-50.0); Metamyelocytes % 1; Monocytes % (manual) 2 (0-12)
[2020-10-29] MEDS: InsuLIN REG 1unit/0.01ml Soln (100units/ml) SC SCH ×3 (05:23→18:27)
[2020-10-29] MEDS: ACCU-CHEK COMFORT CURVE STRIP VI SCH ×3 (05:23→18:24)
[2020-10-29] MEDS: DexAMETHasone SOD PHOS 4 MG/1ML SDV INJ IV SCH ×3 (05:30→22:00)
[2020-10-29] MEDS: FREE WATER GT SCH ×3 (05:30→17:52)
[2020-10-29] MEDS: CEFTAZIDIME AVIBACTAM IV SCH ×3 (05:30→22:00)
[2020-10-29] MEDS: SODIUM CHL 0.9% IV SCH ×3 (05:30→22:00)
[2020-10-29] MEDS: Glucerna Carbsteady SHAKE Stawberry 8oz PO SCH ×4 (05:31→22:00)
[2020-10-29] MEDS: ENOXAPARIN SOD 30 MG/0.3 ML SYRINGE SC SCH (09:25)
[2020-10-29] MEDS: diphenhdrAMINE HCL 50 MG/1 ML VL IV SCH (09:59)
[2020-10-29] MEDS: SODIUM CHLOR 0.9% PF (SALINE LOCK) 10ML VIAL/SYR IV SCH ×2 (10:00→22:00)
[2020-10-29] MEDS: METOPROLOL TARTRATE 25 MG TAB NG SCH (10:00)
[2020-10-29] MEDS: amLODIPine BESYLATE 5 MG TAB PO SCH (10:00)
[2020-10-29] MEDS: FLORASTOR (S. BOULARDII) 250 MG CAP PO SCH (10:00)
[2020-10-29] MEDS: IV IMMUNE GLOBULIN(IVIG) 10% 20G/200ML IV SCH (10:00)
[2020-10-29] MEDS: CHOLECALCIFEROL (VITD3) 2,000 UNIT CAP/TAB PO SCH (10:01)
[2020-10-29] MEDS: BACITRACIN TOP OINT 1 UD PKG TOP SCH ×2 (10:01→22:00)
[2020-10-29] MEDS ORDERED: DEXTROSE (50%) 50ML SYRG IV PRN (12:45)
[2020-10-29] MEDS: levoFLOXacin 750MG 150 ML IV SCH (17:50)
[2020-10-29 19:28] LABS: Hematocrit 19.6 % (41.0-53.0)
[2020-10-29 19:40] LABS: Hemoglobin 6.7 g/dL (13.5-17.5)
[2020-10-29] MEDS: ATORVASTATIN 20 MG TAB PO SCH (22:00)
[2020-10-30] VITALS (67 sets, daily range): BP systolic 96–134; BP diastolic 52–71
[2020-10-30] MEDS: FREE WATER GT SCH ×4 (06:00→18:15)
[2020-10-30] MEDS: CEFTAZIDIME AVIBACTAM IV SCH ×3 (06:00→22:00)
[2020-10-30] MEDS: ACCU-CHEK COMFORT CURVE STRIP VI SCH ×4 (06:00→18:15)
[2020-10-30] MEDS: InsuLIN REG 1unit/0.01ml Soln (100units/ml) SC SCH ×4 (06:00→18:17)
[2020-10-30] MEDS: Glucerna Carbsteady SHAKE Stawberry 8oz PO SCH ×4 (06:00→22:00)
[2020-10-30] MEDS: SODIUM CHL 0.9% IV SCH ×3 (06:00→22:00)
[2020-10-30] MEDS: DexAMETHasone SOD PHOS 4 MG/1ML SDV INJ IV SCH ×3 (06:00→22:00)
[2020-10-30] MEDS: MIDAZOLAM DRIP 50 mg/50mL 50 ML IV SCH (08:00)
[2020-10-30] MEDS: PROPOFOL 100 ML IV SCH (08:00)
[2020-10-30] MEDS: CHOLECALCIFEROL (VITD3) 2,000 UNIT CAP/TAB PO SCH (10:12)
[2020-10-30] MEDS: BACITRACIN TOP OINT 1 UD PKG TOP SCH ×2 (10:12→22:00)
[2020-10-30] MEDS: SODIUM CHLOR 0.9% PF (SALINE LOCK) 10ML VIAL/SYR IV SCH ×2 (10:12→22:00)
[2020-10-30] MEDS: FLORASTOR (S. BOULARDII) 250 MG CAP PO SCH (10:12)
[2020-10-30 12:18] LABS: Hemoglobin 9.1 g/dL (13.5-17.5); Red Cell Distribution Width 15.5 % (11.8-14.3)
[2020-10-30 12:19] LABS: Calcium 6.8 mg/dL (8.5-10.1); Potassium 3.6 mmol/L (3.5-5.1)
[2020-10-30 12:20] LABS: Hematocrit 27.2 % (41.0-53.0); Mean Corpuscular Hemoglobin 31.2 pg (28.0-32.0); Mean Corpuscular Hgb Conc. 33.6 g/dL (32.0-36.0); Red Blood Cells 2.92 10^6/uL (4.5-5.90); White Blood Cell 19.4 10^3/uL (4.4-10.8)
[2020-10-30 12:23] LABS: BUN/Creatinine Ratio 32.9; Bilirubin, Total 0.5 mg/dL (0.2-1.0); Platelet Count (auto) 14 10^3/uL (140-450); Total Protein 7.7 g/dL (6.4-8.2)
[2020-10-30 12:25] LABS: Basophils % (manual) 0 (0.0-2.0); Blast Cells 0; Eosinophils % (manual) 0 (0-7); Metamyelocytes % 0; Myelocytes % 0; Promyelocytes % 0; Reactive Lymphocytes 0
[2020-10-30 13:15] LABS: Band Neutrophils % (manual) 7; Lymphocytes % (manual) 9 (10.0-50.0); Monocytes % (manual) 3 (0-12)
[2020-10-30] MEDS: levoFLOXacin 750MG 150 ML IV SCH (16:36)
[2020-10-30] MEDS: ERGOCALCIFEROL 50,000 UNIT(1.25MG) CAP PO SCH (16:36)
[2020-10-30] MEDS: ATORVASTATIN 20 MG TAB PO SCH (22:00)
[2020-10-30] MEDS: FAMOTIDINE (10MG/ML) 2ML VL IV SCH (22:00)
[2020-10-31] VITALS (65 sets, daily range): BP systolic 96–132; BP diastolic 46–80
[2020-10-31] MEDS: FREE WATER GT SCH ×5 (00:29→22:20)
[2020-10-31] MEDS: ACCU-CHEK COMFORT CURVE STRIP VI SCH ×5 (00:29→23:38)
[2020-10-31] MEDS: Glucerna Carbsteady SHAKE Stawberry 8oz PO SCH ×4 (06:00→21:33)
[2020-10-31] MEDS: InsuLIN REG 1unit/0.01ml Soln (100units/ml) SC SCH ×5 (06:00→23:38)
[2020-10-31] MEDS: DexAMETHasone SOD PHOS 4 MG/1ML SDV INJ IV SCH ×3 (06:00→22:20)
[2020-10-31] MEDS: CEFTAZIDIME AVIBACTAM IV SCH ×3 (06:00→21:20)
[2020-10-31] MEDS: SODIUM CHL 0.9% IV SCH ×3 (06:00→21:20)
[2020-10-31 08:44] LABS: Hematocrit 26.2 % (41.0-53.0); Hemoglobin 8.8 g/dL (13.5-17.5); Mean Corpuscular Hemoglobin 31.3 pg (28.0-32.0); Mean Corpuscular Hgb Conc. 33.8 g/dL (32.0-36.0); Mean Corpuscular Volume 92.6 fL (80.0-100.0); Platelet Count (auto) 89 10^3/uL (140-450); Red Blood Cells 2.83 10^6/uL (4.5-5.90); White Blood Cell 17.1 10^3/uL (4.4-10.8)
[2020-10-31 08:51] LABS: Albumin 1.1 g/dL (3.4-5.0); Calcium 6.6 mg/dL (8.5-10.1); Potassium 3.7 mmol/L (3.5-5.1)
[2020-10-31 08:54] LABS: BUN/Creatinine Ratio 36.7; Bilirubin, Total 0.4 mg/dL (0.2-1.0); Total Protein 7.2 g/dL (6.4-8.2)
[2020-10-31 08:59] LABS: Basophils % (manual) 0 (0.0-2.0); Blast Cells 0; Eosinophils % (manual) 0 (0-7); Metamyelocytes % 0; Myelocytes % 0; Promyelocytes % 0; Reactive Lymphocytes 0
[2020-10-31] MEDS: PROPOFOL 100 ML IV SCH ×2 (09:54→15:38)
[2020-10-31] MEDS: SODIUM CHLOR 0.9% PF (SALINE LOCK) 10ML VIAL/SYR IV SCH ×2 (09:55→21:20)
[2020-10-31] MEDS: FLORASTOR (S. BOULARDII) 250 MG CAP PO SCH (09:55)
[2020-10-31] MEDS: MIDAZOLAM DRIP 50 mg/50mL 50 ML IV SCH ×2 (09:55→20:52)
[2020-10-31] MEDS: BACITRACIN TOP OINT 1 UD PKG TOP SCH ×2 (09:55→22:20)
[2020-10-31] MEDS: CHOLECALCIFEROL (VITD3) 2,000 UNIT CAP/TAB PO SCH (09:55)
[2020-10-31 11:57] LABS: Band Neutrophils % (manual) 3; Lymphocytes % (manual) 7 (10.0-50.0); Monocytes % (manual) 4 (0-12)
[2020-10-31] MEDS: levoFLOXacin 750MG 150 ML IV SCH (17:00)
[2020-10-31] MEDS: ATORVASTATIN 20 MG TAB PO SCH (22:20)
[2020-11-01] VITALS (27 sets, daily range): BP systolic 100–140; BP diastolic 50–76
[2020-11-01] MEDS: FREE WATER GT SCH ×3 (04:59→18:09)
[2020-11-01] MEDS: Glucerna Carbsteady SHAKE Stawberry 8oz PO SCH ×4 (05:00→22:22)
[2020-11-01] MEDS: CEFTAZIDIME AVIBACTAM IV SCH ×3 (05:00→22:21)
[2020-11-01] MEDS: SODIUM CHL 0.9% IV SCH ×3 (05:00→22:21)
[2020-11-01] MEDS: DexAMETHasone SOD PHOS 4 MG/1ML SDV INJ IV SCH ×3 (05:00→22:21)
[2020-11-01] MEDS: InsuLIN REG 1unit/0.01ml Soln (100units/ml) SC SCH ×3 (05:12→18:10)
[2020-11-01] MEDS: ACCU-CHEK COMFORT CURVE STRIP VI SCH ×3 (05:16→18:12)
[2020-11-01 05:24] LABS: INR 1.19 (0.9-1.15)
[2020-11-01 05:31] LABS: Basophils # (auto) 0 10 ^3/uL (0-0.2); Basophils % (auto) 0.1 % (0.0-2.0); Eosinophils # (auto) 0 10 ^3/uL (0-0.8); Hematocrit 24.6 % (41.0-53.0); Hemoglobin 8.3 g/dL (13.5-17.5); Lymphocytes # (auto) 1.5 10 ^3/uL (0.4-5.4); Lymphocytes % (auto) 8.8 % (10.0-50.0); Mean Corpuscular Hemoglobin 31.4 pg (28.0-32.0); Mean Corpuscular Hgb Conc. 33.5 g/dL (32.0-36.0); Mean Corpuscular Volume 93.6 fL (80.0-100.0); Monocytes # (auto) 1.4 10 ^3/uL (0-1.3); Monocytes % (auto) 8.1 % (0.0-12.0); Neutrophils # (auto) 14.2 10 ^3/uL (1.6-8.6); Nucleated Red Blood Cells % 1.9 %; Platelet Count (auto) 58 10^3/uL (140-450); Red Blood Cells 2.63 10^6/uL (4.5-5.90); Red Cell Distribution Width 16.2 % (11.8-14.3); White Blood Cell 17.2 10^3/uL (4.4-10.8)
[2020-11-01 05:38] LABS: Potassium 3.7 mmol/L (3.5-5.1)
[2020-11-01 06:32] LABS: BUN/Creatinine Ratio 39.3; Calcium 6.6 mg/dL (8.5-10.1); Magnesium 1.5 mg/dL (1.6-2.6)
[2020-11-01] MEDS ORDERED: SOD CHL 0.45% 1,000 ML IV ONE (09:45)
[2020-11-01] MEDS ORDERED: POTASSIUM CHL 20MEQ/100ML 100 ML IV ONE (09:45)
[2020-11-01] MEDS ORDERED: FUROSEMIDE 40 MG/4 ML VIAL IV ONE (09:45)
[2020-11-01] MEDS: MAGNESIUM SULFATE 1GM/100ML 100 ML IV SCH ×2 (09:55→10:19)
[2020-11-01] MEDS: FLORASTOR (S. BOULARDII) 250 MG CAP PO SCH (09:55)
[2020-11-01] MEDS: SODIUM CHLOR 0.9% PF (SALINE LOCK) 10ML VIAL/SYR IV SCH ×2 (09:55→22:21)
[2020-11-01] MEDS: CHOLECALCIFEROL (VITD3) 2,000 UNIT CAP/TAB PO SCH (09:56)
[2020-11-01] MEDS: BACITRACIN TOP OINT 1 UD PKG TOP SCH ×2 (09:56→22:22)
[2020-11-01] MEDS: levoFLOXacin 750MG 150 ML IV SCH (16:09)
[2020-11-01] MEDS: MIDAZOLAM DRIP 50 mg/50mL 50 ML IV SCH (21:30)
[2020-11-01] MEDS: FAMOTIDINE (10MG/ML) 2ML VL IV SCH (22:21)
[2020-11-01] MEDS: ATORVASTATIN 20 MG TAB PO SCH (22:21)
[2020-11-02] VITALS (40 sets, daily range): BP systolic 72–135; BP diastolic 47–81
[2020-11-02] MEDS: SODIUM CHL 0.9% IV SCH ×3 (06:00→22:00)
[2020-11-02] MEDS: DexAMETHasone SOD PHOS 4 MG/1ML SDV INJ IV SCH ×3 (06:00→22:00)
[2020-11-02] MEDS: CEFTAZIDIME AVIBACTAM IV SCH ×3 (06:00→22:00)
[2020-11-02] MEDS: InsuLIN REG 1unit/0.01ml Soln (100units/ml) SC SCH ×4 (06:00→18:04)
[2020-11-02] MEDS: FREE WATER GT SCH ×4 (06:00→17:07)
[2020-11-02] MEDS: Glucerna Carbsteady SHAKE Stawberry 8oz PO SCH ×4 (06:00→22:00)
[2020-11-02] MEDS: ACCU-CHEK COMFORT CURVE STRIP VI SCH ×4 (06:00→18:04)
[2020-11-02 06:37] LABS: Red Cell Distribution Width 16.3 % (11.8-14.3); White Blood Cell 17.4 10^3/uL (4.4-10.8)
[2020-11-02 06:43] LABS: Hematocrit 22.5 % (41.0-53.0); Hemoglobin 7.7 g/dL (13.5-17.5); Mean Corpuscular Hemoglobin 31.7 pg (28.0-32.0); Mean Corpuscular Hgb Conc. 34.2 g/dL (32.0-36.0); Mean Corpuscular Volume 92.9 fL (80.0-100.0); Platelet Count (auto) 43 10^3/uL (140-450); Red Blood Cells 2.42 10^6/uL (4.5-5.90)
[2020-11-02 06:47] LABS: Basophils % (manual) 0 (0.0-2.0); Blast Cells 0; Eosinophils % (manual) 0 (0-7); Myelocytes % 0; Promyelocytes % 0; Reactive Lymphocytes 0
[2020-11-02 07:11] LABS: Potassium 3.7 mmol/L (3.5-5.1)
[2020-11-02 07:18] LABS: BUN/Creatinine Ratio 38.9; Calcium 6.7 mg/dL (8.5-10.1)
[2020-11-02] MEDS: SODIUM CHLOR 0.9% PF (SALINE LOCK) 10ML VIAL/SYR IV SCH ×2 (09:54→22:00)
[2020-11-02] MEDS: FLORASTOR (S. BOULARDII) 250 MG CAP PO SCH (09:54)
[2020-11-02] MEDS: CHOLECALCIFEROL (VITD3) 2,000 UNIT CAP/TAB PO SCH (09:54)
[2020-11-02] MEDS: BACITRACIN TOP OINT 1 UD PKG TOP SCH ×2 (09:55→22:00)
[2020-11-02 12:34] LABS: Band Neutrophils % (manual) 5; Lymphocytes % (manual) 2 (10.0-50.0); Monocytes % (manual) 3 (0-12)
[2020-11-02 12:35] LABS: Metamyelocytes % 1
[2020-11-02] MEDS: levoFLOXacin 750MG 150 ML IV SCH (16:12)
[2020-11-02] MEDS: MIDAZOLAM DRIP 50 mg/50mL 50 ML IV SCH (16:14)
[2020-11-02] MEDS: PROPOFOL 100 ML IV SCH (17:06)
[2020-11-02] MEDS: NOREPINEPHRINE 8 MG/250ML KIT 250 ML IV SCH (20:07)
[2020-11-02] MEDS ORDERED: NOREPINEPHRINE 8 MG/250ML KIT 250 ML IV ONE (20:15)
[2020-11-02] MEDS: ATORVASTATIN 20 MG TAB PO SCH (22:00)
[2020-11-03] VITALS (84 sets, daily range): BP systolic 61–157; BP diastolic 30–74
[2020-11-03] MEDS: FREE WATER GT SCH ×5 (00:26→21:21)
[2020-11-03] MEDS: ACCU-CHEK COMFORT CURVE STRIP VI SCH ×4 (00:26→17:50)
[2020-11-03] MEDS: InsuLIN REG 1unit/0.01ml Soln (100units/ml) SC SCH ×4 (06:00→17:48)
[2020-11-03] MEDS: CEFTAZIDIME AVIBACTAM IV SCH ×3 (06:00→22:00)
[2020-11-03] MEDS: DexAMETHasone SOD PHOS 4 MG/1ML SDV INJ IV SCH ×3 (06:00→21:17)
[2020-11-03] MEDS: Glucerna Carbsteady SHAKE Stawberry 8oz PO SCH ×4 (06:00→21:19)
[2020-11-03] MEDS: SODIUM CHL 0.9% IV SCH ×3 (06:00→22:00)
[2020-11-03] MEDS: MIDAZOLAM DRIP 50 mg/50mL 50 ML IV SCH (09:30)
[2020-11-03] MEDS: BACITRACIN TOP OINT 1 UD PKG TOP SCH ×2 (09:56→21:20)
[2020-11-03] MEDS: PANTOPRAZOLE 40 MG/10 ML VIAL INJ IV SCH ×2 (09:56→21:18)
[2020-11-03] MEDS: SODIUM CHLOR 0.9% PF (SALINE LOCK) 10ML VIAL/SYR IV SCH ×2 (09:56→21:19)
[2020-11-03] MEDS: CHOLECALCIFEROL (VITD3) 2,000 UNIT CAP/TAB PO SCH (09:56)
[2020-11-03] MEDS: FLORASTOR (S. BOULARDII) 250 MG CAP PO SCH (09:56)
[2020-11-03] MEDS ORDERED: FUROSEMIDE 40 MG/4 ML VIAL IV ONE (10:45)
[2020-11-03] MEDS ORDERED: POTASSIUM EFFERVESENT TAB 25 MEQ GT ONE (10:45)
[2020-11-03] MEDS: PROPOFOL 100 ML IV SCH ×3 (10:48→18:10)
[2020-11-03] MEDS: NOREPINEPHRINE 8 MG/250ML KIT 250 ML IV SCH ×2 (11:45→22:00)
[2020-11-03 13:13] LABS: BUN/Creatinine Ratio 34.3; Calcium 6.6 mg/dL (8.5-10.1)
[2020-11-03] MEDS: SODIUM BICARBONATE 8.4 % INJ 50ML VIAL IV SCH ×2 (13:40→15:49)
[2020-11-03] MEDS: levoFLOXacin 750MG 150 ML IV SCH (16:54)
[2020-11-03] MEDS ORDERED: SODIUM BICARBONATE 8.4 % INJ 50ML VIAL IV ONE (16:57)
[2020-11-03 17:49] LABS: Mean Corpuscular Volume 103.1 fL (80.0-100.0)
[2020-11-03 17:51] LABS: Hematocrit 16.3 % (41.0-53.0); Mean Corpuscular Hemoglobin 32.7 pg (28.0-32.0); Mean Corpuscular Hgb Conc. 31.7 g/dL (32.0-36.0); Red Blood Cells 1.58 10^6/uL (4.5-5.90); Red Cell Distribution Width 18.6 % (11.8-14.3); White Blood Cell 25.2 10^3/uL (4.4-10.8)
[2020-11-03 17:55] LABS: Platelet Count (auto) 52 10^3/uL (140-450)
[2020-11-03 17:57] LABS: Hemoglobin 5.2 g/dL (13.5-17.5)
[2020-11-03 17:59] LABS: Basophils % (manual) 0 (0.0-2.0); Eosinophils % (manual) 0 (0-7); Monocytes % (manual) 0 (0-12); Promyelocytes % 0; Reactive Lymphocytes 0
[2020-11-03 18:31] LABS: Band Neutrophils % (manual) 24; Blast Cells 1; Lymphocytes % (manual) 18 (10.0-50.0); Metamyelocytes % 5; Myelocytes % 4
[2020-11-03] MEDS ORDERED: SODIUM CHLORIDE 0.9% 1,000 ML IV ONE (19:45)
[2020-11-03] MEDS: ATORVASTATIN 20 MG TAB PO SCH (21:21)
[2020-11-03] MEDS: VASOPRESSIN 50 UNITS in D5W 5% 247.5 ML IV SCH (22:00)
[2020-11-03] MEDS ORDERED: VASOPRESSIN 20 UNIT/ML ONE (22:01)
[2020-11-04] VITALS (10 sets, daily range): BP systolic 0–131; BP diastolic 0–79
[2020-11-04] MEDS ORDERED: PROPOFOL 100 ML IV ONE (00:41)
[2020-11-04] MEDS ORDERED: SODIUM BICARBONATE 8.4% INJ 50ML SYRINGE ONE ×2 (00:52→05:50)
[2020-11-04] MEDS ORDERED: SODIUM BICARBONATE 8.4 % INJ 50ML VIAL IV ONE ×4 (00:53→09:15)
[2020-11-04] MEDS ORDERED: SODIUM BICARBONATE 50ML VIAL 150 ML in SOD CHL 0.45% 1,000 ML IV SCH ×2 (01:00→04:30)
[2020-11-04] MEDS: EPINEPHrine HCL 250 ML IV SCH ×4 (01:00→14:25)
[2020-11-04] MEDS: InsuLIN REG 1unit/0.01ml Soln (100units/ml) SC SCH ×3 (02:00→12:00)
[2020-11-04 04:49] LABS: Calcium 6.7 mg/dL (8.5-10.1)
[2020-11-04 05:00] LABS: BUN/Creatinine Ratio 33.6; Bilirubin, Total 0.8 mg/dL (0.2-1.0)
[2020-11-04] MEDS: VASOPRESSIN 50 UNITS in D5W 5% 247.5 ML IV SCH (05:02)
[2020-11-04 05:16] LABS: Albumin 0.7 g/dL (3.4-5.0); Potassium 7.3 mmol/L (3.5-5.1)
[2020-11-04] MEDS ORDERED: DEXTROSE (50%) 50ML SYRG IV ONE ×2 (05:45→09:15)
[2020-11-04] MEDS ORDERED: SODIUM BICARBONATE 8.4% INJ 50ML SYRINGE IV ONE (05:45)
[2020-11-04] MEDS ORDERED: InsuLIN REG 1unit/0.01ml Soln (100units/ml) IV ONE ×2 (05:45→09:15)
[2020-11-04] MEDS ORDERED: CALCIUM GLUC 4.65meq/50ml D5AE 50 ML IV ONE ×2 (05:45→05:56)
[2020-11-04] MEDS ORDERED: ALBUTEROL SULF 2.5 MG/0.5ML(0.5%) NEB SOLN NEB ONE ×2 (05:45→09:15)
[2020-11-04] MEDS ORDERED: DEXTROSE 50% SYRINGE 50 ML IV ONE (05:49)
[2020-11-04] MEDS ORDERED: CALCIUM CHLOR(10%) 100MG/ML 10ML SYRINGE IV ONE ×2 (05:50→18:55)
[2020-11-04] MEDS: Glucerna Carbsteady SHAKE Stawberry 8oz PO SCH ×2 (06:00→11:49)
[2020-11-04] MEDS: SODIUM CHL 0.9% IV SCH ×2 (06:26→13:42)
[2020-11-04] MEDS: CEFTAZIDIME AVIBACTAM IV SCH ×2 (06:26→13:42)
[2020-11-04] MEDS: ACCU-CHEK COMFORT CURVE STRIP VI SCH ×3 (06:27→11:49)
[2020-11-04 08:04] LABS: Red Blood Cells 1.63 10^6/uL (4.5-5.90); White Blood Cell 28.5 10^3/uL (4.4-10.8)
[2020-11-04 08:06] LABS: Hematocrit 17.2 % (41.0-53.0); Mean Corpuscular Hemoglobin 31.5 pg (28.0-32.0); Mean Corpuscular Hgb Conc. 29.9 g/dL (32.0-36.0); Mean Corpuscular Volume 105.5 fL (80.0-100.0); Platelet Count (auto) 34 10^3/uL (140-450); Red Cell Distribution Width 16.9 % (11.8-14.3)
[2020-11-04 08:15] LABS: BUN/Creatinine Ratio 32.3; Calcium 7.1 mg/dL (8.5-10.1)
[2020-11-04 08:19] LABS: Hemoglobin 5.1 g/dL (13.5-17.5)
[2020-11-04 08:20] LABS: Basophils % (manual) 0 (0.0-2.0)
[2020-11-04 08:21] LABS: Blast Cells 0; Reactive Lymphocytes 0
[2020-11-04 08:23] LABS: Total Protein 3.1 g/dL (6.4-8.2)
[2020-11-04 08:30] LABS: Albumin 0.6 g/dL (3.4-5.0)
[2020-11-04 09:09] LABS: Band Neutrophils % (manual) 12; Eosinophils % (manual) 1 (0-7); Lymphocytes % (manual) 16 (10.0-50.0); Metamyelocytes % 2; Monocytes % (manual) 6 (0-12); Myelocytes % 7; Promyelocytes % 1
[2020-11-04] MEDS ORDERED: SODIUM BICARBONATE 50ML VIAL 150 ML in D5W 5% 1,000 ML IV SCH ×2 (09:15→14:45)
[2020-11-04] MEDS: PROPOFOL 100 ML IV SCH ×2 (09:22→11:45)
[2020-11-04] MEDS: CHOLECALCIFEROL (VITD3) 2,000 UNIT CAP/TAB PO SCH (11:00)
[2020-11-04] MEDS: SODIUM CHLOR 0.9% PF (SALINE LOCK) 10ML VIAL/SYR IV SCH (11:00)
[2020-11-04] MEDS: PANTOPRAZOLE 40 MG/10 ML VIAL INJ IV SCH (11:00)
[2020-11-04] MEDS: BACITRACIN TOP OINT 1 UD PKG TOP SCH (11:00)
[2020-11-04] MEDS: FLORASTOR (S. BOULARDII) 250 MG CAP PO SCH (11:00)
[2020-11-04] MEDS: DexAMETHasone SOD PHOS 4 MG/1ML SDV INJ IV SCH ×2 (11:46→13:42)
[2020-11-04] MEDS: FREE WATER GT SCH ×2 (11:47→11:49)
[2020-11-04] MEDS: NOREPINEPHRINE 8 MG/250ML KIT 250 ML IV SCH (13:54)
[2020-11-04] MEDS ORDERED: EPINEPHrine HCL 1 MG/10 ML SYRG IV ONE (22:05)
== END 2020-11-04 18:56 | DRG 720 ==
LOC: ER 10:47 → EDBD 10:47 → OVERFLOW 10:48 → TELE-E-ADS 09-11 13:07 → ICU WEST 09-19 14:43
PROVIDERS: ADMIT Nurse Practitioner Acute Care; ATTEND Internal Medicine
PROC: XW033E5 Introduction of Remdesivir Anti-infective into Peripheral Vein, Percutaneous Approach, New Technology Group 5 (ICD-10-PCS; 2020-08-29)
PROC: 5A1955Z Respiratory Ventilation, Greater than 96 Consecutive Hours (ICD-10-PCS; principal; 2020-08-31)
PROC: 0BH17EZ Insertion of Endotracheal Airway into Trachea, Via Natural or Artificial Opening (ICD-10-PCS; 2020-08-31)
PROC: B54BZZA Ultrasonography of Right Lower Extremity Veins, Guidance (ICD-10-PCS; 2020-09-01)
PROC: 06HY33Z Insertion of Infusion Device into Lower Vein, Percutaneous Approach (ICD-10-PCS; 2020-09-01)
PROC: XW13325 Transfusion of Convalescent Plasma (Nonautologous) into Peripheral Vein, Percutaneous Approach, New Technology Group 5 (ICD-10-PCS; 2020-09-06)
PROC: XW033H5 Introduction of Tocilizumab into Peripheral Vein, Percutaneous Approach, New Technology Group 5 (ICD-10-PCS; 2020-09-07)
PROC: 0BP1XDZ Removal of Intraluminal Device from Trachea, External Approach (ICD-10-PCS; 2020-09-08)
PROC: 30233K1 Transfusion of Nonautologous Frozen Plasma into Peripheral Vein, Percutaneous Approach (ICD-10-PCS; 2020-09-18)
PROC: 30233N1 Transfusion of Nonautologous Red Blood Cells into Peripheral Vein, Percutaneous Approach (ICD-10-PCS; 2020-09-18)
PROC: 5A1955Z Respiratory Ventilation, Greater than 96 Consecutive Hours (ICD-10-PCS; 2020-09-19)
PROC: 0BH17EZ Insertion of Endotracheal Airway into Trachea, Via Natural or Artificial Opening (ICD-10-PCS; 2020-09-19)
PROC: 02HV33Z Insertion of Infusion Device into Superior Vena Cava, Percutaneous Approach (ICD-10-PCS; 2020-09-21)
PROC: 0BP1XDZ Removal of Intraluminal Device from Trachea, External Approach (ICD-10-PCS; 2020-10-16)
PROC: 5A09557 Assistance with Respiratory Ventilation, Greater than 96 Consecutive Hours, Continuous Positive Airway Pressure (ICD-10-PCS; 2020-10-19)
PROC: 30233R1 Transfusion of Nonautologous Platelets into Peripheral Vein, Percutaneous Approach (ICD-10-PCS; 2020-10-25)
PROC: 5A12012 Performance of Cardiac Output, Single, Manual (ICD-10-PCS; 2020-10-25)
PROC: 5A1955Z Respiratory Ventilation, Greater than 96 Consecutive Hours (ICD-10-PCS; 2020-10-26)
PROC: 0BH17EZ Insertion of Endotracheal Airway into Trachea, Via Natural or Artificial Opening (ICD-10-PCS; 2020-10-26)
PROC: 5A12012 Performance of Cardiac Output, Single, Manual (ICD-10-PCS; 2020-11-03)
PROC: 5A12012 Performance of Cardiac Output, Single, Manual (ICD-10-PCS; 2020-11-04)
DX: A41.89 Other specified sepsis (principal); U07.1 COVID-19; J12.82 Pneumonia due to coronavirus disease 2019; G93.41 Metabolic encephalopathy; J96.01 Acute respiratory failure with hypoxia; I21.A1 Myocardial infarction type 2; N17.0 Acute kidney failure with tubular necrosis; G93.1 Anoxic brain damage, not elsewhere classified; E66.01 Morbid (severe) obesity due to excess calories; E11.22 Type 2 diabetes mellitus with diabetic chronic kidney disease; E87.0 Hyperosmolality and hypernatremia; I46.9 Cardiac arrest, cause unspecified; R65.21 Severe sepsis with septic shock; E87.5 Hyperkalemia; I82.411 Acute embolism and thrombosis of right femoral vein; H53.461 Homonymous bilateral field defects, right side; J15.1 Pneumonia due to Pseudomonas; G81.91 Hemiplegia, unspecified affecting right dominant side; J69.0 Pneumonitis due to inhalation of food and vomit; I63.532 Cerebral infarction due to unspecified occlusion or stenosis of left posterior cerebral artery; D62 Acute posthemorrhagic anemia; D68.69 Other thrombophilia; D69.59 Other secondary thrombocytopenia; E43 Unspecified severe protein-calorie malnutrition; E87.2 Acidosis; F03.90 Unspecified dementia, unspecified severity, without behavioral disturbance, psychotic disturbance, mood disturbance, and anxiety; K72.90 Hepatic failure, unspecified without coma; L97.419 Non-pressure chronic ulcer of right heel and midfoot with unspecified severity; L97.429 Non-pressure chronic ulcer of left heel and midfoot with unspecified severity; E11.52 Type 2 diabetes mellitus with diabetic peripheral angiopathy with gangrene; E11.621 Type 2 diabetes mellitus with foot ulcer; E61.1 Iron deficiency; B37.49 Other urogenital candidiasis; E55.9 Vitamin D deficiency, unspecified; E87.6 Hypokalemia; Z78.1 Physical restraint status; R00.1 Bradycardia, unspecified; E78.00 Pure hypercholesterolemia, unspecified; N49.2 Inflammatory disorders of scrotum; N48.89 Other specified disorders of penis; R47.81 Slurred speech; E78.5 Hyperlipidemia, unspecified; Z79.84 Long term (current) use of oral hypoglycemic drugs; Z79.899 Other long term (current) drug therapy; Z83.3 Family history of diabetes mellitus; Z68.31 Body mass index [BMI] 31.0-31.9, adult; I13.0 Hypertensive heart and chronic kidney disease with heart failure and stage 1 through stage 4 chronic kidney disease, or unspecified chronic kidney disease; I50.30 Unspecified diastolic (congestive) heart failure; N18.32 Chronic kidney disease, stage 3b
CPT/HCPCS: 36415; 36569; 36600; 70450; 71045; 74018; 76705; 80048; 80053; 80061; 80076; 80307; 81001; 82040; 82247; 82270; 82306; 82550; 82565; 82570; 82728; 82805; 82962; 83010; 83036; 83540; 83550; 83605; 83615; 83735; 83880; 84100; 84132; 84156; 84300; 84443; 84478; 84484; 85007; 85014; 85018; 85025; 85027; 85045; 85379; 85610; 85730; 86022; 86141; 86850; 86880; 86900; 86901; 86920; 87040; 87070; 87077; 87081; 87086; 87088; 87186; 87205; 87426; 87493; 87804; 92950; 93005; 93306; 93886; 93926; 93970; 93971; 94002; 94003; 94640; 94660; 95819; 97110; 97163; 97530; C9113; G0378; J0171; J0330; J0610; J0696; J0714; J1100; J1265; J1450; J1561; J1815; J1956; J2001; J2185; J2248; J2250; J2543; J2704; J3430; J3480; J3490; J7060; P9047